=== PATIENT | male | born 1970 | race Caucasian/White ===

== ENCOUNTER 2019-09-27 19:54 | Emergency (ER) | payer OTHER, SELFPAY ==
[2019-09-27 19:55] VITALS: BP 144/93; PULSE 102; RESP 18; TEMP 37; O2SAT 98; BMI 34.0
--- NOTE | 2019-09-27 20:05 | XR_ITS ---
PROCEDURE: XR HAND RT MIN 3V CLINICAL INDICATION: HEARD SOMETHING POP Injury with pain COMPARISON: No exams were available for comparison FINDINGS: No fracture or dislocation. No lytic or blastic change. There is normal mineralization. The joint spaces are well-preserved. No significant degenerative/arthritic changes. No erosive changes evident. Other findings:None. IMPRESSION: No acute findings. Dictated by: Avni Fernandez MD 09/28/2019 07:36 Electronically signed by Avni Fernandez MD in [place] 09/28/2019 07:36
--- NOTE | 2019-09-27 20:28 | HMH.EDUTC ---
[facility] [place] Disposition Clinical Impression: Hand sprain Qualifiers: Encounter type: initial encounter Laterality: right Qualified Code(s): S63.91XA - Sprain of unspecified part of right wrist and hand, initial encounter Disposition: Home, Self-Care Condition on Discharge: Good Instructions: DI for Hand Pain, How To Perform RICE (Rest, Ice, Compress, Elevate), How to Apply an Bandar Wrap Additional Instructions: *RICE, Rest the extremity, Ice 15-20 minutes 3-4 times daily, Compress- wear the bandar wrap as discussed as much as possible to help reduce swelling and pain, Elevate the extremity when at rest *Bandar wrap is for support and help control swelling, use it except in the shower. Be sure that is not to tight but not to loose either *Elevate when resting *Ibuprofen every 6-8 hours as needed for pain an inflammation. If need something more can take Tylenol in between doses of Ibuprofen to help Immediately follow up with your family doctor for new or worsening of symptoms, or no noticeable improvement over the next 3-5 days Call back to [facility] tomorrow for official reading of your xray [phone] Follow up with PCP if no improvement or any worsening of symptoms Return if needed Straight to ER if any life threatening symptoms Referrals: Provider,Referral, MD [Primary Care Provider] - As needed Time of Disposition: 20:51 Medical Decision Making - Patricio Inquiry Pt receiving controlled substance: No Patricio was queried for this patient: No Vital Signs: 09/27/19 19:55 Temperature 98.6 F Temperature Source Oral Pulse Rate [Radial] 102 H Respiratory Rate 18 Blood Pressure [Right Arm] 144/93 H Blood Pressure Mean [Right Arm] 110 Blood Pressure Source [Right Arm] Automatic Cuff Blood Pressure Position [Right Arm] Sitting 02 Sat by Pulse Oximetry 98 Oxygen Delivery Method Room Air Orders (Tests/Meds): ORDERS Category Date Time Status XR hand RT min 3V Stat Exams 09/27/19 20:05 Taken - Radiology Data #1 Image(s): Hand Image Reviewed: Yes I reviewed the patient's radiology image No acute fracture noted, will place in bandar wrap and have patient call back to [facility] for official radiology reading and referral to Orthopedics if needed [facility] [place] HPI - General Stated complaint: Ao 0512 Drying R Hand and something Popped Time Seen by Provider: 09/27/19 20:28 Mode of Arrival: Ambulatory Source of Information: Patient Limitations: No Limitations Description of Symptoms (Recalled from Triage Doc. by RN): thinks he broke his hand or finger HEENT Symptoms (Recalled from RN notes): No Resp Symptoms (Recalled from RN notes): No Skin Symptoms (Recalled from RN notes): No MS Symptoms (Recalled from RN notes): Yes Functional Status (Recalled from RN notes): wnl - History of Present Illness Provider Complaint: Pateint states that he feels like he broke his hand and finger States that he washed his hands earlier and as he was flicking the water off his hands he felt a pop in the top of his right hand and ever since has been having pain in the top of his hand and in his index and middle finger when he moves them or tries to bend them - Related Data Home Medications Medication Instructions Recorded Confirmed Sulfamethoxazole/Trimethoprim 1 tab PO BID 04/06/19 04/06/19 [Bactrim 400-80 mg (SS) Tablet] cephALEXin [Keflex 750mg Cap] 750 mg PO Q12H 04/06/19 04/06/19 Allergies Allergy/AdvReac Type Severity Reaction Status Date / Time aspirin [ASPIRIN] Allergy Mild Unverified 05/05/17 15:17 codeine [CODEINE] Allergy Mild Unverified 05/05/17 15:17 - Worker's Comp Is this a Worker's Comp case?: No [facility] History - Hepatitis A Screen Drug use history?: No High risk sexual behaviors?: No History of sexually transmitted infection?: No 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orker?: No Do you have indoor plumbing?: Yes Do you have electricity?: Yes Attestation statement:: This patient has been screened for Hepatitis A risk fact
[2019-09-27 20:58] VITALS: BP 144/93; PULSE 102; RESP 18; TEMP 37; O2SAT 98
== END 2019-09-27 20:59 | disposition home or self-care (01) ==
PROVIDERS: Emergency Provider Nurse Practitioner
DX: S63.91XA Sprain of unspecified part of right wrist and hand, initial encounter (principal); Z88.5 Allergy status to narcotic agent; X50.0XXA Overexertion from strenuous movement or load, initial encounter; Y92.89 Other specified places as the place of occurrence of the external cause
CPT/HCPCS: 73130; 99201

== ENCOUNTER 2020-06-05 08:57 | Emergency (ER) | payer BC, OTHER, SELFPAY ==
[2020-06-05 09:05] VITALS: BP 148/94; PULSE 93; RESP 19; TEMP 36.9; O2SAT 98; BMI 28.9
[2020-06-05 09:28] VITALS: BP 148/94; PULSE 93; RESP 19; TEMP 36.9; O2SAT 98
--- NOTE | 2020-06-05 09:28 | HMH.EDUTC ---
[facility] [place] Impression: Encounter for laboratory testing for COVID-19 virus Disposition: Home, Self-Care Condition on Discharge: Good Instructions: DI for COVID-19 (Suspected or Confirmed ), Coronavirus Disease 2019, Preventing the Spread of Coronavirus Discharge Instructions Additional Instructions: *Monitor Temp, Over the counter Motrin or Tylenol as directed/as needed Tylenol every 4 hours and Motrin every 6 hours (as long as your family doctor has told you that you can take it) for fever or pain. and straight to ER if unable to lower temp less than 101.0 after medication given *Warm salt water gargles may help to soothe the throat *Throat Lozenges *Warm fluids like tea with honey may help to soothe the throat *Sleep elevated *Humidifier/Vaporizer Follow up IMMEDIATELY for new or worsening symptoms or no Noticeable improvement over the next 48-72 hours. 911 for difficulty breathing or swallowing You were tested for today for COVID19 your test result should be back in the next 24-48 hours, you may call to the [facility] to see if your test results are back in the next 48 hours [phone] [facility] hours are 9am-9pm You was given a handout with instructions for Self Quarantine and Self isolation for while you wait on test results and what to do if they are positive If you are positive the Health Dept will be contacting you also Referrals: PCP,No [Primary Care Provider] - As needed Forms: Work/School Release Time of Disposition: 09:31 Medical Decision Making - Patricio Inquiry Pt receiving controlled substance: No Patricio was queried for this patient: No Vital Signs: 06/05/20 09:05 Temperature 98.4 F Temperature Source Oral Pulse Rate [Right Brachial] 93 H Respiratory Rate 19 Blood Pressure [Right Arm] 148/94 H Blood Pressure Mean [Right Arm] 112 Blood Pressure Source [Right Arm] Automatic Cuff Blood Pressure Position [Right Arm] Sitting 02 Sat by Pulse Oximetry 98 Oxygen Delivery Method Room Air Orders (Tests/Meds): ORDERS Category Date Time Status Covid-19 Nasal PCR Sendout P&[facility] Stat Lab 06/05/20 09:09 [place]dered [facility] [place] - General Stated complaint: Covid test Time Seen by Provider: 06/05/20 09:28 Mode of Arrival: Ambulatory Source of Information: Patient Limitations: No Limitations Description of Symptoms (Recalled from Triage Doc. by RN): NEEDS COVID TEST FOR WORK. WAS SENT HOME D/T FEELING BAD HEENT Symptoms (Recalled from RN notes): No Resp Symptoms (Recalled from RN notes): No Skin Symptoms (Recalled from RN notes): No MS Symptoms (Recalled from RN notes): No Functional Status (Recalled from RN notes): WNL - History of Present Illness Provider Complaint: Patient states that he has been having body aches and chills and not feeling bad State that work sent him home and wanted him to get tested for COVID States that he has not had any fever or anything just feels blah - Related Data Home Medications Medication Instructions Recorded Confirmed Sulfamethoxazole/Trimethoprim 1 tab PO BID 04/06/19 04/06/19 [Bactrim 400-80 mg (SS) Tablet] cephALEXin [Keflex 750mg Cap] 750 mg PO Q12H 04/06/19 04/06/19 Allergies Allergy/AdvReac Type Severity Reaction Status Date / Time aspirin [ASPIRIN] Allergy Mild Unverified 05/05/17 15:17 codeine [CODEINE] Allergy Mild Unverified 05/05/17 15:17 - Worker's Comp Is this a Worker's Comp case?: No [facility] History - Hepatitis A Screen Drug use history?: No High risk sexual behaviors?: No History of sexually transmitted infection?: No 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orker?: No Do you have indoor plumbing?: Yes Do you have electricity?: Yes Attestation statement:: This patient has been screened for Hepatitis A risk factors. I have reviewed the patient's past medical history: Yes Medical History: Reports:: Diabetes Mellitus Type 2 - Social History Smoking Status: Never smoker Tobacco Type: smokeless tobacco # Packs/Day (ci
[2020-06-06 08:49] LABS: Covid-19 Nasal PCR Sendout P&C NEGATIVE
== END 2020-06-05 09:30 | disposition home or self-care (01) ==
PROVIDERS: Emergency Provider Nurse Practitioner
DX: Z20.822 Contact with and (suspected) exposure to COVID-19 (principal); E11.9 Type 2 diabetes mellitus without complications; I10 Essential (primary) hypertension; Z88.5 Allergy status to narcotic agent
CPT/HCPCS: 99202; G0463; U0004

== ENCOUNTER 2020-06-06 13:39 | Emergency (ER) | payer BC, OTHER, SELFPAY ==
[2020-06-06 13:40] VITALS: BP 141/109; PULSE 86; RESP 18; TEMP 36.8; O2SAT 97; BMI 28.9
--- NOTE | 2020-06-06 13:42 | ECG_ITS ---
APPROVED REPORT Exam: Resting ECG HR:94 bpm ECG Measurements Heart Rate 94 AXES GA 160 P 59 QRSd 86 QRS 41 QT 350 T 44 QTc 437 Conclusion Normal sinus rhythm with sinus arrhythmia Normal ECG Electronically signed by : Jhon Sutton, 06/07/2020 20:57:21
--- NOTE | 2020-06-06 13:43 | XR_ITS ---
PROCEDURE: XR CHEST PORTABLE CLINICAL HISTORY: cp Chest pain COMPARISON: CR CXR1 CHEST-PORTABLE from 11/06/2012 CR CXR CHEST(2 VIEWS-NOT PORTABLE) from 10/11/2013 CR CXR CHEST(2 VIEWS-NOT PORTABLE) from 10/16/2013 FINDINGS: The cardiomediastinal silhouette and pulmonary vascularity are within normal limits. There is increased density in both lung apices. The exam is performed in a lordotic position. The increased density may be related to the 1st ribs. Upright PA and lateral chest suggested for confirmation as apical thickening/mass cannot be excluded. No acute bony abnormalities. IMPRESSION: Nonspecific increased density in the lung apices possibly due to the technique and positioning. PA and lateral chest suggested for confirmation. Dictated by: Avni Fernandez MD 06/06/2020 15:02 Avni Fernandez MD in [place] 06/06/2020 15:02
--- NOTE | 2020-06-06 13:44 | HMH.EDGENADL ---
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 Please call a physician on this list to arrange a follow-up appointment as soon as possible. Metformin and amlodipine as prescribed for sugar and blood pressure. If your symptoms continue, go to the urgent treatment center and have a repeat Covid test in 3 days. Prescriptions: Amlodipine Besylate 5 mg PO DAILY #30 tab [id number] Metformin HCl 500 mg PO BID #60 tab Transmission Status: [id number] Referrals: PCP,No [Primary Care Provider] - - Critical Care Critical Care Time: No Attestation: On 06/06/20, the high probability of a clinically significant, sudden or life threatening deterioration of the following system(s) required my full and direct attention, intervention and personal management. The time I documented below is in addition to time spent performing reported procedures but includes the following listed in this critical care notation. Medical Decision Making - Patricio Inquiry Pt receiving controlled substance: No Vital Signs: 06/06/20 13:40 Temperature 98.2 F Temperature Source Oral Pulse Rate [Right Radial] 86 Respiratory Rate 18 Blood Pressure [Right Arm] 141/109 H Blood Pressure Mean [Right Arm] 119 Blood Pressure Source [Right Arm] Automatic Cuff Blood Pressure Position [Right Arm] Sitting 02 Sat by Pulse Oximetry 97 Oxygen Delivery Method Room Air - Lab Data Lab Results 06/06/20 13:44: WBC 5.5, RBC 5.53, Hgb 18.5 H*, Hct 51.0, MCV 92.3, MCH 33.6 H, MCHC 36.4 H, RDW 13.6, Plt Count 186, MPV 7.6, Neut % (Auto) 58.0, Lymph % (Auto) 32.6, Arroyo % (Auto) 7.5, Eos % (Auto) 1.0, Baso % (Auto) 0.8, Neut # (Auto) 3.2, Lymph # (Auto) 1.8, Arroyo # (Auto) 0.4, Eos # (Auto) 0.1, Baso # (Auto) 0.0 06/06/20 13:44: Sodium 135 L, Potassium 4.1, Chloride 100, Carbon Dioxide 25, Anion Gap 14.1, BUN 13, Creatinine 0.70, Estimated GFR 119, Est GFR ( Amer) 144, Glucose 378 H, Calcium 9.8, Total Bilirubin 0.8, AST 30, ALT 34, Alkaline Phosphatase 121, Troponin I < 0.01, Total Protein 8.0, Albumin 4.7, Globulin 3.3 H, Albumin/Globulin Ratio 1.4 06/06/20 13:44: Lipase 543 H 06/06/20 13:44: SARS-CoV-2 IgG Ab (Rapid) Negative, SARS-CoV-2 IgM Ab (Rapid) Negative 06/06/20 13:44: Magnesium 1.8 06/06/20 14:30: Lactate 1.9 06/06/20 15:09: Urine Color Yellow, Urine Appearance Clear, Urine pH 6.0, Ur Specific Odum 1.010, Urine Protein Negative, Urine Glucose (UA) 3+, Urine Ketones Negative, Urine Blood Negative, Urine Nitrate Negative, Urine Bilirubin Negative, Urine Urobilinogen 0.2, Ur Leukocyte Esterase Negative, Urine WBC Occasional, Ur Squamous Epith Cells Occasional, Urine Bacteria Trace Result diagrams: 06/06/20 13:44 06/06/20 13:44 Orders (Tests/Meds): ED MEDICATIONS Discontinued Medications Generic Name Dose Route Start Last Admin Trade Name Keonq PRN Reason Stop Dose Admin Iopamidol 75 ml 06/06/20 15:14 06/06/20 15:15 Iopamidol-370 (76%);100ml Bottle IV 06/06/20 15:15 75 ml ONCE ONE Administration ORDERS Category Date Time Status Troponin I Q3H Lab 06/06/20 16:45 Ordered Troponin I Q3H Lab 06/06/20 19:45 Ordered Blood Culture Stat Micro 06/06/20 14:30 Received - Radiology Data #1 Image(s): Chest Image Reviewed: Yes I reviewed the patient's radiology image PROCEDURE: XR CHEST PORTABLE CLINICAL HISTORY: cp Chest pain
[2020-06-06 13:57] LABS: Chloride 100 mmol/L (98-107); Potassium 4.1 mmoL/L (3.5-5.1); Sodium 135 mmol/L (136-145)
[2020-06-06 14:00] LABS: Alanine Aminotransferase 34 U/L (12-78); Albumin Level 4.7 g/dl (3.5-5.0); Albumin/Globulin Ratio 1.4 (1.1-1.8); Alkaline Phosphatase 121 U/L (38-126); Anion Gap 14.1 mEq/L (5-15); Aspartate Amino Transferase 30 U/L (17-59); Bilirubin,Total 0.8 mg/dl (0.2-1.3); Blood Urea Nitrogen 13 mg/dl (9-20); Carbon Dioxide 25 mmol/L (22.0-30.0); Estimated Glomerular Filt Rate 119 ml/min (>60); GFR (African American) 144 ML/MIN (>60); Globulin 3.3 g/dL (1.3-3.2)
--- NOTE | 2020-06-06 14:00 | CT_ITS ---
PROCEDURE: CT ABDOMEN PELVIS W CON CLINICAL INDICATION: abdominal pain Upper abdominal pain COMPARISON: CT ABDPELW/O CT ABD PELVIS W/O CONTRAST from 04/17/2016 TECHNIQUE: IV Contrast: 75ML Isovue 370 Oral Contrast None Axial images obtained with sagittal and coronal reformats. All CT scans at the facility use one or more dose reduction, viz: automated exposure control, ma/kV adjustment per patient size (including targeted exams where dose is matched to indication, i.e. head), or iterative reconstruction technique. FINDINGS: LOWER THORAX: Stable 4 mm nodule right lung base anteriorly. Coronary artery calcifications ABDOMEN & PELVIS: Fatty liver. The gallbladder, spleen, adrenal glands, pancreas and kidneys have an unremarkable appearance. No renal or ureteral calculi. No intestinal obstruction or free air. There are few scattered small mesenteric lymph nodes. The appendix is retrocecal.. The tip of the appendix is slightly prominent at 8 mm. This however did have a similar appearance on 04/17/2016. There is no stranding of the periappendiceal fat. There is some haziness of the periappendiceal fat and space however this is felt to be due to motion artifact as the colon on the same images have a similar appearance. There is a mild amount of retained colonic feces in the rectosigmoid region. No evidence of diverticulitis. There are mild degenerative changes in the lower thoracic spine with mild kyphosis. IMPRESSION: No acute finding. Dictated by: Avni Fernandez MD 06/06/2020 15:37 Avni Fernandez MD in [place] 06/06/2020 15:37
[2020-06-06 14:01] LABS: Calcium 9.8 mg/dl (8.4-10.2); Glucose 378 mg/dl (74-100)
[2020-06-06 14:10] VITALS: BP 152/100; PULSE 92; O2SAT 96
[2020-06-06 14:15] LABS: Troponin I < 0.01 ng/ml (0.00-0.034)
[2020-06-06 14:23] LABS: Basophils % 0.8 % (0.1-2.0); Eosinophils # 0.1 K/mm3 (0.0-0.4); Lymphocytes # 1.8 K/mm3 (0.7-4.5); Mean Corpuscular HGB Conc 36.4 g/dL (31.8-35.4); Monocytes # 0.4 K/mm3 (0.1-1.0); Neutrophils # 3.2 K/mm3 (1.8-7.8); Red Cell Distribution Width 13.6 % (11.5-17.5)
[2020-06-06 14:34] LABS: Coronavirus 19 IgG Antibody Negative (Negative); Coronavirus 19 IgM Antibody Negative (Negative)
[2020-06-06 14:41] LABS: Lymphocytes % 32.6 % (10-50); Mean Corpuscular Hemoglobin 33.6 pg (27.0-31.2); Mean Corpuscular Volume 92.3 fl (80-94); Mean Platelet Volume 7.6 fl (7.4-10.4); Monocytes % 7.5 % (1.7-9.3); Platelet Count 186 K/mm3 (142-424); Red Blood Count 5.53 M/mm3 (4.60-6.20); White Blood Count 5.5 K/mm3 (4.8-10.8)
[2020-06-06 14:44] LABS: Hemoglobin 18.5 g/dL (14.1-18.0)
--- NOTE | 2020-06-06 14:56 | PC.NURSE ---
pt returned from radiology
[2020-06-06 14:59] LABS: Lactic Acid 1.9 mmol/L (0.7-2.1)
[2020-06-06 15:00] VITALS: BP 169/109; PULSE 82; O2SAT 97
[2020-06-06 15:13] LABS: Microscopic, Urine URINE MICROSCOPIC (MICROSCOPIC)
[2020-06-06 15:15] LABS: Appearance,Urine CLEAR (Clear); Bilirubin,Urine Negative (Negative); Blood, Urine Negative (Negative); Color,Urine YELLOW (Yellow); Glucose,Urine (UA) 3+ (Negative); Ketones,Urine Negative (Negative); Leukocyte Esterase,Urine Negative (Negative); Nitrate,Urine Negative (Negative); Protein,Urine Negative (Negative); Urobilinogen,Urine 0.2 EU/dl (0.2)
[2020-06-06 15:24] LABS: Lipase 543 U/L (23-300)
--- NOTE | 2020-06-06 15:29 | XR_ITS ---
PROCEDURE: XR CHEST 2V CLINICAL HISTORY: cough COMPARISON: CR CXR CHEST(2 VIEWS-NOT PORTABLE) from 10/11/2013 CR CXR CHEST(2 VIEWS-NOT PORTABLE) from 10/16/2013 DX XR CHEST PORTABLE from 06/06/2020 FINDINGS: The cardiomediastinal silhouette and pulmonary vascularity are within normal limits. The lungs are clear without infiltrates, suspicious nodules, or pleural effusions. Mild degenerative changes are present in the thoracic and lumbar spine IMPRESSION: No acute findings. Dictated by: Avni Fernandez MD 06/06/2020 15:54 Avni Fernandez MD in [place] 06/06/2020 15:54
[2020-06-06 15:30] VITALS: BP 156/107; PULSE 87; O2SAT 96
[2020-06-06 15:50] LABS: Magnesium 1.8 mg/dl (1.6-2.3)
[2020-06-06 16:00] VITALS: BP 150/109; PULSE 88; O2SAT 95
[2020-06-06 16:05] LABS: Bacteria,Urine Trace /lpf; Squamous Epithelial Cell,Urine Occasional #/hpf (0-5); WBC,Urine Occasional #/hpf (0-3)
[2020-06-06 16:36] VITALS: BP 158/108; PULSE 97; RESP 18; TEMP 36.9; O2SAT 96
== END 2020-06-06 16:36 | disposition home or self-care (01) ==
PROVIDERS: Emergency Provider Emergency Medicine
DX: R10.10 Upper abdominal pain, unspecified (principal); E11.65 Type 2 diabetes mellitus with hyperglycemia; I10 Essential (primary) hypertension; R74.8 Abnormal levels of other serum enzymes; R35.1 Nocturia; Z88.5 Allergy status to narcotic agent; Z79.899 Other long term (current) drug therapy
CPT/HCPCS: 36415; 71045; 71046; 74177; 80053; 81001; 83605; 83690; 83735; 84484; 85025; 86328; 87040; 93005; 99284; Q9967

== ENCOUNTER 2020-06-14 14:54 | Emergency (ER) | payer BC, OTHER, SELFPAY ==
[2020-06-14 15:11] VITALS: BP 142/83; PULSE 84; RESP 19; TEMP 36.9; O2SAT 98; BMI 29.2
[2020-06-14 15:21] LABS: UTC Influenza A Antigen Negative (Negative); UTC Strep Screen (Rapid) Positive (Negative)
[2020-06-14 15:22] LABS: UTC Influenza B Antigen Negative (Negative)
--- NOTE | 2020-06-14 15:30 | HMH.EDUTC ---
[facility] [place] Disposition Clinical Impression: Strep throat Disposition: Home, Self-Care Condition on Discharge: Good Instructions: Strep Throat (Alternative Therapy), DI for Strep Throat, Benzonatate, Amoxicillin, DI for COVID-19 (Suspected or Confirmed ) Additional Instructions: *Monitor Temp, Over the counter Motrin or Tylenol as directed/as needed Tylenol every 4 hours and Motrin every 6 hours (as long as your family doctor has told you that you can take it) for fever or pain. and straight to ER if unable to lower temp less than 101.0 after medication given *Warm salt water gargles may help to soothe the throat *Throat Lozenges *Warm fluids like tea with honey may help to soothe the throat *Sleep elevated *Humidifier/Vaporizer Follow up IMMEDIATELY for new or worsening symptoms or no Noticeable improvement over the next 48-72 hours. 911 for difficulty breathing or swallowing You were tested for today for COVID19 your test result should be back in the next 24-48 hours, you may call to the [facility] to see if your test results are back in the next 48 hours [phone] [facility] hours are 9am-9pm You was given a handout with instructions for Self Quarantine and Self isolation for while you wait on test results and what to do if they are positive If you are positive the Health Dept will be contacting you also Prescriptions: Amoxicillin [Amoxicillin 500mg Cap] 500 mg PO BID 10 Days #20 cap Transmission Status: Received by [facility] Benzonatate [Tessalon Perle 100mg Cap*] 100 mg PO TID PRN #15 cap PRN Reason: Cough Transmission Status: Received by [facility] Referrals: PCP,No [Primary Care Provider] - Forms: Work/School Release Time of Disposition: 15:42 Medical Decision Making - Patricio Inquiry Pt receiving controlled substance: No Patricio was queried for this patient: No Vital Signs: 06/14/20 15:11 Temperature 98.4 F Temperature Source Oral Pulse Rate [Right] 84 Respiratory Rate 19 Blood Pressure [Right Arm] 142/83 H Blood Pressure Mean [Right Arm] 102 Blood Pressure Source [Right Arm] Automatic Cuff Blood Pressure Position [Right Arm] Sitting 02 Sat by Pulse Oximetry 98 Oxygen Delivery Method Room Air - Lab Data Lab results reviewed: Yes: I reviewed the patient's lab results. Lab Results 06/14/20 15:10: Influenza Type A Ag Negative, Influenza Type B Ag Negative 06/14/20 15:10: Strep Scn Rapid [facility] Positive A Orders (Tests/Meds): ORDERS Category Date Time Status Covid-19 Nasal PCR ([facility]) Routine Lab 06/14/20 15:00 Received [facility] [place] HPI - General Stated complaint: covid test,symtoms Time Seen by Provider: 06/14/20 15:30 Mode of Arrival: Ambulatory Source of Information: Patient Limitations: No Limitations Description of Symptoms (Recalled from Triage Doc. by RN): body aches, REYNOSO, chest congesion for three days. daughter recently tested positive for the flu. HEENT Symptoms (Recalled from RN notes): Yes (REYNOSO) Resp Symptoms (Recalled from RN notes): Yes (chest congestion) Skin Symptoms (Recalled from RN notes): No MS Symptoms (Recalled from RN notes): Yes (body aches) Functional Status (Recalled from RN notes): na - History of Present Illness Provider Complaint: Patient state that he has not been feeling well for about 3-4 days States that he has been having sore throat body aches, and fever State that he was tested for COVID and it was negative but there has been several cases at his work so he wanted to get tested again State that also his daughter just had the flu - Related Data Home Medications Medication Instructions Recorded Confirmed Sulfamethoxazole/Trimethoprim 1 tab PO BID 04/06/19 04/06/19 [Bactrim 400-80 mg (SS) Tablet] cephALEXin [Keflex 750mg Cap] 750 mg PO Q12H 04/06/19 04/06/19 Previous Rx's Medication Instructions Recorded Amlodipine Besylate 5 mg PO DAILY #30 tab 06/06/20 Metformin HCl 500 mg PO BID #60 tab 06/06/20 Amoxicillin [Amoxicillin 5
[2020-06-14 15:55] VITALS: BP 131/80; PULSE 79; RESP 18; TEMP 36.8
== END 2020-06-14 15:57 | disposition home or self-care (01) ==
PROVIDERS: Emergency Provider Nurse Practitioner
DX: J02.0 Streptococcal pharyngitis (principal); Z20.822 Contact with and (suspected) exposure to COVID-19
CPT/HCPCS: 87804; 87880; 99202; G0463; U0003

== ENCOUNTER → 2020-09-21 09:06 | Outpatient (CLI) | payer BC, OTHER, SELFPAY ==
--- NOTE | 2020-09-21 09:14 | XR_ITS ---
PROCEDURE: XR SHOULDER LT MIN 2V CLINICAL INDICATION: PAIN IN LT SHOULDER COMPARISON: No exams were available for comparison FINDINGS: No fracture or dislocation. No lytic or blastic change. There is normal mineralization. The joint spaces are well-preserved. No significant degenerative/arthritic changes. No erosive changes evident. Other findings:No subacromial stenosis IMPRESSION: Negative left shoulder Dictated by: Avni Fernandez MD 09/21/2020 12:22 Avni Fernandez MD in [place] 09/21/2020 12:22
== END ==
PROVIDERS: PCP Nurse Practitioner Family; Visit Provider Nurse Practitioner Family
DX: M25.512 Pain in left shoulder (principal)
CPT/HCPCS: 73030

== ENCOUNTER 2021-03-22 09:12 | Emergency (ER) | payer BC, SELFPAY ==
[2021-03-22 09:23] VITALS: BP 146/107; PULSE 103; RESP 16; O2SAT 99; BMI 28.0
--- NOTE | 2021-03-22 09:32 | HMH.EDUTC ---
[facility] Disposition Clinical Impression: Muscle spasm of left lower extremity Disposition: Home, Self-Care Condition on Discharge: Good Instructions: DI for Muscle Spasm Additional Instructions: Follow up with PCP regarding your diabetes Prescriptions: Cyclobenzaprine HCl [Flexeril 10mg tablet] 10 mg PO Q8HP PRN 10 Days #30 tab PRN Reason: Muscle Spasm Transmission Status: Pending to [id number] Referrals: Provider,Referral, [Primary Care Provider] - Forms: Work/School Release Time of Disposition: 11:18 Medical Decision Making - Patricio Inquiry Pt receiving controlled substance: No Vital Signs: 03/22/21 09:23 03/22/21 10:51 Temperature 98.1 F Pulse Rate 103 H Pulse Rate [Left] 103 H Respiratory Rate 16 16 Blood Pressure 146/101 H Blood Pressure [Right Arm] 146/107 H Blood Pressure Mean [Right Arm] 120 02 Sat by Pulse Oximetry 99 - Lab Data Lab results reviewed: Yes: I reviewed the patient's lab results. Lab Results 03/22/21 09:53: Sodium 137, Potassium 4.6, Chloride 100, Carbon Dioxide 26, Anion Gap 15.6 H, BUN 11, Creatinine 0.80, Estimated Creat Clear 133, Estimated GFR 102, Est GFR ( Amer) 123, Glucose 324 H, Calcium 9.5, Magnesium 1.7 03/22/21 09:53: PT 11.0, INR 0.97 Result diagrams: 03/22/21 09:53 - US Data US Images: Lower Extremity ED US Reviewed: Yes: I have reviewed the patient's US results Preliminary Findings: Normal/NAD (Negative DVT per US tech) [facility] HPI - General Stated complaint: knots in back of left leg Time Seen by Provider: 03/22/21 10:04 Mode of Arrival: Ambulatory Source of Information: Patient Limitations: No Limitations Description of Symptoms (Recalled from Triage Doc. by RN): pt states he woke up around 0130 and was having a juan carlos horse. pt states he has these frequently but this is one of the worst and has not gotten any better. pt has a golf ball size knot on the L posterior upper thigh. pt HEENT Symptoms (Recalled from RN notes): No Resp Symptoms (Recalled from RN notes): No Skin Symptoms (Recalled from RN notes): No MS Symptoms (Recalled from RN notes): Yes (pt c/o L posterior upper thigh pain and a knot) Functional Status (Recalled from RN notes): na - History of Present Illness Provider Complaint: Patient presents with pain in his left leg. He states that he gets Charley Horses somewhat frequently. They usually occur at night, start in his toes, and then spread up his leg. Usually he is able to get up and walk around and work them out. Sometimes he eats a spoonful of salt and that helps. Last night, he was sleeping when a charley horse in the back of his left leg woke him from sleep. This morning he fell out of bed because he couldn't put weight on the leg and pain is now radiating up his leg. He has pain and swelling in the calf, pain and a knot just under his left buttock. Pain is radiating to his groin and low back. He states he does not take any medicines on a regular basis. He has never had a DVT. Onset (ago): hour(s) (8) Location: left, lower extremity Radiation: proximal Severity: severe Severity scale (1-10): 7 Quality: sharp, constant Consistency: constant Exacerbating factors: other (weight bearing) Associated symptoms: denies other symptoms Treatments prior to arrival: none - Related Data Home Medications Medication Instructions Recorded Confirmed Sulfamethoxazole/Trimethoprim 1 tab PO BID 04/06/19 04/06/19 [Bactrim 400-80 mg (SS) Tablet] cephALEXin [Keflex 750mg Cap] 750 mg PO Q12H 04/06/19 04/06/19 Previous Rx's Medication Instructions Recorded Amlodipine Besylate 5 mg PO DAILY #30 tab 06/06/20 Metformin HCl 500 mg PO BID #60 tab 06/06/20 Amoxicillin [Amoxicillin 500mg 500 mg PO BID 10 Days #20 cap 06/14/20 Cap] Benzonatate [Tessalon Perle 100mg 100 mg PO TID PRN #15 cap 06/14/20 Cap*] Cyclobenzaprine HCl [Flexeril 10mg 10 mg PO Q8HP PRN 10 Days #30 tab 03/22/21 tablet]
--- NOTE | 2021-03-22 09:45 | CA_ITS ---
APPROVED REPORT Left Lower Extremity Venous Study for DVT. Lock Tender: Yue Ferreira RVT Indications Lower Extremity Pain: Left MUSCLE CRAMP LT POST THIGH Vein Imaging CFV (L): compressive, spontaneous, phasic, augmentation FEM (L): compressive, spontaneous, phasic, augmentation POP (L): compressive, spontaneous, phasic, augmentation PTV (L): Compressible GSV (L): Compressible Peroneals (L):Compressible GAS (L): Compressible Findings Study suggests no evidence of DVT or SVT of the left lower extremity. Conclusion Study suggests no evidence of DVT or SVT of the left lower extremity. Critical Notification Physician Notified Date: 03/22/2021 Time: 10:05 Physician Name: Mak Peoples Electronically signed by : Avni Fernandez MD 03/22/2021 15:26:56
[2021-03-22 10:45] LABS: INR 0.97 (0.9-1.1)
[2021-03-22 10:50] LABS: Chloride 100 mmol/L (98-107); Sodium 137 mmol/L (136-145)
[2021-03-22 10:51] VITALS: BP 146/101; PULSE 103; RESP 16; TEMP 36.7
[2021-03-22 10:51] LABS: Potassium 4.6 mmoL/L (3.5-5.1)
[2021-03-22 10:53] LABS: Anion Gap 15.6 mEq/L (5-15); Blood Urea Nitrogen 11 mg/dl (9-20); Carbon Dioxide 26 mmol/L (22.0-30.0); Creatinine Clearance Estimated 133 mL/min (50-200); Estimated Glomerular Filt Rate 102 ml/min (>60); GFR (African American) 123 ML/MIN (>60)
[2021-03-22 10:54] LABS: Calcium 9.5 mg/dl (8.4-10.2); Glucose 324 mg/dl (74-100); Magnesium 1.7 mg/dl (1.6-2.3)
== END 2021-03-22 11:39 | disposition home or self-care (01) ==
PROVIDERS: Emergency Provider Physician Assistant
DX: M62.838 Other muscle spasm (principal); M79.662 Pain in left lower leg
CPT/HCPCS: 80048; 83735; 85610; 93971; 99202; G0463

== ENCOUNTER 2021-04-26 09:04 | Emergency (ER) | payer BC, SELFPAY ==
[2021-04-26 09:10] VITALS: BP 133/83; PULSE 102; RESP 19; TEMP 36.9; O2SAT 98; BMI 29.5
[2021-04-26 09:40] LABS: UTC Influenza A Antigen Negative (Negative); UTC Influenza B Antigen Negative (Negative)
--- NOTE | 2021-04-26 09:56 | HMH.EDUTC ---
[facility] [place] Disposition Clinical Impression: Viral syndrome, Exposure to COVID-19 virus Disposition: Home, Self-Care Condition on Discharge: Good Instructions: DI for Viral Syndrome, DI for COVID-19 (Suspected or Confirmed ), Preventing the Spread of Coronavirus Discharge Instructions Additional Instructions: Drink plenty of fluids. Take tylenol or ibuprofen for pain or fever. Take the medications as directed. Follow up with your regular doctor. GO TO THE ER FOR ANY WORSENING SYMPTOMS Quarantine until you know the results of your covid-19 test. If it is positive, the health department should call you and give you further instructions about your length of Quarantine and other things. Notify your school or workplace of your results and follow their instructions regarding return to work/school. Prescriptions: Ondansetron [Zofran 4mg ODT] 4 mg PO Q8HP PRN #20 tab PRN Reason: Nausea Transmission Status: Received by [id number] Referrals: Provider,Referral, [Primary Care Provider] - Forms: Work/School Release Time of Disposition: 10:10 Medical Decision Making - Medical Records Medical records reviewed: No: I reviewed the patient's medical records. - Patricio Inquiry Pt receiving controlled substance: No Vital Signs: 04/26/21 09:10 04/26/21 10:10 Temperature 98.5 F 98.5 F Temperature Source Oral Pulse Rate 102 H Pulse Rate [Right Brachial] 102 H Respiratory Rate 19 19 Blood Pressure 133/83 Blood Pressure [Right Arm] 133/83 Blood Pressure Mean [Right Arm] 99 Blood Pressure Source [Right Arm] Automatic Cuff Blood Pressure Position [Right Arm] Sitting 02 Sat by Pulse Oximetry 98 Oxygen Delivery Method Room Air - Lab Data Lab Results 04/26/21 09:30: Influenza Type A Ag Negative, Influenza Type B Ag Negative [facility] [place] HPI - General Stated complaint: sore throat, bodyaches, sob, headaches Time Seen by Provider: 04/26/21 09:56 Mode of Arrival: Ambulatory Source of Information: Patient Limitations: No Limitations Description of Symptoms (Recalled from Triage Doc. by RN): PATIENT C/O BODY ACHES, CHILLS, AND FEVER. EXPOSED TO COVID LAST WEEK HEENT Symptoms (Recalled from RN notes): No Resp Symptoms (Recalled from RN notes): No Skin Symptoms (Recalled from RN notes): No MS Symptoms (Recalled from RN notes): Yes Functional Status (Recalled from RN notes): WNL - History of Present Illness Provider Complaint: He states that he began to feel bad about 2 days ago. He denies any specific symptoms other than he feels bad and has body aches. - Related Data Home Medications Medication Instructions Recorded Confirmed Amlodipine Besylate 5 mg PO DAILY 04/26/21 04/26/21 Metformin HCl 500 mg PO BID 04/26/21 04/26/21 Previous Rx's Medication Instructions Recorded Ondansetron [Zofran 4mg ODT] 4 mg PO Q8HP PRN #20 tab 04/26/21 Allergies Allergy/AdvReac Type Severity Reaction Status Date / Time aspirin [ASPIRIN] Allergy Mild Verified 06/05/20 09:30 codeine [CODEINE] Allergy Mild Verified 06/05/20 09:30 - Worker's Comp Is this a Worker's Comp case?: No [facility] History - Hepatitis A Screen Drug use history?: No High risk sexual behaviors?: No History of sexually transmitted infection?: No 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orker?: No Do you have indoor plumbing?: Yes Do you have electricity?: Yes Attestation statement:: This patient has been screened for Hepatitis A risk factors. I have reviewed the patient's past medical history: Yes Medical History: Reports:: Diabetes Mellitus Type 2 - Social History Smoking Status: Never smoker Tobacco Type: smokeless tobacco # Packs/Day (cigarettes): 0 Alcohol Intake: never Occupational Status: other Housing: house ROS Obtained: Yes All systems reviewed & no additional complaints - Constitutional Constitutional: Reports as per HPI - Eyes Eyes: Denies eye discharge - ENT Ears, Nose, Mouth, and T
[2021-04-26 10:10] VITALS: BP 133/83; PULSE 102; RESP 19; TEMP 36.9; O2SAT 98
== END 2021-04-26 10:14 | disposition home or self-care (01) ==
PROVIDERS: Nurse Practitioner; Emergency Provider Nurse Practitioner Family
DX: U07.1 COVID-19 (principal); J02.9 Acute pharyngitis, unspecified; E11.9 Type 2 diabetes mellitus without complications; Z88.5 Allergy status to narcotic agent
CPT/HCPCS: 87804; 99202; C9803; G0463; U0003; U0005

== ENCOUNTER 2021-04-30 11:37 | Emergency (ER) | payer BC, SELFPAY ==
--- NOTE | 2021-04-30 11:37 | ECG_ITS ---
APPROVED REPORT Exam: Resting ECG HR:111 bpm ECG Measurements Heart Rate 111 AXES VA 156 P 55 QRSd 90 QRS -12 QT 338 T 25 QTc 459 Conclusion Sinus tachycardia Late R wave progression Abnormal ECG Electronically signed by : Jhon Sutton MD 04/30/2021 17:54:54
--- NOTE | 2021-04-30 11:51 | HMH.EDGENADL ---
ED Disposition Clinical Impression: Pneumonia due to COVID-19 virus, Hyperglycemia Type 2 diabetes mellitus Qualifiers: Diabetes mellitus longterm insulin use: without longterm use Diabetes mellitus complication status: without complication Qualified Code(s): E11.9 - Type 2 diabetes mellitus without complications Disposition: Home, Self-Care Condition on Discharge: Fair Instructions: DI for Diabetes Type 2, DI for Hyperglycemia -- Adult, DI for COVID-19 (Suspected or Confirmed ) Additional Instructions: You will be called with an appointment for monoclonal antibody infusion. Tylenol or ibuprofen for fever and pain. Glipizide as prescribed for diabetes. See Dr. Landa in his office next week, call for appointment. COVID-19 Isolation: Isolate yourself for a MINIMUM of 10 days from onset of symptoms: What to do: Monitor your symptoms. If you have an emergency warning sign (including trouble breathing), seek emergency medical care immediately. Stay in a separate room from other household members, if possible. Use a separate bathroom, if possible. Avoid contact with other members of the household and pets. Don?t share personal household items, like cups, towels, and utensils. Wear a mask when around other people if able. You can be around others AFTER: 10 days since symptoms first appeared AND 24 hours with no fever without the use of fever-reducing medications AND Other symptoms of COVID-19 are improving Prescriptions: glipiZIDE [Glucotrol 5mg tablet] 5 mg PO DAILY #14 tab Transmission Status: Received by [id number] Referrals: Provider,MD Tuan [Primary Care Provider] - Joao Landa MD [Staff Physician] - - Critical Care Critical Care Time: No Attestation: On , the high probability of a clinically significant, sudden or life threatening deterioration of the following system(s) required my full and direct attention, intervention and personal management. The time I documented below is in addition to time spent performing reported procedures but includes the following listed in this critical care notation. Medical Decision Making - Patricio Inquiry Pt receiving controlled substance: No Vital Signs: 04/30/21 11:56 04/30/21 15:16 Temperature 98.9 F 99 F Temperature Source Oral Pulse Rate 76 Pulse Rate [Left Radial] 112 H Respiratory Rate 18 20 Blood Pressure 136/94 H Blood Pressure [Right Arm] 161/97 H Blood Pressure Mean [Right Arm] 118 Blood Pressure Source [Right Arm] Automatic Cuff Blood Pressure Position [Right Arm] Sitting 02 Sat by Pulse Oximetry 93 L Oxygen Delivery Method Room Air Room Air - Lab Data Lab Results 04/30/21 11:50: WBC 2.4 L, RBC 5.55, Hgb 17.9, Hct 50.3, MCV 90.7, MCH 32.2 H, MCHC 35.5 H, RDW 12.6, Plt Count 74 L, MPV 8.2, Neut % (Auto) 55.9, Lymph % (Auto) 35.7, [place] % (Auto) 7.3, Eos % (Auto) 0.0 L, Baso % (Auto) 1.0, Neut # (Auto) 1.3 L, Lymph # (Auto) 0.9, [place] # (Auto) 0.2, Eos # (Auto) 0.0, Baso # (Auto) 0.0 04/30/21 11:50: Sodium 133 L, Potassium 4.4, Chloride 95 L, Carbon Dioxide 28, Anion Gap 14.4, BUN 14, Creatinine 0.70, Estimated Creat Clear 160, Estimated GFR 119, Est GFR ( Amer) 144, Glucose 330 H, Calcium 9.0, Troponin I < 0.01 04/30/21 11:50: D-Dimer 0.69 H 04/30/21 11:52: SARS-CoV-2 (PCR) Detected A, Influenza A Untype (PCR) Not detected, Influenza Type B (PCR) Not detected 04/30/21 14:53: Troponin I < 0.01 Result diagrams: 04/30/21 11:50 04/30/21 11:50 Orders (Tests/Meds): ED MEDICATIONS Discontinued Medications Generic Name Dose Route Start Last Admin Trade Name Keonq PRN Reason Stop Dose Admin Acetaminophen 650 mg 04/30/21 13:57 04/30/21 13:59 Acetaminophen 325mg Tab PO 04/30/21 13:58 650 mg ONCE ONE Administration Iopamidol 70 ml 04/30/21 14:37 04/30/21 14:38 Iopamidol-370 (76%);100ml Bottle IV 04/30/21 14:38 70 ml ONCE ONE Administration Ondansetron H
[2021-04-30 11:52] VITALS: BMI 29.5
--- NOTE | 2021-04-30 11:52 | XR_ITS ---
PROCEDURE: XR CHEST PORTABLE CLINICAL HISTORY: chest pain- covid + COMPARISON: CR CXR CHEST(2 VIEWS-NOT PORTABLE) from 10/16/2013 CR XR CHEST 2V from 06/06/2020 DX XR CHEST PORTABLE from 06/06/2020 FINDINGS: The cardiomediastinal silhouette and pulmonary vascularity are within normal limits. Vague increased density left lower lobe suspicious for an area ground-glass infiltrate which may be seen with Covid19 pneumonia No acute bony abnormalities. IMPRESSION: Left lower lobe infiltrate Dictated by: Avni Fernandez MD 04/30/2021 12:40 Avni Fernandez MD in [place] 04/30/2021 12:40
[2021-04-30 11:56] VITALS: BP 161/97; PULSE 112; RESP 18; TEMP 37.2; O2SAT 93; BMI 29.5
[2021-04-30 12:09] LABS: Hematocrit 50.3 % (42.0-52.0); Hemoglobin 17.9 g/dL (14.1-18.0); Lymphocytes # 0.9 K/mm3 (0.7-4.5); Lymphocytes % 35.7 % (10-50); Mean Corpuscular HGB Conc 35.5 g/dL (31.8-35.4); Mean Corpuscular Hemoglobin 32.2 pg (27.0-31.2); Mean Corpuscular Volume 90.7 fl (80-94); Mean Platelet Volume 8.2 fl (7.4-10.4); Monocytes # 0.2 K/mm3 (0.1-1.0); Monocytes % 7.3 % (1.7-9.3); Neutrophils # 1.3 K/mm3 (1.8-7.8); Neutrophils % 55.9 % (37.0-80.0); Platelet Count 74 K/mm3 (142-424); Red Blood Count 5.55 M/mm3 (4.60-6.20); Red Cell Distribution Width 12.6 % (11.5-17.5); White Blood Count 2.4 K/mm3 (4.8-10.8)
[2021-04-30 12:10] LABS: Influenza A, PCR Not Detected (NotDetected); Influenza B, PCR Not Detected (NotDetected)
[2021-04-30 12:10] LABS: Chloride 95 mmol/L (98-107); Potassium 4.4 mmoL/L (3.5-5.1); Sodium 133 mmol/L (136-145)
[2021-04-30 12:13] LABS: Anion Gap 14.4 mEq/L (5-15); Blood Urea Nitrogen 14 mg/dl (9-20); Carbon Dioxide 28 mmol/L (22.0-30.0); Creatinine Clearance Estimated 160 mL/min (50-200); Estimated Glomerular Filt Rate 119 ml/min (>60); GFR (African American) 144 ML/MIN (>60); Glucose 330 mg/dl (74-100)
[2021-04-30 12:25] LABS: D-Dimer 0.69 ug/mL (0.0-0.5)
[2021-04-30 12:26] LABS: Troponin I < 0.01 ng/ml (0.00-0.034)
[2021-04-30 12:38] LABS: Coronavirus 19, PCR Detected (NotDetected)
--- NOTE | 2021-04-30 13:50 | CT_ITS ---
PROCEDURE: CT ANGIO CHEST PE PROTOCOL CLINCIAL INDICATION: covid, chest pain, elev d-dimer COMPARISON: No exams were available for comparison TECHNIQUE: IV Contrast: 70ML Isovue 370 Axial images obtained with sagittal and coronal reformats. All CT scans at the facility use one or more dose reduction, viz: automated exposure control, ma/kV adjustment per patient size (including targeted exams where dose is matched to indication, i.e. head), or iterative reconstruction technique. FINDINGS: No evidence of pulmonary embolus, aortic aneurysm, or aortic dissection. Scattered one multifocal peripheral ground glass infiltrates are present in both upper and lower lobes consistent with Covid19 pneumonia. Minimal atelectatic changes in the lung bases. No effusions. No evidence of pneumothorax. Small pulmonary nodules may be obscured by the opacities. No acute bony anomalies Fatty liver with hepatomegaly and borderline splenomegaly. IMPRESSION: 1. No evidence of pulmonary embolus, aortic aneurysm, or aortic dissection. 2. Findings compatible with mild multifocal Covid19 pneumonia Dictated by: Avni Fernandez MD 04/30/2021 14:49 Avni Fernandez MD in [place] 04/30/2021 14:49
[2021-04-30 15:16] VITALS: BP 136/94; PULSE 76; RESP 20; TEMP 37.2; O2SAT 98
[2021-04-30 15:43] LABS: Troponin I < 0.01 ng/ml (0.00-0.034)
== END 2021-04-30 15:18 | disposition home or self-care (01) ==
PROVIDERS: Emergency Provider Emergency Medicine
DX: U07.1 COVID-19 (principal); J12.82 Pneumonia due to coronavirus disease 2019; E11.65 Type 2 diabetes mellitus with hyperglycemia; Z79.899 Other long term (current) drug therapy
CPT/HCPCS: 36415; 71045; 71275; 80048; 84484; 85025; 85378; 93005; 96374; 99283; C9803; J2405; Q9967; U0003; U0005

== ENCOUNTER 2021-05-01 20:52 | Emergency (ER) | payer BC, SELFPAY ==
[2021-05-01 20:53] VITALS: BP 121/77; PULSE 101; RESP 20; TEMP 36.9; O2SAT 96; BMI 29.5
--- NOTE | 2021-05-01 21:16 | HMH.EDSOB ---
ED Disposition Clinical Impression: COVID-19 Disposition: Home, Self-Care Condition on Discharge: Good Instructions: DI for COVID-19 (Suspected or Confirmed ) Additional Instructions: fluids and see pcp for follow up Prescriptions: dexAMETHasone [Decadron] 6 mg PO DAILY #6 tab Transmission Status: Pending to [id number] Referrals: Provider,Referral, [Primary Care Provider] - - Critical Care Critical Care Time: No Attestation: On 05/01/21, the high probability of a clinically significant, sudden or life threatening deterioration of the following system(s) required my full and direct attention, intervention and personal management. The time I documented below is in addition to time spent performing reported procedures but includes the following listed in this critical care notation. Medical Decision Making - Medical Records Medical records reviewed: Yes: I reviewed the patient's medical records. - Patricio Inquiry Pt receiving controlled substance: No Vital Signs: 05/01/21 20:53 Temperature 98.4 F Temperature Source Oral Pulse Rate [Left] 101 H Respiratory Rate 20 Blood Pressure [Right Arm] 121/77 Blood Pressure Mean [Right Arm] 91 02 Sat by Pulse Oximetry 96 Oxygen Delivery Method Room Air - Lab Data Lab results reviewed: Yes: I reviewed the patient's lab results. Orders (Tests/Meds): ED MEDICATIONS Generic Name Dose Route Start Last Admin Trade Name Freq PRN Reason Stop Dose Admin Sodium Chloride 1,000 mls @ 999 mls/hr 05/01/21 21:15 05/01/21 21:20 Sod Chlor 0.9% 1000ml Bag IV 05/01/21 22:15 999 mls/hr .Q1H1M RUTHIE Administration Discontinued Medications Generic Name Dose Route Start Last Admin Trade Name Freq PRN Reason Stop Dose Admin Albuterol/Ipratropium 2 puff 05/01/21 21:16 05/01/21 21:31 Combivent 20mcg/100mcg Respimat Inhaler IH 05/01/21 21:17 2 puff ONCE ONE Administration Dexamethasone Sodium Phosphate 10 mg 05/01/21 21:14 05/01/21 21:20 Dexamethasone 4mg/Ml 5ml Mdv IV 05/01/21 21:15 10 mg ONCE ONE Administration Medical Decision Narrative: stable exam and vital signs Resp/SOB HPI - General Chief Complaint: Shortness of Breath/Dyspnea Stated Complaint: covid +. SOB, lungs hurt Time Seen by Provider: 05/01/21 21:16 Mode of Arrival: Ambulatory Source of Information: Patient, Medical Record Limitations: No Limitations Description of Symptoms (Recalled from ER Triage Doc. by RN): pt diagnosed covid positive pt reports he cannot breathe when he lays down it feels like there is pressure in his chest - History of Present Illness recent covid-19 dx with feeling of sob worse with laying down - neg cta for pul emboli yesterday Complaint: shortness of breath Onset (ago): day(s) Context: recent illness Severity: moderate Known history of: diabetes Associated symptoms: denies other symptoms Treatment prior to arrival: none - Related Data Home oxygen amount: none Home Medications Medication Instructions Recorded Confirmed Amlodipine Besylate 5 mg PO DAILY 04/26/21 04/26/21 Metformin HCl 500 mg PO BID 04/26/21 04/26/21 Previous Rx's Medication Instructions Recorded Ondansetron [Zofran 4mg ODT] 4 mg PO Q8HP PRN #20 tab 04/26/21 glipiZIDE [Glucotrol 5mg tablet] 5 mg PO DAILY #14 tab 04/30/21 dexAMETHasone [Decadron] 6 mg PO DAILY #6 tab 05/01/21 Allergies Allergy/AdvReac Type Severity Reaction Status Date / Time aspirin [ASPIRIN] Allergy Mild Verified 06/05/20 09:30 codeine [CODEINE] Allergy Mild Verified 06/05/20 09:30 [facility] History - Hepatitis A Screen Drug use history?: No High risk sexual behaviors?: No History of sexually transmitted infection?: No 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orker?: No Do you have indoor plumbing?: Yes Do you have electricity?: Yes Attestation statement:: This patient has been screened for Hepatitis A risk factors. I have reviewed the patient'
[2021-05-01 22:12] VITALS: BP 145/85; PULSE 98; RESP 16; TEMP 36.9
== END 2021-05-01 22:25 | disposition home or self-care (01) ==
PROVIDERS: Emergency Provider Emergency Medicine
DX: U07.1 COVID-19 (principal); E11.9 Type 2 diabetes mellitus without complications
CPT/HCPCS: 96365; 96375; 99282

== ENCOUNTER 2021-05-03 08:44 | Outpatient (CLI) | payer BC, SELFPAY ==
[2021-05-03] VITALS (9 sets, daily range): BP systolic 116–138; BP diastolic 81–94; PULSE 88–94; RESP 16–18; TEMP 36.8–36.9; O2SAT 93–95
== END 2021-05-03 11:20 | disposition home or self-care (01) ==
LOC: INF 08:46
PROVIDERS: Visit Provider Emergency Medicine
DX: U07.1 COVID-19 (principal); Z23 Encounter for immunization
CPT/HCPCS: 96365

== ENCOUNTER 2021-05-08 09:07 | Emergency (ER) | payer BC, SELFPAY ==
[2021-05-08 09:10] VITALS: BP 125/84; PULSE 96; RESP 22; TEMP 36.6; O2SAT 94; BMI 29.5
--- NOTE | 2021-05-08 09:50 | HMH.EDUTC ---
[facility] Clinical Impression: Viral syndrome Disposition: Home, Self-Care Condition on Discharge: Good Instructions: How to Use an Incentive Spirometer, DI for COVID-19 (Suspected or Confirmed ), Preventing the Spread of Coronavirus Discharge Instructions Additional Instructions: Use the incentive spirometer to help your lungs as you was instructed in the [facility] Make sure that you are drinking plenty of fluids and Taking vitamins to help Return if needed Straight to ER if any life threatening symptoms Referrals: Provider,Referral, MD [Primary Care Provider] - Forms: Work/School Release Medical Decision Making - Patricio Inquiry Pt receiving controlled substance: No Patricio was queried for this patient: No Vital Signs: 05/08/21 09:10 05/08/21 10:07 Temperature 97.9 F 97.9 F Temperature Source Oral Pulse Rate 96 H Pulse Rate [Right Brachial] 96 H Respiratory Rate 22 22 Blood Pressure 125/84 Blood Pressure [Right Arm] 125/84 Blood Pressure Mean [Right Arm] 97 Blood Pressure Source [Right Arm] Automatic Cuff Blood Pressure Position [Right Arm] Sitting 02 Sat by Pulse Oximetry 94 L Oxygen Delivery Method Room Air Medical Decision Narrative: Discussed repeat xray with patient and he declined states that he was here for follow up visit for COVID and wanted to get his Short term paper filled out [facility] HPI - General Stated complaint: had PNA, hurting in lungs Time Seen by Provider: 05/08/21 09:50 Mode of Arrival: Ambulatory Source of Information: Patient Limitations: No Limitations Description of Symptoms (Recalled from Triage Doc. by RN): PATIENT REPORTS HE WAS DIAGNOSED WITH COVID 2 WEEKS AGO AND STATES HE ALSO DEVELOPED PNEUMONIA. HE C/O COUGH WITH CHEST PRESSURE AND SOA. HE STATES HE WANTS TO SEE IF HIS PNEUMONIA IS GETTING BETTER AND TO HAVE PAPERS FILLED OUT FOR WORK HEENT Symptoms (Recalled from RN notes): No Resp Symptoms (Recalled from RN notes): Yes Skin Symptoms (Recalled from RN notes): No MS Symptoms (Recalled from RN notes): No Functional Status (Recalled from RN notes): WNL - History of Present Illness Provider Complaint: Patient states he was dx with COVID on 04/26 States that then he came back in on 04/30 and had chest xray and CT and they told him he had COVID pneumonia and had the COVID infusion States that he is feeling better now and wanted to come back in and get checked to see where he is at with the COVID and get a check up because he doesnt have a PCP and was still feeling fatigued and winded at times plus get his papers filled out for his short term disability - Related Data Home Medications Medication Instructions Recorded Confirmed Amlodipine Besylate 5 mg PO DAILY 04/26/21 04/26/21 Metformin HCl 500 mg PO BID 04/26/21 04/26/21 Previous Rx's Medication Instructions Recorded Ondansetron [Zofran 4mg ODT] 4 mg PO Q8HP PRN #20 tab 04/26/21 glipiZIDE [Glucotrol 5mg tablet] 5 mg PO DAILY #14 tab 04/30/21 dexAMETHasone [Decadron] 6 mg PO DAILY #6 tab 05/01/21 Allergies Allergy/AdvReac Type Severity Reaction Status Date / Time aspirin [ASPIRIN] Allergy Mild Verified 06/05/20 09:30 codeine [CODEINE] Allergy Mild Verified 06/05/20 09:30 - Worker's Comp Is this a Worker's Comp case?: No [facility] History - Hepatitis A Screen Drug use history?: No High risk sexual behaviors?: No History of sexually transmitted infection?: No 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orker?: No Do you have indoor plumbing?: Yes Do you have electricity?: Yes Attestation statement:: This patient has been screened for Hepatitis A risk factors. I have reviewed the patient's past medical history: Yes Medical History: Reports:: Diabetes Mellitus Type 2 - Social History Smoking Status: Never smoker Tobacco Type: smokeless tobacco # Packs/Day (cigarettes): 0 Alcohol Intake: never Occupational Status: other Housing: house ROS Obtained: Yes All systems reviewed & no addition
[2021-05-08 10:07] VITALS: BP 125/84; PULSE 96; RESP 22; TEMP 36.6; O2SAT 94
--- NOTE | 2021-05-08 10:09 | PC.NURSE ---
PATIENT GIVEN AN INCENTIVE SPIROMETER AND EDUCATED ON USE
== END 2021-05-08 10:11 | disposition home or self-care (01) ==
PROVIDERS: Emergency Provider Nurse Practitioner
DX: B34.9 Viral infection, unspecified (principal); J12.82 Pneumonia due to coronavirus disease 2019; E11.9 Type 2 diabetes mellitus without complications; Z79.84 Long term (current) use of oral hypoglycemic drugs
CPT/HCPCS: 99202; G0463

== ENCOUNTER 2021-07-31 14:43 | Emergency (ER) | payer BC, SELFPAY ==
[2021-07-31 16:02] VITALS: BP 124/88; PULSE 101; RESP 19; TEMP 37; O2SAT 99; BMI 31.0
--- NOTE | 2021-07-31 16:13 | HMH.EDUTC ---
[facility] [place] Disposition Clinical Impression: Vomiting and diarrhea Disposition: Home, Self-Care Condition on Discharge: Good Instructions: Diarrhea, Nausea and Vomiting-Adult, Ondansetron Additional Instructions: Drink extra fluids with and between meals. If you have difficulty drinking, try very small amounts of water or suck on ice chips. ? Avoid fruit juices, as these do not replace minerals and can actually increase diarrhea. ? Children and adults can use sports drinks to replenish electrolytes. Younger children and infants should use products formulated for children, like oral rehydration solutions. ? Eat food in small amounts and let your stomach recover. ? Get lots of rest. You may feel tired or weak. ? No greasy or fried foods for the next 24-48 hours BRAT diet Bananas Rice Apples and Tom Bean ? Make sure to drink plenty of liquids ? Return if needed ? Straight to ER if any life threatening symptoms ? Zofran as prescribed ? You was given an outpatient order for diarrhea panel, please collect specimen and bring back to outpatient lab then call back to the [facility] or follow up with family doctor for results ? Follow up with family doctor in the next 48-72 hours if no improvement or any worsening of symptoms Prescriptions: Ondansetron [Zofran 4mg ODT] 4 mg PO TIDP PRN #20 tab PRN Reason: Vomiting Transmission Status: Pending to [id number] Referrals: Provider,Referral, MD [Primary Care Provider] - As needed Forms: Work/School Release Time of Disposition: 17:01 Medical Decision Making - Patricio Inquiry Pt receiving controlled substance: No Patricio was queried for this patient: No Vital Signs: 07/31/21 16:02 Temperature 98.6 F Temperature Source Oral Pulse Rate [Left] 101 H Respiratory Rate 19 Blood Pressure [Right Arm] 124/88 Blood Pressure Mean [Right Arm] 100 02 Sat by Pulse Oximetry 99 Orders (Tests/Meds): ED MEDICATIONS Discontinued Medications Generic Name Dose Route Start Last Admin Trade Name Freq PRN Reason Stop Dose Admin Ondansetron HCl 4 mg 07/31/21 16:17 07/31/21 16:24 Ondansetron 4mg Odt SL 07/31/21 16:18 4 mg ONCE ONE Administration Medical Decision Narrative: After zofran patient able to drink water and keep it down [facility] [place] HPI - General Stated complaint: vomiting,diarrhea Time Seen by Provider: 07/31/21 16:13 Mode of Arrival: Ambulatory Source of Information: Patient Limitations: No Limitations Description of Symptoms (Recalled from Triage Doc. by RN): PT STATES HE HAS HAD N/V/D SINCE 299. HEENT Symptoms (Recalled from RN notes): No Resp Symptoms (Recalled from RN notes): No Skin Symptoms (Recalled from RN notes): No MS Symptoms (Recalled from RN notes): No Functional Status (Recalled from RN notes): WNL - History of Present Illness Provider Complaint: Patient states that he started this morning around 3am with vomiting and diarrhea States that he has been trying to drink today but has been vomiting anytime he tries to eat something so he came in to get it checked - Related Data Home Medications Medication Instructions Recorded Confirmed Amlodipine Besylate 5 mg PO DAILY 04/26/21 04/26/21 Metformin HCl 500 mg PO BID 04/26/21 04/26/21 Previous Rx's Medication Instructions Recorded Ondansetron [Zofran 4mg ODT] 4 mg PO Q8HP PRN #20 tab 04/26/21 glipiZIDE [Glucotrol 5mg tablet] 5 mg PO DAILY #14 tab 04/30/21 dexAMETHasone [Decadron] 6 mg PO DAILY #6 tab 05/01/21 Ondansetron [Zofran 4mg ODT] 4 mg PO TIDP PRN #20 tab 07/31/21 Allergies Allergy/AdvReac Type Severity Reaction Status Date / Time aspirin [ASPIRIN] Allergy Mild Verified 06/05/20 09:30 codeine [CODEINE] Allergy Mild Verified 06/05/20 09:30 - Worker's Comp Is this a Worker's Comp case?: No [facility] History - Hepatitis A Screen Drug use history?: No High risk sexual behaviors?: No History of sexually transmitted infection?: No 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
[2021-07-31 17:07] VITALS: BP 124/88; PULSE 101; RESP 19; TEMP 37
== END 2021-07-31 17:08 | disposition home or self-care (01) ==
PROVIDERS: Emergency Provider Nurse Practitioner
DX: R11.10 Vomiting, unspecified (principal); R19.7 Diarrhea, unspecified
CPT/HCPCS: 99212; G0463

== ENCOUNTER 2022-03-02 11:45 | Emergency (ER) | payer BC, SELFPAY ==
[2022-03-02 12:00] VITALS: BP 152/90; PULSE 70; RESP 20; TEMP 36.4; O2SAT 97; BMI 27.2
--- NOTE | 2022-03-02 12:20 | EXP.UTC ---
Discharge Plan Disposition Patient Disposition: Home, Self-Care Condition: Good Prescriptions Prescriptions: New ondansetron HCl 4 mg tablet 4 mg PO Q8H PRN (Reason: nausea and vomiting) Qty: 12 0RF No Action dexamethasone 6 MG tablet 6 mg PO DAILY Qty: 6 0RF ondansetron 4 MG tablet,disintegrating 4 mg PO TIDP PRN (Reason: Vomiting) Qty: 20 0RF metformin 500 MG tablet 500 mg PO BID amlodipine 5 MG tablet 5 mg PO DAILY ondansetron 4 MG tablet,disintegrating 4 mg PO Q8HP PRN (Reason: Nausea) Qty: 20 0RF glipizide 5 MG tablet 5 mg PO DAILY Qty: 14 0RF Referrals Follow up/Referrals: Provider,Referral, MD [Primary Care Provider] - See instructions Activity Restrictions/Add. Instructions Additional Instructions/Restrictions: Drink extra fluids with and between meals. If you have difficulty drinking, try very small amounts of water or suck on ice chips. ? Avoid fruit juices, as these do not replace minerals and can actually increase diarrhea. ? Children and adults can use sports drinks to replenish electrolytes. Younger children and infants should use products formulated for children, like oral rehydration solutions. ? Eat food in small amounts and let your stomach recover. ? Get lots of rest. You may feel tired or weak. ? No greasy or fried foods for the next 24-48 hours BRAT diet Bananas Rice Apples and [place] ? Make sure to drink plenty of liquids ? Return if needed ? Straight to ER if any life threatening symptoms ? Zofran as prescribed ? You was given an outpatient order for diarrhea panel, please collect specimen and bring back to outpatient lab then call back to the [facility] or follow up with family doctor for results ? Follow up with family doctor in the next 48-72 hours if no improvement or any worsening of symptoms Clinical Impressions Clinical Impression: Viral syndrome Stand Alone Forms Stand Alone Forms: Work/School Release Discharge ED Provider: [place]idro [facility] [place] General Stated complaint: BA, REYNOSO, Vomitting Mode of Arrival: Ambulatory Source of Information: Patient Limitations: No Limitations Time Seen by Provider: 03/02/22 12:20 Description of Symptoms (Recalled from Triage Doc. by RN): PATIENT C/O BODY ACHES, VOMITING AND DIARRHEA X 2 DAYS HEENT Symptoms (Recalled from RN notes): No Resp Symptoms (Recalled from RN notes): No Skin Symptoms (Recalled from RN notes): No MS Symptoms (Recalled from RN notes): No Functional Status (Recalled from RN notes): WNL History of Present Illness Provider Complaint: Patient states that he hasnt felt well for the last couple of days States that he has been having body aches, chills, N/V but the vomiting has now stopped and diarrhea States that he feels like he did when he had COVID before States that today he was not feeling any better so he came in to get checked out Related Data Home Medications Medication Instructions Recorded Confirmed amlodipine 5 mg tablet 5 mg PO DAILY Hypertension 04/26/21 04/26/21 metformin 500 mg tablet 500 mg PO BID Diabetes 04/26/21 04/26/21 Previous Rx's Medication Instructions Recorded ondansetron 4 mg disintegrating 4 mg PO Q8HP PRN Nausea #20 tabs 04/26/21 tablet glipizide 5 mg tablet 5 mg PO DAILY #14 tabs 04/30/21 dexamethasone 6 mg tablet 6 mg PO DAILY #6 tabs 05/01/21 ondansetron 4 mg disintegrating 4 mg PO TIDP PRN Vomiting #20 tabs 07/31/21 tablet ondansetron HCl 4 mg tablet 4 mg PO Q8H PRN nausea and 03/02/22 vomiting #12 tabs Allergies Allergy/AdvReac Type Severity Reaction Status Date / Time aspirin [ASPIRIN] Allergy Mild Verified 06/05/20 09:30 codeine [CODEINE] Allergy Mild Verified 06/05/20 09:30 Worker's Comp Is this a Worker's Comp case?: No [facility] Medical History (Updated 03/02/22 @ 13:11 by Judy Isidro APRN) Diabetes mellitus, type 2 Hyperlipidemia Hype
[2022-03-02 12:33] LABS: UTC Influenza A Antigen Negative (Negative); UTC Influenza B Antigen Negative (Negative)
[2022-03-02 12:49] LABS: Adenovirus,PCR Not Detected (NotDetected); Bordetella Pertussis Not Detected (NotDetected); Chlamydophila Pneumoniae, PCR Not Detected (NotDetected); Coronavirus 19, PCR Not Detected (NotDetected); Coronavirus 229E Not Detected (NotDetected); Coronavirus NL63 Not Detected (NotDetected); Coronavirus OC43 Not Detected (NotDetected); Coronovirus HKU1,PCR Not Detected (NotDetected); Human Metapneumovirus Not Detected (NotDetected); Influenza A, PCR Not Detected (NotDetected); Influenza AH1, 2009 Not Detected (NotDetected); Influenza AH1, PCR Not Detected (NotDetected); Influenza AH3,PCR Not Detected (NotDetected); Influenza B, PCR Not Detected (NotDetected); Mycoplasma Pneumoniae, PCR Not Detected (NotDetected); Parainfluenza 1, PCR Not Detected (NotDetected); Parainfluenza 2, PCR Not Detected (NotDetected); Parainfluenza 3, PCR Not Detected (NotDetected); Parainfluenza 4, PCR Not Detected (NotDetected); Respiratory Syncytial Virus Not Detected (NotDetected); Rhinovirus/Enterovirus Not Detected (NotDetected)
[2022-03-02 12:54] LABS: UTC Strep Screen (Rapid) Negative (Negative)
[2022-03-02 13:13] VITALS: BP 152/90; PULSE 70; RESP 20; TEMP 36.4; O2SAT 97
== END 2022-03-02 13:17 | disposition home or self-care (01) ==
PROVIDERS: Emergency Provider Nurse Practitioner
DX: B34.9 Viral infection, unspecified (principal); R19.7 Diarrhea, unspecified; M79.10 Myalgia, unspecified site; R11.2 Nausea with vomiting, unspecified; R51.9 Headache, unspecified; Z20.822 Contact with and (suspected) exposure to COVID-19; I10 Essential (primary) hypertension; E78.5 Hyperlipidemia, unspecified; E11.9 Type 2 diabetes mellitus without complications; Z79.1 Long term (current) use of non-steroidal anti-inflammatories (NSAID); Z79.84 Long term (current) use of oral hypoglycemic drugs; Z79.899 Other long term (current) drug therapy; Z88.5 Allergy status to narcotic agent; Z88.6 Allergy status to analgesic agent
CPT/HCPCS: 87581; 87632; 87798; 87804; 87880; 99213; C9803; G0463; U0003; U0005

== ENCOUNTER 2022-03-04 13:29 | Emergency (ER) | payer BC, SELFPAY ==
--- NOTE | 2022-03-04 14:08 | EXP.UTC ---
Discharge Plan Disposition Patient Disposition: Home, Self-Care Condition: Good Prescriptions Prescriptions: New benzonatate [benzonatate] 100 mg capsule 100 mg PO TIDP PRN (Reason: Cough) Qty: 30 0RF naproxen 500 mg tablet 500 mg PO BID PRN (Reason: pain) Qty: 30 0RF No Action dexamethasone 6 MG tablet 6 mg PO DAILY Qty: 6 0RF ondansetron 4 MG tablet,disintegrating 4 mg PO TIDP PRN (Reason: Vomiting) Qty: 20 0RF ondansetron HCl 4 mg tablet 4 mg PO Q8H PRN (Reason: nausea and vomiting) Qty: 12 0RF metformin 500 MG tablet 500 mg PO BID amlodipine 5 MG tablet 5 mg PO DAILY ondansetron 4 MG tablet,disintegrating 4 mg PO Q8HP PRN (Reason: Nausea) Qty: 20 0RF glipizide 5 MG tablet 5 mg PO DAILY Qty: 14 0RF Referrals Follow up/Referrals: Provider,Referral, MD [Primary Care Provider] - See instructions Activity Restrictions/Add. Instructions Additional Instructions/Restrictions: Go home and rest. It would be best if you rested tomorrow too. No heavy lifting. No twisting. Take the medications as directed, unless you are alleric to naproxen. Follow up with your regular doctor. GO TO THE ER FOR ANY WORSENING SYMPTOMS OR CONCERN, ESPECIALLY BOWEL OR BLADDER ISSUES, SADDLE AREA NUMBNESS, FEVER, ETC Clinical Impressions Clinical Impression: Rib pain on left side, Acute pain of right shoulder, Contusion of rib on left side Stand Alone Forms Stand Alone Forms: Work/School Release Instructions Patient Instructions: DI for Rib Contusion Discharge ED Provider: Eloy Keith [facility] General Stated complaint: LT side rib pain from cough, radiating neck pain Time Seen by Provider: 03/04/22 14:08 History of Present Illness Provider Complaint: he states that earlier today he was at work when he had a coughing spell. He began having left lower rib pain since this. He states that the dust at his work caused him to have this coughing spell. He denies any fever, chills, congestion, or other complaints. Related Data Home Medications Medication Instructions Recorded Confirmed amlodipine 5 mg tablet 5 mg PO DAILY Hypertension 04/26/21 04/26/21 metformin 500 mg tablet 500 mg PO BID Diabetes 04/26/21 04/26/21 Previous Rx's Medication Instructions Recorded ondansetron 4 mg disintegrating 4 mg PO Q8HP PRN Nausea #20 tabs 04/26/21 tablet glipizide 5 mg tablet 5 mg PO DAILY #14 tabs 04/30/21 dexamethasone 6 mg tablet 6 mg PO DAILY #6 tabs 05/01/21 ondansetron 4 mg disintegrating 4 mg PO TIDP PRN Vomiting #20 tabs 07/31/21 tablet ondansetron HCl 4 mg tablet 4 mg PO Q8H PRN nausea and 03/02/22 vomiting #12 tabs benzonatate 100 mg capsule 100 mg PO TIDP PRN Cough #30 caps 03/04/22 naproxen 500 mg tablet 500 mg PO BID PRN pain #30 tabs 03/04/22 Allergies Allergy/AdvReac Type Severity Reaction Status Date / Time aspirin [ASPIRIN] Allergy Mild Verified 03/04/22 14:15 codeine [CODEINE] Allergy Mild Verified 03/04/22 14:15 [facility] Medical History Diabetes mellitus, type 2 Hyperlipidemia Hypertension Social History Smoking Status: Never smoker alcohol intake: never current occupational status: employed Travel in the last 8 weeks: None housing: house ROS Obtained: Yes All systems reviewed & no additional complaints except as documented Constitutional Constitutional: Denies chills and Denies fever(s) Eyes Eyes: Denies eye discharge ENT Ears, Nose, Mouth, and Throat: Denies dizziness, Denies otalgia and Denies sore throat Cardiovascular Cardiovascular: Denies chest pain Respiratory Respiratory: Denies shortness of breath, Denies chest congestion, Denies cough, Denies stridor and Denies wheezing Gastrointestinal Gastrointestingal: Denies nausea or vomiting Musculoskeletal Musculoskeletal: Reports system reviewed and no additio
--- NOTE | 2022-03-04 14:09 | XR_ITS ---
FINAL REPORT CLINICAL HISTORY: pain FINDINGS: Multiple views of the left ribs were obtained. There is mild irregularity of the distal left 9th rib worrisome for a fracture. There is a probable chronic fracture of the left 5th distal rib. The visualized lungs are clear. No pneumothorax is identified. IMPRESSION: Mild irregularity of the distal left 9th rib worrisome for fracture. No pneumothorax. Reviewed, Interpreted and Dictated by Layo Howard III, MD Transcribed by David Dobbs Authenticated and [facility]
[2022-03-04 14:11] VITALS: BP 128/81; PULSE 92; RESP 16; TEMP 36.5; O2SAT 97; BMI 33.2
--- NOTE | 2022-03-04 14:13 | XR_ITS ---
FINAL REPORT CLINICAL HISTORY: injury. right shoulder pain FINDINGS: RIGHT SHOULDER: 3 views of the right shoulder were obtained. There is no acute fracture or dislocation. There are mild degenerative changes of the acromioclavicular and the glenohumeral joints. There is a small calcification inferior to the glenoid. IMPRESSION: No acute fracture Reviewed, Interpreted and Dictated by Layo Howard III, MD Transcribed by David Dobbs Authenticated and [facility]
[2022-03-04 14:49] VITALS: BP 128/81; PULSE 92; RESP 16; TEMP 36.5
== END 2022-03-04 14:52 | disposition home or self-care (01) ==
PROVIDERS: Emergency Provider Nurse Practitioner Family
DX: S20.212A Contusion of left front wall of thorax, initial encounter (principal); M54.2 Cervicalgia; M25.511 Pain in right shoulder; R05.9 Cough, unspecified; R11.2 Nausea with vomiting, unspecified; I10 Essential (primary) hypertension; E78.5 Hyperlipidemia, unspecified; E11.9 Type 2 diabetes mellitus without complications; Z79.84 Long term (current) use of oral hypoglycemic drugs; Z79.899 Other long term (current) drug therapy; Z88.5 Allergy status to narcotic agent; Z88.6 Allergy status to analgesic agent; Z87.891 Personal history of nicotine dependence
CPT/HCPCS: 71101; 73030; 99213; G0463

== ENCOUNTER 2022-03-09 19:45 | Emergency (ER) | payer BC, SELFPAY ==
[2022-03-09 19:47] VITALS: BP 189/115; PULSE 80; RESP 18; TEMP 36.4; O2SAT 97; BMI 34.7
--- NOTE | 2022-03-09 20:13 | ECG_ITS ---
APPROVED REPORT Exam: Resting ECG HR:77 bpm ECG Measurements Heart Rate 77 AXES NC 171 P 63 QRSd 92 QRS 40 QT 354 T 17 QTc 386 Conclusion SINUS RHYTHM NONSPECIFIC T-WAVE ABNORMALITY BORDERLINE ECG UNCONFIRMED REPORT Electronically signed by : Jhon Sutton MD 03/10/2022 16:38:49
--- NOTE | 2022-03-09 20:17 | XR_ITS ---
PROCEDURE INFORMATION: Exam: XR Chest Exam date and time: 03/09/2022 8:33 PM Age: 51 years old Clinical indication: Cough; Sternal or substernal pain; Additional info: Pain, cough TECHNIQUE: Imaging protocol: Radiologic exam of the chest. Views: 1 view. COMPARISON: CR XR RIBS LT MIN 3V W CXR1V 03/04/2022 2:15 PM FINDINGS: Lungs: Unremarkable. No consolidation. Artifact is superimposed upon the lung apices. Pleural spaces: Unremarkable. No pleural effusion. No pneumothorax. Heart/Mediastinum: Unremarkable. No cardiomegaly. Bones/joints: Unremarkable. IMPRESSION: No acute findings.
--- NOTE | 2022-03-09 20:22 | PC.NURSE ---
RAD at for CXR
--- NOTE | 2022-03-09 20:25 | HMH.EDGENADL ---
Discharge Plan Disposition Patient Disposition: Home, Self-Care Condition: Good Prescriptions Prescriptions: New methocarbamol 500 mg tablet 500 mg PO Q8H PRN (Reason: muscle spasm) Qty: 14 0RF No Action dexamethasone 6 MG tablet 6 mg PO DAILY Qty: 6 0RF ondansetron 4 MG tablet,disintegrating 4 mg PO TIDP PRN (Reason: Vomiting) Qty: 20 0RF ondansetron HCl 4 mg tablet 4 mg PO Q8H PRN (Reason: nausea and vomiting) Qty: 12 0RF benzonatate [benzonatate] 100 mg capsule 100 mg PO TIDP PRN (Reason: Cough) Qty: 30 0RF naproxen 500 mg tablet 500 mg PO BID PRN (Reason: pain) Qty: 30 0RF metformin 500 MG tablet 500 mg PO BID amlodipine 5 MG tablet 5 mg PO DAILY ondansetron 4 MG tablet,disintegrating 4 mg PO Q8HP PRN (Reason: Nausea) Qty: 20 0RF glipizide 5 MG tablet 5 mg PO DAILY Qty: 14 0RF Referrals Follow up/Referrals: Provider,Referral, MD [Primary Care Provider] - See instructions Activity Restrictions/Add. Instructions Additional Instructions/Restrictions: You have been evaluated for left-sided rib pain. Likely due to a rib being out of place. Please take anti-inflammatory medication like naproxen or ibuprofen. Take Robaxin as needed for muscle spasm. Follow-up with your primary care doctor in 1 to 2 days for symptom recheck. Return to the emergency department at once for any new or worsening symptoms, pain, difficulty breathing, other concerns Clinical Impressions Clinical Impression: Rib pain on left side, Rib cage dysfunction Stand Alone Forms Stand Alone Forms: Work/School Release Instructions Patient Instructions: DI for Rib Contusion, DI for Musculoskeletal Pain Discharge ED Provider: Lakshmi Long Adult HPI General Chief complaint: PAIN Stated complaint: ao 03/04 rib injured, pain Time Seen by Provider: 03/09/22 20:07 Mode of Arrival: Ambulatory Source of Information: Patient Limitations: No Limitations Description of Symptoms (Recalled from ER Triage Doc. by RN): Pt states that he had a cough on 03/04 and felt a pop in his left ribs. States that he went to the [facility] and had an xray and was diagnosed with injured cartilage. Says that the pain has continued since then but now he feels a heaviness in his lungs and feels like he is wearing a backpack . History of Present Illness HPI narrative: 51-year-old male presenting to the emergency department with left-sided rib pain. Pain started on March 04, 5 days ago. He had a coughing fit and felt a pop on the left side of his chest. Pain was sharp, intense. It is now persistent, worse with motion and when taking a deep breath. He was evaluated urgent treatment where x-ray showed no fracture. He was started on naproxen. He continues to have a dry cough. Nonproductive. Denies recent exertional chest pain. Pain does not radiate to the jaw, arm, back. No associated nausea or diaphoresis. After COVID, was told he had a few spots on his lungs. Denies history of lung cancer, COPD, emphysema, CAD. Related Data Home Medications Medication Instructions Recorded Confirmed amlodipine 5 mg tablet 5 mg PO DAILY Hypertension 04/26/21 04/26/21 metformin 500 mg tablet 500 mg PO BID Diabetes 04/26/21 04/26/21 Previous Rx's Medication Instructions Recorded ondansetron 4 mg disintegrating 4 mg PO Q8HP PRN Nausea #20 tabs 04/26/21 tablet glipizide 5 mg tablet 5 mg PO DAILY #14 tabs 04/30/21 dexamethasone 6 mg tablet 6 mg PO DAILY #6 tabs 05/01/21 ondansetron 4 mg disintegrating 4 mg PO TIDP PRN Vomiting #20 tabs 07/31/21 tablet ondansetron HCl 4 mg tablet 4 mg PO Q8H PRN nausea and 03/02/22 vomiting #12 tabs benzonatate 100 mg capsule 100 mg PO TIDP PRN Cough #30 caps 03/04/22 naproxen 500 mg tablet 500 mg PO BID PRN pain #30 tabs 03/04/22 methocarbamol 500 mg tablet 500 mg PO Q8H PRN muscle spasm #14 03/09/22 tabs Allergies Allergy/AdvReac Type Severity Reaction Status Date /
[2022-03-09 20:44] LABS: Basophils # 0.1 K/mm3 (0-0.2); Basophils % 1.7 % (0.1-2.0); Eosinophils # 0.2 K/mm3 (0.0-0.4); Eosinophils % 2.7 % (0.1-12.0); Hematocrit 50.5 % (42.0-52.0); Hemoglobin 16.4 g/dL (14.1-18.0); Lymphocytes # 2.1 K/mm3 (0.7-4.5); Lymphocytes % 37.3 % (10-50); Mean Corpuscular HGB Conc 32.4 g/dL (31.8-35.4); Mean Corpuscular Hemoglobin 30.5 pg (27.0-31.2); Mean Platelet Volume 7.6 fl (7.4-10.4); Monocytes # 0.5 K/mm3 (0.1-1.0); Monocytes % 8.8 % (1.7-9.3); Neutrophils # 2.7 K/mm3 (1.8-7.8); Neutrophils % 49.5 % (37.0-80.0); Platelet Count 207 K/mm3 (142-424); Red Blood Count 5.37 M/mm3 (4.60-6.20); White Blood Count 5.5 K/mm3 (4.8-10.8)
[2022-03-09 20:50] LABS: Chloride 97 mmol/L (98-107); Sodium 135 mmol/L (136-145)
[2022-03-09 20:51] LABS: Potassium 4.2 mmoL/L (3.5-5.1)
[2022-03-09 20:53] LABS: Alanine Aminotransferase 28 U/L (12-78); Albumin Level 4.5 g/dl (3.5-5.0); Albumin/Globulin Ratio 1.5 (1.1-1.8); Alkaline Phosphatase 133 U/L (38-126); Anion Gap 15.2 mEq/L (5-15); Aspartate Amino Transferase 35 U/L (17-59); Bilirubin,Total 0.6 mg/dl (0.2-1.3); Blood Urea Nitrogen 14 mg/dl (9-20); Carbon Dioxide 27 mmol/L (22.0-30.0); Creatinine Clearance Estimated 163 mL/min (50-200); Estimated Glomerular Filt Rate 102 ml/min (>60); GFR (African American) 123 ML/MIN (>60); Total Protein,Serum 7.5 g/dl (6.3-8.2)
[2022-03-09 20:54] LABS: Calcium 8.9 mg/dl (8.4-10.2); Glucose 302 mg/dl (74-100)
[2022-03-09 21:02] LABS: D-Dimer 0.55 ug/mL (0.0-0.5)
[2022-03-09 21:07] LABS: Troponin I < 0.01 ng/ml (0.00-0.034)
--- NOTE | 2022-03-09 21:13 | CT_ITS ---
PROCEDURE INFORMATION: Exam: CTA Chest With Contrast Exam date and time: 03/09/2022 9:19 PM Age: 51 years old Clinical indication: Pain; On breathing; Additional info: Pain with inspiration, elevated d-dimer d dimer = 0.55 TECHNIQUE: Imaging protocol: Computed tomographic angiography of the chest with contrast. 3D rendering (Not supervised by radiologist): MIP and/or 3D reconstructed images were created by the technologist. Radiation optimization: All CT scans at this facility use at least one of these dose optimization techniques: automated exposure control; mA and/or kV adjustment per patient size (includes targeted exams where dose is matched to clinical indication); or iterative reconstruction. Contrast material: ISOVUE 370; Contrast volume: 70 ml; Contrast route: INTRAVENOUS (IV); COMPARISON: CT ANGIO CHEST PE PROTOCOL 04/30/2021 2:27 PM FINDINGS: Limitations: Motion artifact - mild. Pulmonary arteries: No definite pulmonary embolism. Aorta: Unremarkable. No aneurysm. Lungs: No consolidation. 0.5 cm RIGHT middle lobe nodule. Pleural spaces: No significant pleural effusion. No pneumothorax. Heart: No cardiomegaly. Mild coronary artery calcifications. No significant pericardial effusion. Lymph nodes: No pathologically enlarged lymph nodes. Liver: Fatty infiltration. Bones/joints: Mild wedging lower thoracic vertebral bodies, chronic. Soft tissues: Unremarkable. IMPRESSION: 1. No definite CT evidence of pulmonary embolism. 2. Pulmonary nodules. For patients at low risk (minimal or absent history of smoking and of other known risk factors), no routine follow-up is indicated. For patients at high risk (history of smoking or of other known risk factors), consider optional CT at 12 months. (jennifer Hernandez al., Fleischner Society, 2017)
--- NOTE | 2022-03-09 21:53 | PC.NURSE ---
Pt complains of severe pain. RN notified.
[2022-03-09 22:15] VITALS: BP 153/77; PULSE 78; RESP 16; TEMP 36.8; O2SAT 98
--- NOTE | 2022-03-09 22:49 | PC.NURSE ---
pt given a list of providers and reviewed family medicine/internal medicine open physicians.
== END 2022-03-09 22:51 | disposition home or self-care (01) ==
PROVIDERS: Emergency Provider Emergency Medicine
DX: R07.81 Pleurodynia (principal); M99.08 Segmental and somatic dysfunction of rib cage; Z88.6 Allergy status to analgesic agent; E11.9 Type 2 diabetes mellitus without complications; I10 Essential (primary) hypertension
CPT/HCPCS: 71045; 71275; 80053; 84484; 85025; 85378; 93005; 96374; 99285; Q9967

== ENCOUNTER 2022-08-15 12:29 | Emergency (ER) | payer BC, SELFPAY ==
[2022-08-15 12:30] VITALS: BP 144/110; PULSE 105; RESP 22; TEMP 36.6; O2SAT 98; BMI 25.7
--- NOTE | 2022-08-15 12:44 | EXP.UTC ---
Discharge Plan Disposition Patient Disposition: Home, Self-Care Condition: Good Prescriptions Prescriptions: New benzonatate 100 mg capsule 100 mg PO TID PRN (Reason: cough) Qty: 30 0RF amoxicillin-pot clavulanate 875-125 mg Tablet 1 tab PO Q12H Qty: 20 0RF fluticasone propionate [Flonase Allergy Relief] 50 mcg/actuation spray,suspension 1 - 2 spray intranasal DAILY Qty: 16 0RF Rx Instructions: administer into each nostril Referrals Follow up/Referrals: Provider,Referral, MD [Primary Care Provider] - See instructions Activity Restrictions/Add. Instructions Additional Instructions/Restrictions: *Monitor Temp, Over the counter Motrin or Tylenol as directed/as needed Tylenol every 4 hours and Motrin every 6 hours (as long as your family doctor has told you that you can take it) for fever or pain. and straight to ER if unable to lower temp less than 101.0 after medication given *Warm salt water gargles may help to soothe the throat *Throat Lozenges? *Warm fluids like tea with honey may help to soothe the throat? *Sleep elevated *Humidifier/Vaporizer Take medication as prescribed Follow up IMMEDIATELY for new or worsening symptoms or no Noticeable improvement over the next 48-72 hours. 911 for difficulty breathing or swallowing Clinical Impressions Clinical Impression: Bronchitis Sinusitis Qualifiers: Sinusitis location: unspecified location Chronicity: unspecified Qualified Code(s): J32.9 - Chronic sinusitis, unspecified Stand Alone Forms Stand Alone Forms: Work/School Release Instructions Patient Instructions: Sinusitis, DI for Sinusitis Discharge ED Provider: Judy Isidro [facility] [place] HPI General Stated complaint: achey, cough,headache,congested Mode of Arrival: Ambulatory Source of Information: Patient Limitations: No Limitations Time Seen by Provider: 08/15/22 12:44 Description of Symptoms (Recalled from Triage Doc. by RN): PATIENT C/O SINUS PRESSURE, DRAINAGE, AND PRODUCTIVE COUGH THAT STARTED LAST THURSDAY. HEENT Symptoms (Recalled from RN notes): Yes Resp Symptoms (Recalled from RN notes): Yes Skin Symptoms (Recalled from RN notes): No MS Symptoms (Recalled from RN notes): No Functional Status (Recalled from RN notes): WNL History of Present Illness Provider Complaint: Patient states that he has not been feeling well for about a week or so States that he has been having sinus pain and pressure, drainage in the back of his throat, and at times coughing up the mucous States that today he wasnt feeling any better so he came in to get checked Related Data Previous Rx's Medication Instructions Recorded amoxicillin 875 mg-potassium 1 tab PO Q12H #20 tabs 08/15/22 clavulanate 125 mg tablet benzonatate 100 mg capsule 100 mg PO TID PRN cough #30 caps 08/15/22 fluticasone propionate 50 1 - 2 spray intranasal DAILY #16 08/15/22 mcg/actuation nasal grams spray,suspension (Flonase Allergy Relief) Allergies Allergy/AdvReac Type Severity Reaction Status Date / Time aspirin [ASPIRIN] Allergy Mild Verified 03/04/22 14:15 codeine [CODEINE] Allergy Mild Verified 03/04/22 14:15 Worker's Comp Is this a Worker's Comp case?: No [facility] Disclaimer: The information contained in this section may have been updated after the patient was seen, as this information can be updated by other users. Medical History Diabetes mellitus, type 2 Hyperlipidemia Hypertension Social History Smoking Status: Former smoker alcohol intake: never current occupational status: employed Travel in the last 8 weeks: None housing: house ROS Obtained: Yes All systems reviewed & no additional complaints except as documented and Yes Systems reviewed as appropriate & no additional complaints except as documented ENT Ears, Nose, Mouth, and Throat: Reports system reviewed
[2022-08-15 12:53] LABS: UTC Influenza A Antigen Negative (Negative)
[2022-08-15 12:54] VITALS: BP 144/110; PULSE 105; RESP 22; TEMP 36.6; O2SAT 98
[2022-08-15 12:54] LABS: UTC Influenza B Antigen Negative (Negative)
== END 2022-08-15 13:03 | disposition home or self-care (01) ==
PROVIDERS: Emergency Provider Nurse Practitioner
DX: J20.9 Acute bronchitis, unspecified (principal); J01.90 Acute sinusitis, unspecified; E11.9 Type 2 diabetes mellitus without complications; I10 Essential (primary) hypertension
CPT/HCPCS: 87804; 99212; 99214; G0463

== ENCOUNTER 2022-12-15 15:28 | Emergency (ER) | payer BC, SELFPAY ==
[2022-12-15 15:45] VITALS: BP 131/86; PULSE 112; RESP 18; TEMP 37.1; O2SAT 99; BMI 25.8
--- NOTE | 2022-12-15 16:03 | EXP.UTC ---
Discharge Plan Disposition Patient Disposition: Home, Self-Care Condition: Good Referrals Follow up/Referrals: Provider,Referral, MD [Primary Care Provider] - See instructions Activity Restrictions/Add. Instructions Additional Instructions/Restrictions: *Monitor Temp, Over the counter Motrin or Tylenol as directed/as needed Tylenol every 4 hours and Motrin every 6 hours (as long as your family doctor has told you that you can take it) for fever or pain. and straight to ER if unable to lower temp less than 101.0 after medication given *Warm salt water gargles may help to soothe the throat *Throat Lozenges? *Warm fluids like tea with honey may help to soothe the throat? *Sleep elevated *Humidifier/Vaporizer Follow up IMMEDIATELY for new or worsening symptoms or no Noticeable improvement over the next 48-72 hours. 911 for difficulty breathing or swallowing You were tested for today for ?Upper Respiratory Panel with COVID19 your test result should be back in the next 24 You may check your results on the [facility] [employer] Portal Clinical Impressions Clinical Impression: Viral syndrome Stand Alone Forms Stand Alone Forms: Work/School Release Instructions Patient Instructions: COVID-19 Viral Test, DI for COVID-19 (Suspected or Confirmed ), DI for Viral Syndrome Discharge ED Provider: Judy Isidro [facility] [place] General Stated complaint: covid exposure Mode of Arrival: Ambulatory Source of Information: Patient Limitations: No Limitations Time Seen by Provider: 12/15/22 16:00 Description of Symptoms (Recalled from Triage Doc. by RN): PATIENT C/O COUGH, BODY ACHES, FEVER X 2 DAYS. RECENTLY EXPOSED TO COVID HEENT Symptoms (Recalled from RN notes): No Resp Symptoms (Recalled from RN notes): Yes Skin Symptoms (Recalled from RN notes): No MS Symptoms (Recalled from RN notes): No Functional Status (Recalled from RN notes): WNL History of Present Illness Provider Complaint: Patient states that for the last couple of days he has been having fever, chills, body aches, nasal congestion and cough States that he has been camping with his daughter and she tested positive for COVID earlier today so he came in to get checked Related Data Allergies Allergy/AdvReac Type Severity Reaction Status Date / Time aspirin [ASPIRIN] Allergy Mild Verified 03/04/22 14:15 codeine [CODEINE] Allergy Mild Verified 03/04/22 14:15 Worker's Comp Is this a Worker's Comp case?: No [facility] Disclaimer: The information contained in this section may have been updated after the patient was seen, as this information can be updated by other users. Medical History Diabetes mellitus, type 2 Hyperlipidemia Hypertension Social History Smoking Status: Former smoker alcohol intake: never current occupational status: employed Travel in the last 8 weeks: None housing: house ROS Obtained: Yes All systems reviewed & no additional complaints except as documented and Yes Systems reviewed as appropriate & no additional complaints except as documented Constitutional Constitutional: Reports system reviewed and no additional complaints, except as documented, Reports as per HPI, Reports body ache, Reports chills and Reports headache(s) ENT Ears, Nose, Mouth, and Throat: Reports system reviewed and no additional complaints, except as documented, Reports as per HPI, Reports headache(s), Reports nasal congestion and Reports nasal discharge Cardiovascular Cardiovascular: Reports system reviewed and no additional complaints, except as documented and Reports as per HPI Respiratory Respiratory: Reports system reviewed and no additional complaints, except as documented, Reports as per HPI, Denies shortness of breath, Denies chest congestion and Reports cough Gastrointestinal Gastrointestingal: Reports system reviewed and no additi
[2022-12-15 16:07] VITALS: BP 131/86; PULSE 112; RESP 18; TEMP 37.1; O2SAT 99
== END 2022-12-15 16:10 | disposition home or self-care (01) ==
PROVIDERS: Emergency Provider Nurse Practitioner
DX: U07.1 COVID-19 (principal); R50.9 Fever, unspecified; E11.9 Type 2 diabetes mellitus without complications; I10 Essential (primary) hypertension; E78.5 Hyperlipidemia, unspecified; Z87.891 Personal history of nicotine dependence
CPT/HCPCS: 99212; 99213; G0463

== ENCOUNTER → 2023-02-12 23:21 | Outpatient (CLI) | payer BC, SELFPAY ==
[2023-02-12 18:14] LABS: Basophils % 0.6 % (0.1-2.0); Eosinophils # 0.1 K/mm3 (0.0-0.4); Eosinophils % 1.4 % (0.1-12.0); Hematocrit 52.2 % (42.0-52.0); Lymphocytes # 1.4 K/mm3 (0.7-4.5); Lymphocytes % 29.5 % (10-50); Mean Corpuscular HGB Conc 32.5 g/dL (31.8-35.4); Mean Corpuscular Hemoglobin 31.3 pg (27.0-31.2); Mean Corpuscular Volume 96.3 fl (80-94); Mean Platelet Volume 8.3 fl (7.4-10.4); Monocytes # 0.4 K/mm3 (0.1-1.0); Monocytes % 7.9 % (1.7-9.3); Neutrophils # 2.9 K/mm3 (1.8-7.8); Neutrophils % 60.5 % (37.0-80.0); Platelet Count 189 K/mm3 (142-424); Red Blood Count 5.42 M/mm3 (4.60-6.20); Red Cell Distribution Width 13.5 % (11.5-17.5); White Blood Count 4.8 K/mm3 (4.8-10.8)
[2023-02-12 18:25] LABS: Alanine Aminotransferase 28 U/L (12-78); Albumin Level 4.6 g/dl (3.5-5.0); Albumin/Globulin Ratio 1.4 (1.1-1.8); Alkaline Phosphatase 117 U/L (38-126); Anion Gap 15.3 mEq/L (5-15); Aspartate Amino Transferase 28 U/L (17-59); Bilirubin,Total 0.7 mg/dl (0.2-1.3); Blood Urea Nitrogen 13 mg/dl (9-20); Calcium 9.3 mg/dl (8.4-10.2); Carbon Dioxide 25 mmol/L (22.0-30.0); Chloride 103 mmol/L (98-107); Chol/HDL Ratio 4.9 (1-3.5); Cholesterol 210 mg/dl (140-200); Estimated Glomerular Filt Rate 118 ml/min (>60); GFR (African American) 143 ML/MIN (>60); Globulin 3.2 g/dL (1.3-3.2); Glucose 245 mg/dl (74-100); HDL Cholesterol 43 mg/dl (40-60); Potassium 4.3 mmoL/L (3.5-5.1); Sodium 139 mmol/L (136-145); Total Protein,Serum 7.8 g/dl (6.3-8.2); Triglycerides 179 mg/dl (30-150); VLDL Cholesterol 36 mg/dL (0-40)
[2023-02-12 18:36] LABS: Direct LDL Cholesterol 129.79 mg/dL (100-129)
[2023-02-12 18:43] LABS: 25-OH Vitamin D, Total 31.2 ng/mL (30-100)
[2023-02-12 18:45] LABS: Hemoglobin A1C 9.3 % (4.0-6.0)
[2023-02-12 18:56] LABS: Prostate Specific Ag Screen 0.7 ng/ml (0.0-4.0)
[2023-02-12 18:58] LABS: Thyroid Stimulating Hormone 4.28 uIU/mL (0.465-4.68)
[2023-02-12 19:16] LABS: Creatinine,Urine Random 128 mg/dL (Not Estab.)
[2023-02-12 19:19] LABS: Microalbumin/Creatinine Ratio 8.1
== END ==
PROVIDERS: PCP Student in an Organized Health Care Education/Training Program; Visit Provider Student in an Organized Health Care Education/Training Program
DX: E11.9 Type 2 diabetes mellitus without complications (principal); E55.9 Vitamin D deficiency, unspecified; Z13.29 Encounter for screening for other suspected endocrine disorder; Z12.5 Encounter for screening for malignant neoplasm of prostate; Z79.899 Other long term (current) drug therapy
CPT/HCPCS: 80053; 80061; 82043; 82306; 82570; 83036; 84443; 85025; G0103

== ENCOUNTER → 2023-02-19 11:00 | Outpatient (CLI) | payer BC, SELFPAY ==
[2023-02-19 20:53] LABS: Alanine Aminotransferase 30 U/L (12-78); Albumin Level 4.9 g/dl (3.5-5.0); Albumin/Globulin Ratio 1.6 (1.1-1.8); Alkaline Phosphatase 114 U/L (38-126); Anion Gap 16.1 mEq/L (5-15); Aspartate Amino Transferase 26 U/L (17-59); Bilirubin,Total 0.6 mg/dl (0.2-1.3); Blood Urea Nitrogen 16 mg/dl (9-20); Calcium 9.6 mg/dl (8.4-10.2); Carbon Dioxide 24 mmol/L (22.0-30.0); Chloride 104 mmol/L (98-107); Estimated Glomerular Filt Rate 118 ml/min (>60); GFR (African American) 143 ML/MIN (>60); Glucose 236 mg/dl (74-100); Potassium 4.1 mmoL/L (3.5-5.1); Sodium 140 mmol/L (136-145); Total Protein,Serum 7.9 g/dl (6.3-8.2)
== END ==
PROVIDERS: PCP Student in an Organized Health Care Education/Training Program; Visit Provider Student in an Organized Health Care Education/Training Program
DX: I10 Essential (primary) hypertension (principal)
CPT/HCPCS: 80053

== ENCOUNTER → 2023-02-19 11:47 | Outpatient (CLI) | payer BC, SELFPAY ==
--- NOTE | 2023-02-19 11:53 | XR_ITS ---
FINAL REPORT CLINICAL HISTORY: Mid back pain COMPARISON: None FINDINGS: Three views of the thoracic spine were obtained. There is no fracture present. There is no malalignment. There is mild and moderate degenerative change with osteophytes. IMPRESSION: Mild and moderate degenerative change without acute process. Reviewed, Interpreted and Dictated by Layo Howard III, MD Transcribed by Marlene Eid Authenticated and [facility]
--- NOTE | 2023-02-19 11:53 | XR_ITS ---
FINAL REPORT CLINICAL HISTORY: left shoulder pain COMPARISON: None FINDINGS: LEFT SHOULDER: 3 views of the left shoulder were obtained. There is no acute fracture or dislocation. There is mild AC joint degenerative change. There is no soft tissue abnormality. IMPRESSION: Mild degenerative change without acute bony abnormality. Reviewed, Interpreted and Dictated by Lyao Howard III, MD Transcribed by Marlene Eid Authenticated and [facility]
--- NOTE | 2023-02-19 11:53 | XR_ITS ---
FINAL REPORT CLINICAL HISTORY: Low back pain COMPARISON: None FINDINGS: 3 views of the lumbar spine were obtained. There is no evidence of fracture or dislocation. The vertebral alignment is normal. There is mild degenerative change with osteophytes. No paraspinous soft tissue abnormalities identified. IMPRESSION: Mild degenerative change without acute bony abnormality. Reviewed, Interpreted and Dictated by Layo Howard III, MD Transcribed by Marlene Eid Authenticated and [facility]
== END ==
LOC: RAD 11:48
PROVIDERS: PCP Student in an Organized Health Care Education/Training Program; Visit Provider Student in an Organized Health Care Education/Training Program
DX: M25.512 Pain in left shoulder (principal); M54.9 Dorsalgia, unspecified; M54.6 Pain in thoracic spine; M54.50 Low back pain, unspecified
CPT/HCPCS: 72070; 72100; 73030

== ENCOUNTER → 2023-02-24 11:06 | Outpatient (CLI) | payer BC, SELFPAY ==
--- NOTE | 2023-02-24 11:09 | CA_ITS ---
APPROVED REPORT EXAM: Comprehensive 2D, Doppler, and color-flow Echocardiogram Associate Professor Of Archaeology: Amita Burroughs RDCS Ht: 5 ft 9 in Wt: 178lbs BSA: 1.97 BP: 126/98 mmHg Indications: CP,SMOKER,EDEMA,HTN,HLP,DM,SOA 2D Dimensions LVOT 1.53 cm (M/F) 1.5-2.5 M-Mode Dimensions RVDd 2.90 cm (0.9-2.6) LA Diam 3.73 cm (1.9-4.0) LVDd 5.83 cm (3.5-5.7) Ao Diam 3.52 cm (2.0-3.7) LVDs 4.04 cm (3.5-5.7) IVSd 0.82 cm (0.6-1.1) PWd 0.82 cm (0.6-1.1) EF (Teich) 57.40% FS 30.70% EDV (Teich) 168.50 mL TAPSE 1.58 (<1.7) ESV (Teich) 71.70 mL LV Diastology E Decel Time 213.00 (160-240 msec) E/A Ratio 0.7 MED E' 3.70 (< 7 cm/sec) E'/MED E' Ratio 13.19 (>14) LAT E' 6.40 (<10 cm/sec) E/LAT E' Ratio 7.62 (>14) Mitral Valve MV E Max Guy. 49.00 (40-130 cm/s) MV A Velocity 66.00 (40-130 cm/s) E/A Ratio 0.73 MV Decel. Time 213.00 (160-240 ms) MV PHT 62.00 ms Left Ventricle The left ventricle is normal size. The left ventricular systolic function is normal. The left ventricular ejection fraction is within the normal range. There is normal left ventricular wall thickness. There is mild hypokinesis of the septal wall. The left ventricular diastolic function is normal. LVEF is 55%. Right Ventricle The right ventricle is normal size. The right ventricular systolic function is normal. Atria The left atrium size is normal. The right atrium size is normal. There is no Doppler evidence of interatrial shunt. Aortic Valve The aortic valve is trileaflet. The aortic valve opens well. There is no aortic valvular stenosis. No aortic regurgitation is present. Mitral Valve The mitral valve is normal in structure. No evidence of mitral valve stenosis. Trace mitral regurgitation. Tricuspid Valve The tricuspid valve leaflets are thin and pliable. Trace tricuspid regurgitation. There is insufficient TR jet to estimate RVSP. Pulmonic Valve The pulmonary valve is normal in structure. Trace pulmonic regurgitation. Great Vessels The aortic root is normal in size. The ascending aorta is not well visualized. IVC is normal in size and collapses >50% with inspiration. Pericardium There is no pericardial effusion. Other Information Study Quality: Adequate Conclusion Normal biventricular systolic function. Mild hypokinesis of the septal LV wall. No significant valvular stenosis or regurgitation. Electronically signed by : Annalisa Ngo MD 02/27/2023 19:49:42
--- NOTE | 2023-02-24 11:09 | US_ITS ---
FINAL REPORT CLINICAL HISTORY: leg numbness, DM,TOBACCO USER FINDINGS: ANKLE/BRACHIAL INDICES FINDINGS: Pressure indices are as follows: RIGHT LOWER EXTREMITY: Ankle brachial pressure index: 1.2 Comments: Normal LEFT LOWER EXTREMITY: Ankle brachial pressure index: 1.1 Comments: Normal IMPRESSION: No evidence of significant obstructive peripheral vascular disease of the lower extremities. Reviewed, Interpreted and Dictated by Layo Howard III, MD Transcribed by David Dobbs Authenticated and [facility]
--- NOTE | 2023-02-24 11:36 | NM_ITS ---
APPROVED REPORT Exam: Nuclear Stress Test Indication: chest pain..short of breath..high cholesterol..diabetes..tobacco uses..fatigue..high bp Patient Location: Outpatient Stress Tech: Sara Cobb [place] Tech:nAgela DiasLUZ MARIA RT (R)(N)(M) Ht: 5 ft 9 in Wt: 178 lbs HR: 89 bpm BP: 118/89 mmHg BSA: 1.97 m2 Rhythm: NSR TID: 1.09 BMI: 26.2 History: chest pain..short of breath..high cholesterol..diabetes..tobacco uses..fatigue..high bp Procedure: Patient received 0.4 mg of intravenous Lexiscan, resting heart rate 89 bpm, resting blood pressure 118/89 mmHg, with Lexiscan maximum heart rate achieved was 115 bpm which is 85 % of the maximum predicted heart rate and blood pressure was 137/92 mmHg. With Lexiscan, patient denied any complaint of chest pain. Cardiac Stress and Resting SPECT Images: Cardiac Stress and Resting SPECT images were obtained using technetium 99m Myoview 31.1 mCi stress and 10.98 mCi at rest. Resting and stress imaging in supine and prone positions demonstrate no evidence of fixed or reversible perfusion defects. Gated imaging demonstrates mild reduction in global LV systolic function. LVEF is calculated at 49%. Conclusion: No evidence of fixed or reversible perfusion defects. Gated imaging demonstrates mild reduction in global LV systolic function. LVEF is calculated at 49%. Electronically signed by : Annalisa Ngo MD 03/01/2023 00:33:12
--- NOTE | 2023-02-24 14:15 | CA_ITS ---
APPROVED REPORT Exam: Pharmacologic Technologist: Sara Cobb Ht: 5 ft 9 in Wt: 178 lbs BSA: 1.97 m2 HR: 89 bpm BP: 118/89 mmHg Rhythm: NSR Indications: Leg numbness Medical History Medications: Lisinopril,,,,, Lidocaine,,,,, Atorvastatin,,,,, Cyclobenzaprine,,,,, EMpagliflozin,,,,, AmiTRIPTYLline,,,,, Stress Test Details Test: LEXISCAN HR Resting HR: 91 bpm Max Heart Rate (APMHR): 167 bpm Max HR Achieved: 119 bpm Target HR (85% APMHR): 142 bpm % of APMHR: 71 Recovery HR: 103 bpm BP Resting BP: 118.0/89.0 mmHg Max BP: 156.0/90.0 mmHg Recovery BP: 115.0/79.0 mmHg ECG Resting ECG: Sinus rhythm Stress ECG: No significant ST changes Arrhythmia: None Clinical Exercise duration: 04:03 min Highest Stage Achieved: Exercise capacity: 1.0 METs Stress ECG Conclusion Symptoms: Nausea Arrhythmias/Ectopy: None ST-T Changes: No significant ST changes Conclusion: Unremarkable Lexiscan stress test. Myoview images are reported separately. Test Summary REST . . . . . . . Resting REST 02:37 . . 91 . 118/ 89 . . Stage 1 . . . . . . . Myoview Injected Stage 1 01:00 . . 112 . . . . Stage 2 01:00 . . 115 . . . . Stage 3 01:00 . . 108 . 150/ 98 . . Stage 4 01:00 . . 103 . . . . Stage 4 01:03 . . 104 . . . Stop exercise at 04:03 RECOVERY 01:00 . . 107 . 156/ 90 . . RECOVERY 02:00 . . 102 . 138/ 71 . . RECOVERY 03:00 . . 108 . 138/ 71 . . RECOVERY 04:00 . . 103 . 124/ 95 . . RECOVERY 05:00 . . 103 . 124/ 95 . . RECOVERY 06:00 . . 99 . 135/ 85 . . RECOVERY 07:00 . . 104 . 115/ 79 . . RECOVERY 07:26 . . 99 . 115/ 79 . . Electronically signed by : Annalisa Ngo MD 03/01/2023 00:31:45
== END ==
LOC: RT 11:06
PROVIDERS: PCP Student in an Organized Health Care Education/Training Program; Visit Provider Nurse Practitioner Family
DX: R07.9 Chest pain, unspecified (principal); R06.00 Dyspnea, unspecified; R60.0 Localized edema; I25.10 Atherosclerotic heart disease of native coronary artery without angina pectoris; I10 Essential (primary) hypertension; R42 Dizziness and giddiness; R53.83 Other fatigue; R20.0 Anesthesia of skin; Z87.891 Personal history of nicotine dependence
CPT/HCPCS: 78452; 93017; 93306; 93923; A9502; J2785

== ENCOUNTER → 2023-03-17 08:45 | Outpatient (CLI) | payer BC, SELFPAY ==
--- NOTE | 2023-03-17 08:50 | XR_ITS ---
FINAL REPORT CLINICAL HISTORY: Foot pain FINDINGS: Right foot Three views were obtained. There is no acute fracture or dislocation. There is a plantar calcaneal spur. There are mild degenerative changes of the great toe. No soft tissue abnormality is identified. IMPRESSION: Degenerative changes as above. Reviewed, Interpreted and Dictated by Layo Howard III, MD Transcribed by Mirian Glez Authenticated and [facility]
--- NOTE | 2023-03-17 08:50 | XR_ITS ---
FINAL REPORT CLINICAL HISTORY: Foot pain FINDINGS: Left foot Three views were obtained. There is no acute fracture or dislocation. There is a plantar calcaneal spur. There are mild degenerative changes of the great toe. No soft tissue abnormality is identified. IMPRESSION: Degenerative changes as above. Reviewed, Interpreted and Dictated by Layo Howard III, MD Transcribed by Mirian Glez Authenticated and [facility]
[2023-03-17 14:41] VITALS: BMI 26.4
== END ==
PROVIDERS: PCP Student in an Organized Health Care Education/Training Program; Visit Provider Student in an Organized Health Care Education/Training Program
DX: M79.671 Pain in right foot (principal); M79.672 Pain in left foot; E11.8 Type 2 diabetes mellitus with unspecified complications; Z79.84 Long term (current) use of oral hypoglycemic drugs
CPT/HCPCS: 73630; 97802

== ENCOUNTER → 2023-03-23 09:00 | Outpatient (CLI) | payer BC, SELFPAY ==
[2023-03-23 21:01] LABS: Hemoglobin A1C 8.4 % (4.0-6.0)
[2023-03-23 21:33] LABS: Vitamin B12 598 pg/mL (239-931)
[2023-03-25 14:19] LABS: Anti-Centromere B Antibodies <0.2 AI (0.0-0.9); Anti-DNA (DS) Ab Qn <1 IU/mL (0-9); Anti-Jo-1 <0.2 AI (0.0-0.9); Anti-Smith Antibody <0.2 AI (0.0-0.9); Antichromatin Antibodies <0.2 AI (0.0-0.9); Antiscleroderma-70 Antibodies <0.2 AI (0.0-0.9); RNP Antibodies 0.2 AI (0.0-0.9); Sjogren's Anti-SS-A <0.2 AI (0.0-0.9); Sjogren's Anti-SS-B <0.2 AI (0.0-0.9)
== END ==
PROVIDERS: PCP Student in an Organized Health Care Education/Training Program; Visit Provider Student in an Organized Health Care Education/Training Program
DX: E11.9 Type 2 diabetes mellitus without complications (principal); G62.9 Polyneuropathy, unspecified
CPT/HCPCS: 82607; 83036; 86225; 86235

== ENCOUNTER → 2023-04-13 13:41 | Outpatient (POV) | payer BC, SELFPAY ==
--- NOTE | 2023-04-13 14:00 | EXP.PAIN.OV ---
HPI Data of Consult Patient: new to practice Consult date: 04/13/23 Requesting Physician: Irena Swan APRN Primary Care Provider: MARTINA Mccoy Consult Narrative History of present illness: Mr. Edmonds is a 52 year old male who presents today as a new patient. He is a referral from [facility] office. Today he rates his pain a 5 out of 10. Patient states the pain is all in his low back with radiating pain to his hips and down his right leg. Patient does describe this as a constant hurting sensation with occasional sharp shooting pains and a burning numbness down his right leg. Patient does state that he has some numbness in his left leg but it is more around his knee and upper calf related to a previous laser surgery that was required after his accident. Patient states this has been going on since he fell out of a tobacco barn approximately 32 feet when he was around 17 years old. He states that the barn did come down on top of him and he was pinned for approximately 20 to 30 minutes. Patient states the pain is progressively worsened and does interfere with his ability perform activities of daily living such as cooking and cleaning. 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 Patient does do a home exercise regiment and stretching on a regular basis daily with no change. Patient does have numbness into his bilateral feet as well. He states he is scheduled to Have a appointment with a neurologist coming up. Patient denies any previous surgery, injection history or physical therapy. He has tried adxa-zeh-iptpqau medications such as Tylenol and ibuprofen along with heat and ice and topicals with no additional relief. Patient does use lidocaine patches and states these help a little. Patient is not on any scheduled medications. His Patricio has been reviewed and is appropriate. CC: Irena Swan APRN [facility] Disclaimer: The information contained in this section may have been updated after the patient was seen, as this information can be updated by other users. Medical History Coronary artery calcification seen on CAT scan 2021 CTA chest-mild coronary artery calcification Decreased sensation of foot Diabetes mellitus, type 2 Hyperlipidemia Hypertension Neuropathy Surgical History H/O arthroscopic knee surgery Family History Other No significant family history Social History Smoking Status: Former smoker tobacco type: smokeless tobacco alcohol intake: never substance use type: marijuana current occupational status: employed Travel in the last 8 weeks: None housing: house Review of Systems Review of Systems Review of systems:: pertinent systems reviewed and negative unless documented below Review of systems (narrative): Review of Systems: General: No recent weight changes, no fever, no sleep disturbances Respiratory: No cough, no shortness of air, no recurring pulmonary infections Cardiovascular/peripheral vascular: No chest pain, no palpitations, no edema, no shortness of breath Gastrointestinal: No new onset incontinence, normal bowel movements reported Genitourinary: No new onset incontinence Musculoskeletal: Low back pain, leg pain/numbness Psychiatric: [Normal mood/affect] Neurological: [Denies weakness in extremities], [denies balance issues] Meds Home Medications and Allergies Home Medications Medication Instructions Recorded Confirmed Type atorvastatin 40 mg tablet 40 mg PO DAILY #60 tabs 02/13/23 03/23/23 Rx empagliflozin 25 mg tablet 25 mg PO DAILY #60 tabs 02/13/23 03/23/23 Rx (Jardiance) lisinopril 5 mg tablet 5 mg PO DAILY #30 tabs 02/13/23 03/23/23 Rx cyclobenzaprine 10 mg tablet 10 mg PO HS PRN muscle spasm #30 02/19/23 03/23/23 Rx tabs blood campos
[2023-04-13 15:14] VITALS: BP 123/82; PULSE 95; RESP 18; O2SAT 97; BMI 26.4
== END ==
PROVIDERS: PCP Student in an Organized Health Care Education/Training Program; Visit Provider Nurse Practitioner Family
DX: M51.36 Other intervertebral disc degeneration, lumbar region (principal); M51.34 Other intervertebral disc degeneration, thoracic region
CPT/HCPCS: 99202; G0463

== ENCOUNTER 2023-05-01 10:36 | Day surgery (SDC) | payer BC, SELFPAY ==
[2023-05-01 10:55] VITALS: BP 124/78; PULSE 77; RESP 16; TEMP 36.3; O2SAT 98; BMI 25.5
[2023-05-01 11:07] VITALS: BP 120/80; PULSE 75; RESP 18; O2SAT 98
[2023-05-01 11:08] VITALS: BP 120/80; PULSE 81; RESP 18; O2SAT 97
[2023-05-01 11:15] VITALS: BP 125/63; PULSE 84; RESP 16; O2SAT 98
--- NOTE | 2023-05-01 11:15 | P.PCN_ITS ---
Procedure Date: 05/01/23 Time: 11:00 Anesthesiologist:: Sam Mercado CRNA Complications:: None Pre-procedure Diagnosis:: Degenerative disc lumbar spine multilevels. Lumbar radiculopathy. Post-procedure Diagnosis:: Same. Indications for Procedure:: Patient is a pleasant 52-year-old male comes our clinic today for lumbar epidural steroid injection. Patient reports low back pain as well as bilateral hip and leg radicular symptoms. He rates his pain 7/10. Procedure Details:: Procedure: Lumbar epidural steroid injection under fluoroscopy Informed consent was obtained and the risks and benefits of the procedure were explained to the patient. The patient was taken to the procedure room and noninvasive monitors placed, including noninvasive blood pressure cuff and pulse oximeter. The back was viewed using C-arm Fluoroscopy and prepped using Chloraprep as a cleansing solution and the L4-L5 interspace was palpated. Skin and subcutaneous tissues were anesthetized using lidocaine 1.5% and a 25-gauge needle. After this, an 18-gauge Touhy epidural needle was placed into the L4-L5 interspace and advanced using fluoroscopic guidance and loss of resistance to air until the epidural space was encountered. After confirmation of needle p lacement in the epidural space, with dye, a solution containing normal saline, 3 mL and Depo-Medrol 80 mg were incrementally injected into the lumbar epidural space. The patient tolerated the procedure well with no complications. The patient was observed in the Pain Clinic and then discharged home neurologically intact. Plan and Disposition:: Patient was discharged without incident.
== END 2023-05-01 11:15 | disposition home or self-care (01) ==
PROVIDERS: PCP Student in an Organized Health Care Education/Training Program; Visit Provider Nurse Anesthetist, Certified Registered
DX: M51.16 Intervertebral disc disorders with radiculopathy, lumbar region (principal)
CPT/HCPCS: 62323; J1040

== ENCOUNTER → 2023-05-19 12:59 | Outpatient (POV) | payer BC, SELFPAY ==
[2023-05-19 13:22] VITALS: BP 106/63; PULSE 108; RESP 18; O2SAT 97; BMI 25.5
--- NOTE | 2023-05-19 13:33 | A.OFFVIS_ITS ---
[facility] Pain Management SOAP Note Subjective:: This patient is a very pleasant 52-year-old male who returns our clinic today after receiving lumbar epidural steroid injection at the L4-5 level. Patient reports 0 relief in terms of his overall low back pain as well as bilateral hip and leg radicular symptoms. Upon examination today patient has low lumbar back pain off the midline bilaterally. Bilateral hip and leg radicular symptoms including the anterior thigh and down the anterior portion of the tibia. Patient has extreme point tenderness over the bilateral sacroiliac joints. Patient has positive bilateral sacroiliac joint compression test. Bilateral positive Jos's test. Bilateral positive Gaenslen's test. Patient has tried and failed conservative measures regarding this pain. Including NSAIDs, acetaminophen, physical therapy, home exercise program. Patient's Patricio #[phone] has been reviewed and appropriate. Objective:: Patient is awake alert [place] x 3. No acute distress. Flexion-extension lumbar spine very guarded secondary to pain. Deep tendon reflexes upper lower extremities normal. Motor strength upper and lower extremities normal. There is no gross sensory deficit. Gait is normal. Assessment:: Degenerative disc lumbar spine multilevels. Lumbar radiculopathy. Bilateral sacroiliitis. Lumbar spondylosis. Plan:: Discussed in detail with the patient regarding treatment options. I believe the patient has multifaceted pain generator. However, we do not have lumbar imaging outside of a simple x-ray to discern pathology. 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 His low back pain is constant, dull, aching. Also, patient has high lumbar low thoracic pain that he describes as constant, dull, aching. His main complaint today is the bilateral posterior hip pain as well as bilateral leg radicular symptoms. I recommend bilateral sacroiliac joint injections. We can also obtain some lumbar MRI imaging. [facility] Disclaimer: The information contained in this section may have been updated after the patient was seen, as this information can be updated by other users. Medical History Coronary artery calcification seen on CAT scan 2021 CTA chest-mild coronary artery calcification Decreased sensation of foot Diabetes mellitus, type 2 Hyperlipidemia Hypertension Neuropathy Surgical History H/O arthroscopic knee surgery Family History Other No significant family history Social History Smoking Status: Former smoker tobacco type: smokeless tobacco alcohol intake: never substance use type: marijuana current occupational status: employed Travel in the last 8 weeks: None housing: house
== END ==
LOC: SC.PAIN 13:00
PROVIDERS: PCP Student in an Organized Health Care Education/Training Program; Visit Provider Nurse Anesthetist, Certified Registered
DX: M51.16 Intervertebral disc disorders with radiculopathy, lumbar region (principal); M47.26 Other spondylosis with radiculopathy, lumbar region; M46.1 Sacroiliitis, not elsewhere classified
CPT/HCPCS: 99212; G0463

== ENCOUNTER 2023-05-22 08:32 | Outpatient (CLI) | payer BC, SELFPAY ==
[2023-05-22 18:54] LABS: Basophils % 0.6 % (0.1-2.0); Eosinophils # 0.1 K/mm3 (0.0-0.4); Eosinophils % 2.5 % (0.1-12.0); Hemoglobin 15.7 g/dL (14.1-18.0); Lymphocytes # 1.6 K/mm3 (0.7-4.5); Lymphocytes % 31.1 % (10-50); Mean Corpuscular HGB Conc 34.9 g/dL (31.8-35.4); Mean Corpuscular Hemoglobin 32.7 pg (27.0-31.2); Mean Corpuscular Volume 93.5 fl (80-94); Mean Platelet Volume 8.6 fl (7.4-10.4); Monocytes # 0.5 K/mm3 (0.1-1.0); Monocytes % 8.5 % (1.7-9.3); Neutrophils % 57.4 % (37.0-80.0); Platelet Count 154 K/mm3 (142-424); Red Blood Count 4.82 M/mm3 (4.60-6.20); Red Cell Distribution Width 13.7 % (11.5-17.5); White Blood Count 5.3 K/mm3 (4.8-10.8)
[2023-05-22 18:58] LABS: Alanine Aminotransferase 34 U/L (12-78); Albumin Level 4.5 g/dl (3.5-5.0); Albumin/Globulin Ratio 1.6 (1.1-1.8); Alkaline Phosphatase 109 U/L (38-126); Anion Gap 10.8 mEq/L (5-15); Aspartate Amino Transferase 29 U/L (17-59); Bilirubin,Total 0.5 mg/dl (0.2-1.3); Blood Urea Nitrogen 22 mg/dl (9-20); Calcium 9.6 mg/dl (8.4-10.2); Carbon Dioxide 26 mmol/L (22.0-30.0); Chloride 105 mmol/L (98-107); Chol/HDL Ratio 3.1 (1-3.5); Cholesterol 138 mg/dl (140-200); Estimated Glomerular Filt Rate 101 ml/min (>60); GFR (African American) 122 ML/MIN (>60); Globulin 2.9 g/dL (1.3-3.2); Glucose 158 mg/dl (74-100); HDL Cholesterol 44 mg/dl (40-60); Potassium 3.8 mmoL/L (3.5-5.1); Sodium 138 mmol/L (136-145); Total Protein,Serum 7.4 g/dl (6.3-8.2); Triglycerides 187 mg/dl (30-150); VLDL Cholesterol 37 mg/dL (0-40)
[2023-05-22 19:11] LABS: Direct LDL Cholesterol 66.26 mg/dL (100-129)
[2023-05-22 19:29] LABS: Thyroid Stimulating Hormone 4.31 uIU/mL (0.465-4.68)
[2023-05-22 20:06] LABS: Hemoglobin A1C 8.2 % (4.0-6.0)
[2023-05-22 22:52] LABS: 25-OH Vitamin D, Total 37.3 ng/mL (30-100)
== END 2023-05-22 23:59 ==
LOC: LAB.DROPOF 05-23 08:32
PROVIDERS: PCP Student in an Organized Health Care Education/Training Program; Visit Provider Student in an Organized Health Care Education/Training Program
DX: E11.9 Type 2 diabetes mellitus without complications (principal); Z13.29 Encounter for screening for other suspected endocrine disorder; R20.0 Anesthesia of skin; R94.130 Abnormal response to nerve stimulation, unspecified; Z79.899 Other long term (current) drug therapy
CPT/HCPCS: 80053; 80061; 82306; 82746; 83036; 84443; 85025

== ENCOUNTER 2023-06-16 13:30 | Day surgery (SDC) | payer BC, SELFPAY ==
[2023-06-16 13:40] VITALS: BP 125/76; PULSE 88; RESP 18; TEMP 36.6; O2SAT 99; BMI 25.1
--- NOTE | 2023-06-16 13:59 | P.PCN_ITS ---
Procedure Date: 06/16/23 Time: 13:50 Anesthesiologist:: Sam Mercado CRNA Complications:: None Pre-procedure Diagnosis:: Degenerative disc lumbar spine multilevels. Lumbar radiculopathy. Bilateral sacroiliitis. Post-procedure Diagnosis:: Same. Indications for Procedure:: Patient is a very pleasant 52-year-old male that comes our clinic today for bilateral sacroiliac joint injection. Patient has bilateral lumbar back pain off the midline. Patient also reports bilateral posterior hip pain. Upon examination has extreme point tenderness over the bilateral SI joints. He rates his pain 8/10 Procedure Details:: Procedure: Bilateral sacroiliac joint injections under fluoroscopy Informed consent was obtained and the risks and benefits of the procedure were explained to the patient.~ The patient was taken to the procedure room and n oninvasive monitors were placed including a noninvasive blood pressure cuff and pulse oximeter.~ The patient was placed prone on the procedure table. Both hips were cleansed using Betadine as a cleansing solution. C-arm fluoroscopy was used to view the right sacroiliac joint.~ The skin and subcutaneous tissues were anesthetized using lidocaine 1.5% and a 25-gauge needle.~ After this, a 22-gauge spinal needle was inserted under fluoroscopic guidance into the inferior aspect of the right sacroiliac joint.~ Omnipaque dye was injected and good spread was seen throughout the joint.~ After this, approximately 5 mL of bupivacaine, 0.25% and Depo-Medrol, 40 mg was incrementally injected into the right sacroiliac joint. We then moved to the left sacroiliac joint.~ The skin and subcutaneous tissues were anesthetized using lidocaine 1.5% and a 25-gauge needle.~ After this, a 22- gauge spinal needle was inserted under fluoroscopic guidance into the inferior aspect of the left sacroiliac joint.~ Omnipaque dye was injected and good spread was seen throughout the joint. After this, approximately 5 mL of bupivacaine, 0.25% and Depo-Medrol, 40 mg was incrementally injected into the left sacroiliac joint.~ The patient tolerated the procedure well with no complications. The patient was observed in the Pain Clinic and then was discharged home neurologically intact. Plan and Disposition:: Patient was discharged without incident.
[2023-06-16 14:00] VITALS: BP 100/60; PULSE 88; RESP 18; O2SAT 99
[2023-06-16 14:09] VITALS: BP 114/69; PULSE 85; RESP 18; O2SAT 98
[2023-06-16] MEDS: LIDOCAINE 1% 5ML PF VIAL 5 ML (14:09)
[2023-06-16] MEDS: methylPREDNISolone ACETATE 80MG/ML VIAL 80 MG (14:09)
[2023-06-16] MEDS: BUPIVACAINE 0.25% 10ML INJ 25 MG IJ (14:09)
[2023-06-16 14:11] VITALS: BP 114/69; PULSE 85; RESP 18; O2SAT 98
== END 2023-06-16 14:00 | disposition home or self-care (01) ==
PROVIDERS: PCP Student in an Organized Health Care Education/Training Program; Visit Provider Nurse Anesthetist, Certified Registered
DX: M46.1 Sacroiliitis, not elsewhere classified (principal)
CPT/HCPCS: 27096; G0260; J1040

== ENCOUNTER 2023-06-22 15:40 | Outpatient (CLI) | payer BC, SELFPAY ==
--- NOTE | 2023-06-22 15:44 | XR_ITS ---
FINAL REPORT CLINICAL HISTORY: Back pain, previous fx in l spine COMPARISON: None FINDINGS: 5 views of the lumbar spine were obtained with flexion and extension views. The vertebrae are normal height. Alignment is within normal limits. There is mild degenerative change with osteophytes. Prevertebral soft tissues are unremarkable. There is no abnormal movement with flexion or extension. IMPRESSION: Mild degenerative change without acute bony abnormality. No instability on flexion or extension Reviewed, Interpreted and Dictated by Layo Howard III, MD Transcribed by Marlene Eid Authenticated and [facility]
--- NOTE | 2023-06-22 15:44 | XR_ITS ---
FINAL REPORT CLINICAL HISTORY: Chronic back pain COMPARISON: None FINDINGS: Two views of the thoracic spine were obtained. There is no fracture present. There is no malalignment. There are moderate degenerative changes with osteophytes. IMPRESSION: Moderate degenerative changes. Reviewed, Interpreted and Dictated by Layo Howard III, MD Transcribed by Marlene Eid Authenticated and [facility]
== END 2023-06-22 23:59 ==
LOC: RAD 15:40
PROVIDERS: PCP Student in an Organized Health Care Education/Training Program; Visit Provider Specialist
DX: M51.34 Other intervertebral disc degeneration, thoracic region (principal); M51.36 Other intervertebral disc degeneration, lumbar region
CPT/HCPCS: 72070; 72114

== ENCOUNTER 2023-06-23 10:29 | Day surgery (SDC) | payer BC, SELFPAY ==
[2023-06-23] MEDS: LACTATED RINGERS 1000ML 1,000 ML 100 ML IV (10:49)
[2023-06-23 10:50] VITALS: BP 154/95; PULSE 102; RESP 18; TEMP 36.6; O2SAT 98; BMI 25.4
--- NOTE | 2023-06-23 11:02 | P.PNANES_ITS ---
[facility] Disclaimer: The information contained in this section may have been updated after the patient was seen, as this information can be updated by other users. Medical History Coronary artery calcification seen on CAT scan Decreased sensation of foot Diabetes mellitus, type 2 Hyperlipidemia Hypertension Neuropathy Surgical History H/O arthroscopic knee surgery Family History Other Alcoholism Asthma Cancer Coronary artery disease Diabetes Hyperlipidemia Hypertension No significant family history Social History Smoking Status: Former smoker tobacco type: smokeless tobacco alcohol intake: never substance use type: marijuana current occupational status: employed Travel in the last 8 weeks: None household members: spouse housing: house marital status: number of children: 7 caffeine: Yes [facility] Anesthesia Checklist Patient Identification Patient Identification: Arm Band and Verbal (Name & ) Structural Data Admitted From: Home Planned Operative Procedure/s: Colonoscopy Consent for Planned Operative Procedure(s) Verified: Yes NPO Status Verified Time NPO: 00:00 Additional verifications Anesthesia Reactions: No Hx Blood Transfusions: No Blood Transfusion Reaction: No Airway Assessment Mallampati Score:: Class IV C-Spine Mobility Assessed: Yes TMJ Mobility Assessed: Yes Dentition: Edentulous Neurological Assessment Level of Consciousness: Awake Hx Seizures: No Numbness or tingling in extremities: No Anesthesia Plan Anesthesia Risk discussed: Yes Anesthesia Plan: Verified ASA Class: II Anesthesia Type: MAC
--- NOTE | 2023-06-23 11:13 | HMH.SCOPE ---
Procedure: Date: 06/23/23 Patient Date of :: 1970 Procedure Performed:: Colonoscopy (limited visualization secondary to exceedingly poor bowel preparation) Indications:: Screening Diarrhea (chronic) Performing Provider:: Parker Owen MD Referring Provider:: . Sedation:: Monitored anesthesia care Procedure:: After informed consent was obtained the patient was taken to the endoscopy suite. Sedation ensued after the patient was transferred to the left lateral decubitus position. Pulse, blood pressure, and oxygen saturation were monitored throughout the procedure. Digital rectal exam revealed no significant abnormality. The colonoscope was placed in position. The entire colon was evaluated. The colonoscope was carefully removed and the patient was transferred to recovery in stable condition. Please see findings and specimens below for detail. Findings:: Exceedingly poor bowel preparation Fairly profound sigmoid tortuosity Profound spasticity/lack of relaxation Specimens:: None Recommendations:: Gastroenterology evaluation secondary to patient-reported history of chronic diarrhea (possible chronic diarrhea alternating with constipation as evidenced by exceedingly poor bowel preparation). Short-term repeat colonoscopy (to be performed by the gastroenterology service). Complications:: No immediate with the exception of exceedingly poor bowel preparation Estimated blood obtained (mL): 0 Colonoscopy Component Colonoscopy Component Was a colonoscopy performed during today's procedure?: Yes Recommended follow up colonoscopy of at least 10 years?: No If no, follow up colonoscopy recommended in ___ years?: (See above) Reason for not recommending >/= 10 yr follow-up interval?: (See above)
[2023-06-23 11:14] VITALS: O2SAT 98
[2023-06-23 11:47] VITALS: BP 87/55; PULSE 101; RESP 14; TEMP 36.4; O2SAT 97
[2023-06-23 11:57] VITALS: BP 90/58; PULSE 93; RESP 17; O2SAT 94
[2023-06-23 12:06] VITALS: BP 100/61; PULSE 89; RESP 17; O2SAT 94
[2023-06-23 12:17] VITALS: BP 110/73; PULSE 89; RESP 16; O2SAT 95
[2023-06-24 09:55] LABS: POC Glucose,Bedside 143 (70-110)
== END 2023-06-23 12:30 | disposition home or self-care (01) ==
PROVIDERS: PCP Student in an Organized Health Care Education/Training Program; Visit Provider Surgery
PROC: 0DJD8ZZ Inspection of Lower Intestinal Tract, Via Natural or Artificial Opening Endoscopic (ICD-10-PCS; CPT 45378; principal; 2023-06-23 10:30)
DX: K52.9 Noninfective gastroenteritis and colitis, unspecified (principal); Z91.199 Patient's noncompliance with other medical treatment and regimen due to unspecified reason; K56.2 Volvulus; E11.9 Type 2 diabetes mellitus without complications
CPT/HCPCS: 45378; 82962; J1610; J2704

== ENCOUNTER → 2023-07-03 14:05 | Outpatient (POV) | payer BC, SELFPAY ==
--- NOTE | 2023-07-03 14:11 | A.OFFVIS_ITS ---
[facility] Pain Management SOAP Note Subjective:: Patient is a pleasant 52-year-old male who presents today for follow-up of bilateral SI injections on 06/16/2023. We are currently treating the patient for low back pain with lumbar radiculopathy symptoms, bilateral sacroiliitis, lumbar spondylosis. Today he rates his pain a 4 out of 10. Patient states that this did help significantly he states between this and the other injection and adding Cymbalta onto his medication regimen and he really does feel like this is the best he has felt for years. He does state that he still continues to have pain in and around his tailbone and hips as well as his legs with numbness but it is much more manageable. He does state the pain in his tailbone is very irritating now and worse with prolonged positioning. He states the pain does interfere with his ability to perform activities of daily living such as cooking and cleaning. He does state that his feet still have numbness and tingling related to his diabetes. Patient does state that he is scheduled for MRI on the this month.Patient is not on any scheduled medications. His Patricio has been reviewed and is appropriate. Review of Systems: General: No recent weight changes, no fever, no sleep disturbances Respiratory: No cough, no shortness of air, no recurring pulmonary infections Cardiovascular/peripheral vascular: No chest pain, no palpitations, no edema, no shortness of breath Gastrointestinal: No new onset incontinence, normal bowel movements reported Genitourinary: No new onset incontinence Musculoskeletal: Tailbone pain Psychiatric: [Normal mood/affect] Neurological: [Denies weakness in extremities], [denies balance issues] Objective:: Physical Exam: General: Alert and oriented x3, no acute distress, pleasant and cooperative Lungs: Respirations even and unlabored, symmetrical chest expansion Eyes: PERRL Musculoskeletal: Flexion and extension of sacral [spine] somewhat guarded secondary to pain, [antalgic gait noted] point tenderness along lower sacrum Neurological: Speech clear, no gross sensory deficit FINDINGS: Two views of the thoracic spine were obtained. There is no fracture present. There is no malalignment. There are moderate degenerative changes with osteophytes. IMPRESSION: Moderate degenerative changes. Reviewed, Interpreted and Dictated by Layo Howard III, MD Transcribed by Marlene Eid Authenticated and [facility] FINDINGS: 5 views of the lumbar spine were obtained with flexion and extension views. The vertebrae are normal height. Alignment is within normal limits. There is mild degenerative change with osteophytes. Prevertebral soft tissues are unremarkable. There is no abnormal movement with flexion or extension. IMPRESSION: Mild degenerative change without acute bony abnormality. No instability on flexion or extension Reviewed, Interpreted and Dictated by Layo Howard III, MD Transcribed by Marlene Eid Authenticated and [facility] Assessment:: Degenerative disc disease of thoracic and lumbar spine with thoracic and lumbar radiculopathy symptoms, lumbar spondylosis, bilateral sacroiliitis, tailbone pain Plan:: Patient is experiencing worsening pain in and around his tailbone with limited range of motion of the sacral spine during today's visit. I have discussed with the patient that he may benefit from a caudal epidural. Risk and benefits were discussed with the patient and he would like to proceed forward with this plan of care. Patient is not on any blood thinners. Patient will be scheduled for a caudal epidural steroid injection under fluoroscopy. Patient has been instructed to contact the clinic with any concerns before the next appointment. Dr. Hebert has reviewed this note and agrees with this plan of care. This note was dictated using voice recognition software and make contain errors or omissions. [facility] Disclaimer: The information contained in this section may have been updated after the patient was seen, as this information can be updated by other users. Medical History Coronary artery calcification seen on CAT scan Decreased sensation of foot Diabetes mellitus, type 2 Hyperlipidemia Hypertension Neuropathy Surgical History H/O arthroscopic knee surgery Family History Other Alcoholism Asthma Cancer Coronary artery disease Diabetes Hyperlipidemia Hypertension No significant family history Social History Smoking Status: Former smoker tobacco type: smokeless tobacco alcohol intake: never substance use type: marijuana current occupational status: employed Travel in the last 8 weeks: None household members: spouse housing: house marital status: number of children: 7 caffeine: Yes
[2023-07-03 14:44] VITALS: BP 108/60; PULSE 102; RESP 18; O2SAT 97; BMI 25.1
== END ==
LOC: SC.PAIN 14:05
PROVIDERS: PCP Student in an Organized Health Care Education/Training Program; Visit Provider Nurse Practitioner Family
DX: M51.14 Intervertebral disc disorders with radiculopathy, thoracic region (principal); M51.16 Intervertebral disc disorders with radiculopathy, lumbar region; M47.26 Other spondylosis with radiculopathy, lumbar region; M46.1 Sacroiliitis, not elsewhere classified; M53.3 Sacrococcygeal disorders, not elsewhere classified
CPT/HCPCS: 99212; G0463

== ENCOUNTER 2023-07-13 15:37 | Outpatient (CLI) | payer BC, SELFPAY | END 2023-07-13 23:59 | LOC: RT 15:39 | PROVIDERS: PCP Student in an Organized Health Care Education/Training Program; Visit Provider Specialist | DX: G47.30 Sleep apnea, unspecified (principal) | CPT/HCPCS: 94762 ==

== ENCOUNTER 2023-07-14 06:51 | Outpatient (CLI) | payer BC, SELFPAY ==
--- NOTE | 2023-07-14 07:31 | MR_ITS ---
FINAL REPORT TECHNIQUE: Multiplanar and multisequence imaging of the lumbar spine was obtained without contrast. CLINICAL HISTORY: Low back pain. left leg numbness to knee. bilateral leg tingling FINDINGS: There is normal alignment of the lumbar vertebral bodies. Vertebral body height is preserved. The spinal cord ends at the level of L1. There is normal signal intensity within the substance of the distal spinal cord. No acute bone marrow edema or pathologic marrow replacement. No acute paraspinal abnormality is identified. L1-2: An annular disc bulge is present. There is no canal stenosis or neural foraminal narrowing. L2-3: An annular disc bulge is present. There is no canal stenosis or neural foraminal narrowing. L3-4: An annular disc bulge is present. There are degenerative endplate changes and facet osteoarthropathy. L4-5: Left foraminal disc protrusion is superimposed on an annular disc bulge. There is bilateral facet osteoarthropathy. There is mild to moderate canal stenosis. There is severe left and [id number] right neural foraminal narrowing. L5-S1: An annular disc bulge is present with mild left neural foraminal narrowing. IMPRESSION: Left foraminal disc protrusion at L4-5 with severe left neural foraminal narrowing. Multilevel degenerative disc disease as above. Reviewed, Interpreted and Dictated by Opal Stearns MD Transcribed by Mirian Glez Authenticated and [facility]
== END 2023-07-14 23:59 ==
LOC: RAD 06:52
PROVIDERS: PCP Student in an Organized Health Care Education/Training Program; Visit Provider Specialist
DX: G89.29 Other chronic pain (principal); M51.36 Other intervertebral disc degeneration, lumbar region; M54.50 Low back pain, unspecified
CPT/HCPCS: 72148; 76376

== ENCOUNTER 2023-07-30 14:11 | Outpatient (POV) | payer BC, SELFPAY ==
[2023-07-30 14:29] VITALS: BP 124/69; PULSE 92; RESP 18; O2SAT 95; BMI 25.4
--- NOTE | 2023-07-30 14:46 | A.OFFVIS_ITS ---
[facility] Pain Management SOAP Note Subjective:: Patient is a pleasant 52-year-old male who presents today for insurance denial as well as MRI of his lumbar spine follow-up. Today he rates his pain a 5 out of 10. Patient denies any new trauma or injury. From our last visit he had recently had a injury where he fell landing on his tailbone and was experiencing worsening pain. He states that this has improved and is not as severe. He does state that he is still currently having pain that goes down his low back into his bilateral lower extremities. He does describe this as a aching, throbbing sensation with numbness and is worse with increased activity or ambulation. He does state it interferes with his ability to perform activities of daily living such as cooking and cleaning. Patient is interested in any help we may be able to provide. His Patricio has been reviewed and is appropriate. Review of Systems: General: No recent weight changes, no fever, no sleep disturbances Respiratory: No cough, no shortness of air, no recurring pulmonary infections Cardiovascular/peripheral vascular: No chest pain, no palpitations, no edema, no shortness of breath Gastrointestinal: No new onset incontinence, normal bowel movements reported Genitourinary: No new onset incontinence Musculoskeletal: Low back pain, bilateral leg pain Psychiatric: [Normal mood/affect] Neurological: [Denies weakness in extremities], [denies balance issues] Objective:: Physical Exam: General: Alert and oriented x3, no acute distress, pleasant and cooperative Lungs: Respirations even and unlabored, symmetrical chest expansion Eyes: PERRL Musculoskeletal: Flexion and extension of lumbar [spine] somewhat guarded secondary to pain, [antalgic gait noted] Neurological: Speech clear, no gross sensory deficit FINDINGS: There is normal alignment of the lumbar vertebral bodies. Vertebral body height is preserved. The spinal cord ends at the level of L1. There is normal signal intensity within the substance of the distal spinal cord. No acute bone marrow edema or pathologic marrow replacement. No acute paraspinal abnormality is identified. L1-2: An annular disc bulge is present. There is no canal stenosis or neural foraminal narrowing. L2-3: An annular disc bulge is present. There is no canal stenosis or neural foraminal narrowing. L3-4: An annular disc bulge is present. There are degenerative endplate changes and facet osteoarthropathy. L4-5: Left foraminal disc protrusion is superimposed on an annular disc bulge. There is bilateral facet osteoarthropathy. There is mild to moderate canal stenosis. There is severe left and [id number] right neural foraminal narrowing. L5-S1: An annular disc bulge is present with mild left neural foraminal narrowing. IMPRESSION: Left foraminal disc protrusion at L4-5 with severe left neural foraminal narrowing. Multilevel degenerative disc disease as above. Reviewed, Interpreted and Dictated by Opal Stearns MD Transcribed by Mirian Glez Authenticated and [facility] Assessment:: Degenerative disc disease of thoracic and lumbar spine with thoracic and lumbar radiculopathy symptoms Plan:: Patient is experiencing worsening pain in his low back and leg with limited range of motion of his lumbar spine. Patient's MRI findings were reviewed with the patient and I have discussed with the patient that he may benefit from a lumbar epidural steroid injection. Risk and benefits were discussed with patient and he would like to proceed forward with this plan of care. Patient did have multilevel degenerative disc disease with significant findings of lumbar stenosis and neuroforaminal narrowing that was more severe at the L4-L5 level. Patient is not on any blood thinners. Patient has tried and failed conservative therapy such as oral medications, heat and ice, topicals, at home stretching exercise for longer than 12 weeks. Patient is very active and continues to do an at home exercise regimen including walking daily and multiple stretches. Patient does also have a very demanding job that requires constant stretching and moving. We will schedule the patient for a LESI L4-L5 under fluoroscopy. Patient has been instructed to contact the clinic with any concerns before the next appointment. Dr. Hebert has reviewed this note and agrees with this plan of care. This note was dictated using voice recognition software and make contain errors or omissions. [facility] Disclaimer: The information contained in this section may have been updated after the patient was seen, as this information can be updated by other users. Medical History Decreased sensation of foot Neuropathy Chronic sensorimotor polyneuropathy mainly of demyelinating type, moderate. Coronary artery calcification seen on CAT scan 2021 CTA chest-mild coronary artery calcification Diabetes mellitus, type 2 Hyperlipidemia Hypertension Surgical History H/O arthroscopic knee surgery Family History Other Alcoholism Asthma Cancer Coronary artery disease Diabetes Hyperlipidemia Hypertension No significant family history Social History Smoking Status: Former smoker tobacco type: smokeless tobacco alcohol intake: never substance use type: marijuana current occupational status: employed Travel in the last 8 weeks: None household members: spouse housing: house marital status: number of children: 7 caffeine: Yes
== END 2023-07-30 23:59 ==
LOC: SC.PAIN 14:11
PROVIDERS: PCP Student in an Organized Health Care Education/Training Program; Visit Provider Nurse Practitioner Family
DX: M51.14 Intervertebral disc disorders with radiculopathy, thoracic region (principal); M51.16 Intervertebral disc disorders with radiculopathy, lumbar region
CPT/HCPCS: 99212; G0463

== ENCOUNTER 2023-09-21 12:27 | Outpatient (CLI) | payer BC, SELFPAY ==
[2023-09-21 18:51] LABS: Cholesterol 145 mg/dl (140-200); HDL Cholesterol 72 mg/dl (40-60); Triglycerides 82 mg/dl (30-150); VLDL Cholesterol 16 mg/dL (0-40)
[2023-09-21 18:55] LABS: Hemoglobin A1C 8.5 % (4.0-6.0)
[2023-09-21 19:02] LABS: Direct LDL Cholesterol 66.84 mg/dL (100-129)
== END 2023-09-21 23:59 | disposition home or self-care (01) ==
LOC: LAB.DROPOF 09-22 12:28
PROVIDERS: PCP Student in an Organized Health Care Education/Training Program; Visit Provider Student in an Organized Health Care Education/Training Program
DX: E78.5 Hyperlipidemia, unspecified (principal); E11.9 Type 2 diabetes mellitus without complications
CPT/HCPCS: 80061; 83036

== ENCOUNTER 2023-09-29 13:45 | Day surgery (SDC) | payer BC, SELFPAY ==
[2023-09-29 14:01] VITALS: BP 128/73; PULSE 121; RESP 18; TEMP 36.4; O2SAT 97; BMI 25.7
[2023-09-29] MEDS: methylPREDNISolone ACETATE 80MG/ML VIAL 80 MG (14:13)
[2023-09-29 14:14] VITALS: BP 115/82; PULSE 107; RESP 18; O2SAT 98
[2023-09-29 14:18] VITALS: BP 115/82; PULSE 107; RESP 18; O2SAT 98
--- NOTE | 2023-09-29 14:23 | P.PCN_ITS ---
Procedure Date: 09/29/23 Time: 13:45 Anesthesiologist:: Sam Mercado CRNA Complications:: None Pre-procedure Diagnosis:: Degenerative disc lumbar spine multilevels. Lumbar radiculopathy. Post-procedure Diagnosis:: Same. Indications for Procedure:: Very pleasant 52-year-old male comes our clinic today for lumbar epidural steroid injection. Patient reports low back pain as well as bilateral hip and leg radicular symptoms. He rates his pain today 7/10. Procedure Details:: Procedure: Lumbar epidural steroid injection under fluoroscopy Informed consent was obtained and the risks and benefits of the procedure were explained to the patient. The patient was taken to the procedure room and noninvasive monitors placed, including noninvasive blood pressure cuff and pulse oximeter. The back was viewed using C-arm Fluoroscopy and prepped using Chloraprep as a cleansing solution and the L4-L5 interspace was palpated. Skin and subcutaneous tissues were anesthetized using lidocaine 1.5% and a 25-gauge needle. After this, an 18-gauge Touhy epidural needle was placed into the L4-L5 interspace and advanced using fluoroscopic guidance and loss of resistance to air until the epidural space was encountered. After confirmation of needle kurtis cement in the epidural space, with dye, a solution containing normal saline, 3 mL and Depo-Medrol 80 mg were incrementally injected into the lumbar epidural space. The patient tolerated the procedure well with no complications. The patient was observed in the Pain Clinic and then discharged home neurologically intact. Plan and Disposition:: Patient was discharged without incident.
[2023-09-29 14:27] VITALS: BP 127/72; PULSE 122; RESP 18; O2SAT 97
== END 2023-09-29 14:28 | disposition home or self-care (01) ==
PROVIDERS: PCP Student in an Organized Health Care Education/Training Program; Visit Provider Nurse Anesthetist, Certified Registered
DX: M51.16 Intervertebral disc disorders with radiculopathy, lumbar region (principal)
CPT/HCPCS: 62323; J1010

== ENCOUNTER 2023-10-19 10:13 | Outpatient (POV) | payer BC, SELFPAY ==
[2023-10-19 10:15] VITALS: BP 148/95; PULSE 111; RESP 18; O2SAT 98; BMI 26.1
--- NOTE | 2023-10-19 10:30 | A.OFFVIS_ITS ---
[facility] Pain Management SOAP Note Subjective:: Patient is a pleasant 52-year-old male who presents today for follow-up of lumbar epidural steroid injection L4-L5 on 09/29/2023. Today he rates his pain a 5 out of 10. Patient denies any new trauma or injury. Patient does state that the injection did significantly help decrease the severity of his pain. He states that it would have at least taken down 50% and that his tailbone pain went completely away. Patient does state he continues to still have his chronic pain but he does notice at any given point and that frequently he will have other areas in his body that will flareup however right now it is at least more manageable. Patient does state that he does smoke some marijuana to help with the overall pain and is asking questions regarding the medical marijuana card. His Patricio has been reviewed and is appropriate. Review of Systems: General: No recent weight changes, no fever, no sleep disturbances Respiratory: No cough, no shortness of air, no recurring pulmonary infections Cardiovascular/peripheral vascular: No chest pain, no palpitations, no edema, no shortness of breath Gastrointestinal: No new onset incontinence, normal bowel movements reported Genitourinary: No new onset incontinence Musculoskeletal: low back pain Psychiatric: [Normal mood/affect] Neurological: [Denies weakness in extremities], [denies balance issues] Objective:: Physical Exam: General: Alert and oriented x3, no acute distress, pleasant and cooperative Lungs: Respirations even and unlabored, symmetrical chest expansion Eyes: PERRL Musculoskeletal: Flexion and extension of lumbar [spine] somewhat guarded secondary to pain, [antalgic gait noted] Neurological: Speech clear, no gross sensory deficit Assessment:: Degenerative disc disease of thoracic and lumbar spine with thoracic and lumbar radiculopathy symptoms Plan:: Patient has had significant improvements with overall decrease in his severity of pain there in his low back and did have 100% relief in his tailbone pain following this injection. Patient will return to clinic in 1 month for reevaluation of symptoms and plan of care. I did extension course counselor the patient that currently we are not doing anything with medical marijuana cards and that he can discuss this with his PCP. Patient acknowledges understanding and agrees with plan of care. Patient has been instructed to contact the clinic with any concerns before the next appointment. Dr. Hebert has reviewed this note and agrees with this plan of care. This note was dictated using voice recognition software and make contain errors or omissions. [facility] Disclaimer: The information contained in this section may have been updated after the patient was seen, as this information can be updated by other users. Medical History Decreased sensation of foot Neuropathy Chronic sensorimotor polyneuropathy mainly of demyelinating type, moderate. Coronary artery calcification seen on CAT scan 2021 CTA chest-mild coronary artery calcification Diabetes mellitus, type 2 Hyperlipidemia Hypertension Surgical History H/O arthroscopic knee surgery Family History Father Cancer Brain Ca; Grandmother Cancer Lung Ca; Other Alcoholism Asthma Coronary artery disease Diabetes Hyperlipidemia Hypertension No significant family history Social History Smoking Status: Never smoker alcohol intake: never substance use type: marijuana current occupational status: other Travel in the last 8 weeks: None household members: spouse housing: house marital status: number of children: 7 caffeine: Yes do you feel safe at home: Yes victim of physical abuse: No victim of emotional abuse: No victim of sexual abuse: No would you like helpful sources: No
== END 2023-10-19 23:59 | disposition home or self-care (01) ==
LOC: SC.PAIN 10:14
PROVIDERS: PCP Student in an Organized Health Care Education/Training Program; Visit Provider Nurse Practitioner Family
DX: M51.14 Intervertebral disc disorders with radiculopathy, thoracic region (principal); M51.16 Intervertebral disc disorders with radiculopathy, lumbar region
CPT/HCPCS: 99212; G0463

== ENCOUNTER 2023-11-09 08:53 | Outpatient (CLI) | payer BC, SELFPAY ==
--- NOTE | 2023-11-09 09:03 | XR_ITS ---
FINAL REPORT CLINICAL HISTORY: cough, weight loss FINDINGS: 2 views of the chest were obtained . The heart is normal in size. The mediastinum is within normal limits. The lungs are clear. There is no pneumothorax. Osseous structures are unremarkable. IMPRESSION: No acute cardiopulmonary process. Reviewed, Interpreted and Dictated by Lilian Narvaez MD Transcribed by Dorita Bryant Authenticated and [facility]
[2023-11-09 12:45] LABS: Occult Blood,Stool Negative (Negative)
[2023-11-09 18:01] LABS: Basophils % 0.7 % (0.1-2.0); Eosinophils # 0.1 K/mm3 (0.0-0.4); Eosinophils % 1.9 % (0.1-12.0); Hemoglobin 16.6 g/dL (14.1-18.0); Lymphocytes # 1.1 K/mm3 (0.7-4.5); Lymphocytes % 19.3 % (10-50); Mean Corpuscular Hemoglobin 32.4 pg (27.0-31.2); Mean Corpuscular Volume 101.4 fl (80-94); Mean Platelet Volume 8.8 fl (7.4-10.4); Monocytes # 0.4 K/mm3 (0.1-1.0); Monocytes % 6.8 % (1.7-9.3); Neutrophils # 4.1 K/mm3 (1.8-7.8); Neutrophils % 71.3 % (37.0-80.0); Platelet Count 182 K/mm3 (142-424); Red Blood Count 5.13 M/mm3 (4.60-6.20); Red Cell Distribution Width 14.2 % (11.5-17.5); White Blood Count 5.7 K/mm3 (4.8-10.8)
[2023-11-09 19:30] LABS: Chloride 103 mmol/L (98-107); Potassium 3.9 mmoL/L (3.5-5.1); Sodium 137 mmol/L (136-145)
[2023-11-09 19:32] LABS: Alanine Aminotransferase 24 U/L (12-78); Alkaline Phosphatase 111 U/L (38-126); Aspartate Amino Transferase 24 U/L (17-59); Bilirubin,Total 0.5 mg/dl (0.2-1.3); Blood Urea Nitrogen 19 mg/dl (9-20); Estimated Glomerular Filt Rate 118 ml/min (>60); GFR (African American) 143 ML/MIN (>60)
[2023-11-09 19:33] LABS: Albumin Level 4.8 g/dl (3.5-5.0); Albumin/Globulin Ratio 1.7 (1.1-1.8); Anion Gap 15.9 mEq/L (5-15); Calcium 9.7 mg/dl (8.4-10.2); Carbon Dioxide 22 mmol/L (22.0-30.0); Cholesterol 169 mg/dl (140-200); Globulin 2.8 g/dL (1.3-3.2); Glucose 258 mg/dl (74-100); HDL Cholesterol 56 mg/dl (40-60); Iron 127 ug/dL (49-181); Total Protein,Serum 7.6 g/dl (6.3-8.2); Triglycerides 216 mg/dl (30-150); VLDL Cholesterol 43 mg/dL (0-40)
[2023-11-09 19:44] LABS: Direct LDL Cholesterol 69.18 mg/dL (100-129)
[2023-11-09 19:51] LABS: Hemoglobin A1C 7.7 % (4.0-6.0)
[2023-11-09 19:52] LABS: 25-OH Vitamin D, Total 36.2 ng/mL (30-100)
[2023-11-09 19:55] LABS: Total Iron Binding Capacity 316 ug/dL (261-462)
[2023-11-09 20:06] LABS: Thyroid Stimulating Hormone 3.88 uIU/mL (0.465-4.68)
[2023-11-09 20:10] LABS: Ferritin 337 ng/ml (17.9-464)
[2023-11-10 10:58] LABS: HIV (1&2) Antibody Rapid NON REACTIVE
[2023-11-11 13:04] LABS: HBsAg Screen Negative (Negative); HCV Ab Non Reactive (Non Reactive); Hep A Ab, IGM Negative (Negative); Hep B Core Ab, IgM Negative (Negative)
[2023-11-14 16:43] LABS: Free Testosterone (Direct) 4.9 pg/mL (7.2-24.0); Testosterone, Total, LC/MS 414.7 ng/dL (264.0-916.0)
== END 2023-11-09 23:59 | disposition home or self-care (01) ==
PROVIDERS: PCP Student in an Organized Health Care Education/Training Program; Visit Provider Student in an Organized Health Care Education/Training Program
DX: R05.9 Cough, unspecified (principal); R63.4 Abnormal weight loss; Z68.26 Body mass index [BMI] 26.0-26.9, adult; R19.7 Diarrhea, unspecified; R53.83 Other fatigue; E78.5 Hyperlipidemia, unspecified; Z11.59 Encounter for screening for other viral diseases; Z11.4 Encounter for screening for human immunodeficiency virus [HIV]; E11.9 Type 2 diabetes mellitus without complications; Z79.84 Long term (current) use of oral hypoglycemic drugs
CPT/HCPCS: 84402; 84403; 86703; 71046; 80050; 80053; 80061; 80074; 82272; 82306; 82728; 83036; 83540; 83550; 84443; 85025; 87177; G0328

== ENCOUNTER 2023-12-15 13:51 | Emergency (ER) | payer BC, SELFPAY ==
[2023-12-15] VITALS (9 sets, daily range): BP systolic 123–159; BP diastolic 70–98; PULSE 78–105; RESP 16–18; TEMP 36.7–36.9; O2SAT 95–98; BMI 23.9
--- NOTE | 2023-12-15 14:12 | ED_ITS ---
Discharge Plan Disposition Patient Disposition: Still a Patient Prescriptions Prescriptions: No Action (DME) lancets 31 [place] [facility] [place] Instructions .Route Qty: 100 4RF Rx Instructions: As directed, check BG TID (DME) blood-glucose meter [OneTouch Ultra2 Meter] [facility] [place]ructions .Route Qty: 1 0RF Rx Instructions: As directed polyethylene glycol 3350 [Miralax] 17 gram/dose powder 17 g PO DAILY Qty: 510 0RF Rx Instructions: Take 17 g dissolved in liquid of choice in the morning daily. Especially on warm days when the forge will be very warm. Do follow by increased water throughout the day. sildenafil 25 mg tablet 25 mg PO DAILY PRN (Reason: sexual activity) Qty: 20 0RF Rx Instructions: administer 30 minutes to 4 hours before activity aspirin [Adult Low Dose Aspirin] 81 mg tablet,delayed release (DR/EC) 81 mg PO DAILY Qty: 30 5RF duloxetine 60 mg capsule,delayed release(DR/EC) 60 mg PO BID MDD 120 mg Qty: 60 5RF Jardiance 25 mg tablet 25 mg PO DAILY Qty: 90 3RF (DME) Blood Glucose Test Strip See Rx Instructions .Route Qty: 50 3RF Rx Instructions: To check glucose bid and prn atorvastatin 40 mg tablet 40 mg PO DAILY Qty: 60 2RF lisinopril 5 mg tablet 5 mg PO DAILY Qty: 90 2RF Januvia 100 mg tablet 100 mg PO DAILY Qty: 90 3RF Referrals Follow up/Referrals: July Kang PA [Primary Care Provider] - See instructions Print Language Print Language: Greenlandic Discharge ED Provider: Judy Isidro [facility] [place] HPI General Stated complaint: nose bleed Mode of Arrival: Ambulatory Source of Information: Patient Limitations: No Limitations Time Seen by Provider: 12/15/23 14:12 Description of Symptoms (Recalled from Triage Doc. 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 HE STATES HAS BEEN HAVING NOSE BLEEDS ALL WEEK AND EACH HAS LASTED APPROX 45 MINUTES EACH. PATIENT ALSO REPORTS FEELING LIGHT-HEADED AND HAVING BLURRY VISION. NO ACTIVE BLEEDING NOTED AT THIS TIME HEENT Symptoms (Recalled from RN notes): Yes Resp Symptoms (Recalled from RN notes): No Skin Symptoms (Recalled from RN notes): No MS Symptoms (Recalled from RN notes): No Functional Status (Recalled from RN notes): WNL History of Present Illness Provider Complaint: Patient states that he has had several episodes of nose bleeding on and off this week with each episode lasting awhile States today he was at work and he felt a gush and his nose started bleeding, felt light headed, dizzy, blurred vision and headache. States that he just dont feel right On his way in his nose stopped bleeding but he still just does not feel right Related Data Home Medications ?Medication ?Instructions ?Recorded ?Confirmed atorvastatin 40 mg tablet 40 mg PO DAILY 12/15/23 12/15/23 bisoprolol fumarate 5 mg tablet 5 mg PO DAILY 12/15/23 12/15/23 duloxetine 60 mg capsule,delayed 60 mg PO DAILY 12/15/23 12/15/23 release empagliflozin 25 mg tablet 25 mg PO DAILY 12/15/23 12/15/23 (Jardiance) glipizide 2.5 mg tablet, extended 2.5 mg PO DAILY 12/15/23 12/15/23 release 24 hr lisinopril 5 mg tablet 5 mg PO DAILY 12/15/23 12/15/23 sitagliptin phosphate 100 mg 100 mg PO DAILY 12/15/23 12/15/23 tablet (Januvia) Previous Rx's ?Medication ?Instructions ?Recorded blood-glucose meter (OneTouch #1 ea 02/20/23 Ultra2 Meter) lancets 31 gauge #100 ea 02/20/23 blood sugar diagnostic (Blood #50 ea 06/04/23 Glucose Test strips) Allergies Allergy/AdvReac Type Severity Reaction Status Date / Time metformin AdvReac Gastrointestinal Verified 12/08/23 11:36 Upset Worker's Comp Is this a Worker's Comp case?: No [facility] Disclaimer: The information contained in this section may have been updated after the patient was seen, as this information can be updated by other users. Medical History Decreased sensation of foot Neuropathy Chronic sensorimotor polyneuropathy mainly of demyelinating type, moderate. Coronary artery calcification seen on CAT scan 2021 CTA chest-mild coronary artery calcification Diabetes mellitus, type 2 Hyperlipidemia Hypertension Surgical History H/O arthroscopic knee surgery Family History Father Cancer Brain Ca; Grandmother Cancer Lung Ca; Other Alcoholism Asthma Coronary artery disease Diabetes Hyperlipidemia Hypertension No significant family history Social History Smoking Status: Never smoker alcohol intake: never substance use type: marijuana current occupational status: other Travel in the last 8 weeks: None household members: spouse housing: house marital status: number of children: 7 caffeine: Yes do you feel safe at home: Yes victim of physical abuse: No victim of emotional abuse: No victim of sexual abuse: No would you like helpful sources: No ROS Obtained: Yes All systems reviewed & no additional complaints except as documented and Yes Systems reviewed as appropriate & no additional complaints except as documented Constitutional Constitutional: Reports system reviewed and no additional complaints, except as documented, Reports as per HPI and Reports headache(s) Eyes Eyes: Reports system reviewed and no additional complaints, except as documented, Reports as per HPI and Reports blurry vision ENT Ears, Nose, Mouth, and Throat: Reports system reviewed and no additional complaints, except as documented, Reports as per HPI, Reports dizziness, Reports epistaxis and Reports headache(s) Cardiovascular Cardiovascular: Reports system reviewed and no additional complaints, except as documented and Reports as per HPI Respiratory Respiratory: Reports system reviewed and no additional complaints, except as documented and Reports as per HPI Neurologic Neurologic: Reports dizziness and Reports headache(s) Physical Exam General General appearance: alert and in no apparent distress Expanded ENT Exam Nose exam: Present other (no active bleeding noted at this time) Respiratory Respiratory exam: Present normal lung sounds bilaterally; Absent respiratory distress or wheezes Cardiovascular Cardiovascular exam: Present regular rate, normal rhythm and tachycardia Neurological Exam Neurological exam: Present alert, oriented X3 and normal gait Medical Decision Making Patricio Inquiry Pt receiving controlled substance: No Patricio was queried for this patient: No Vital Signs: 12/15/23 14:00 Temperature 98.3 F Temperature Source Oral Pulse Rate [Right Brachial] 105 H Respiratory Rate 17 Blood Pressure [Right Arm] 159/70 H Blood Pressure Mean [Right Arm] 99 Blood Pressure Source [Right Arm] Automatic Cuff Blood Pressure Position [Right Arm] Sitting 02 Sat by Pulse Oximetry 98 Oxygen Delivery Method Room Air Medical Decision Narrative: Patient states that all week he has been having nose bleeds on and off, states today he had nose bleed at work and then started with bad headache, feeling light headed/dizzy, blurred vision and over all not feeling right so he came i n Patient also reports weight loss of 60+ pounds in last 4mths Nose bleed had stopped prior to arrival and blurry vision has improved but still having a bad headache and feeling light headed discussed with patient and will transfer to the ED for furhter work up and evaluation and patient agreed patient was moved to the ED for further work up and evaluation
--- NOTE | 2023-12-15 14:20 | PC.NURSE ---
PATIENT TO SENT ER PER Analy BRADEN APRN FOR FURTHER EVALUATION. REPORT GIVEN TO DR. BENZ BY Analy BRADEN APRN AND SAIRA ANDRADE RN BY Kala WNITER RN. PATIENT REFUSED WHEELCHAIR TRANSPORT, AMBULATED TO ER WITH [facility] STAFF AT THIS TIME
--- NOTE | 2023-12-15 14:25 | ED_ITS ---
<Statement entered by Irena Bazan DO - 12/15/23 18:31> I was consulted by the FLOR, and we discussed the complexity of the problems being addressed. I approved the treatment and management plan for this patient's care in the emergency department, thus performing a substantive portion of the medical decision making. Irena Bazan DO Discharge Plan Disposition Patient Disposition: Home, Self-Care Condition: Good Prescriptions Prescriptions: No Action (DME) lancets 31 gauge misc See Rx Instructions .Route Qty: 100 4RF Rx Instructions: As directed, check BG TID (DME) blood-glucose meter [OneTouch Ultra2 Meter] Misc See Rx Instructions .Route Qty: 1 0RF Rx Instructions: As directed (DME) Blood Glucose Test Strip See Rx Instructions .Route Qty: 50 3RF Rx Instructions: To check glucose bid and prn atorvastatin 40 mg tablet 40 mg PO DAILY bisoprolol fumarate 5 mg tablet 5 mg PO DAILY Patient Comments: TAKE 1 TABLET BY MOUTH ONCE DAILY glipizide 2.5 mg tablet extended release 24hr 2.5 mg PO DAILY lisinopril 5 mg tablet 5 mg PO DAILY duloxetine 60 mg capsule,delayed release(DR/EC) 60 mg PO DAILY Patient Comments: TAKE 1 CAPSULE BY MOUTH TWICE DAILY FOR CHRONIC BACK PAIN (MAX DAILY DOSE 2 CAPSULES) Januvia 100 mg tablet 100 mg PO DAILY Jardiance 25 mg tablet 25 mg PO DAILY Referrals Follow up/Referrals: Jayy Treviño MD [Physician] - See instructions (Epistaxis) July Kang PA [Primary Care Provider] - See instructions Activity Restrictions/Add. Instructions Additional Instructions/Restrictions: Please utilize Afrin if you have recurrent nosebleed but no more than 3 times a day. If it is unable to be stopped with Afrin and pressure after 15-minute return to the emergency department. Please call in the morning to make an appointment with ear nose and throat for follow-up. Please ask your PCP for an endocrinology referral for specialized management of your diabetes given the environment you work in. Clinical Impressions Clinical Impression: Acute anterior epistaxis Stand Alone Forms Stand Alone Forms: Work/School Release Instructions Patient Instructions: DI for Nosebleed Print Language Print Language: Slovak Discharge ED Provider: Irena Bazan General Adult HPI General Chief complaint: Epistaxis Stated complaint: nose bleed Time Seen by Provider: 12/15/23 14:12 Mode of Arrival: Ambulatory Source of Information: Patient Limitations: No Limitations Description of Symptoms (Recalled from ER Triage Doc. 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 HE STATES HAS BEEN HAVING NOSE BLEEDS ALL WEEK AND EACH HAS LASTED APPROX 45 MINUTES EACH. PATIENT ALSO REPORTS FEELING LIGHT-HEADED AND HAVING BLURRY VISION. NO ACTIVE BLEEDING NOTED AT THIS TIME History of Present Illness HPI narrative: Patient presents for evaluation of epistaxis. Patient states that he has had a daily nosebleed since Thursday of last week. He states that today however it is bled 3 times last just prior to arrival. Patient has past medical history of type 2 diabetes mellitus on Januvia, glipizide and Jardiance hypertension on lisinopril and hyperlipidemia on atorvastatin. Patient denies illicit drug use, snorting anything, alcohol abuse. Patient does report that he has gone from 2 and 35 pounds to 162 pounds in 5 months for unexplained reasons. I do not think the patient has insight that he is on a GLP-1 orally. He did try Mounjaro previously and was intolerant of it. He also had been on metformin previously was also intolerant of that. 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 Has never had this problem previously. Related Data Home Medications ?Medication ?Instructions ?Recorded ?Confirmed atorvastatin 40 mg tablet 40 mg PO DAILY 12/15/23 12/15/23 bisoprolol fumarate 5 mg tablet 5 mg PO DAILY 12/15/23 12/15/23 duloxetine 60 mg capsule,delayed 60 mg PO DAILY 12/15/23 12/15/23 release empagliflozin 25 mg tablet 25 mg PO DAILY 12/15/23 12/15/23 (Jardiance) glipizide 2.5 mg tablet, extended 2.5 mg PO DAILY 12/15/23 12/15/23 release 24 hr lisinopril 5 mg tablet 5 mg PO DAILY 12/15/23 12/15/23 sitagliptin phosphate 100 mg 100 mg PO DAILY 12/15/23 12/15/23 tablet (Januvia) Previous Rx's ?Medication ?Instructions ?Recorded blood-glucose meter (OneTouch #1 ea 02/20/23 Ultra2 Meter) lancets 31 gauge #100 ea 02/20/23 blood sugar diagnostic (Blood #50 ea 06/04/23 Glucose Test strips) Allergies Allergy/AdvReac Type Severity Reaction Status Date / Time metformin AdvReac Gastrointestinal Verified 12/08/23 11:36 Upset [facility] Disclaimer: The information contained in this section may have been updated after the patient was seen, as this information can be updated by other users. Medical History Decreased sensation of foot Neuropathy Chronic sensorimotor polyneuropathy mainly of demyelinating type, moderate. Coronary artery calcification seen on CAT scan 2021 CTA chest-mild coronary artery calcification Diabetes mellitus, type 2 Hyperlipidemia Hypertension Surgical History H/O arthroscopic knee surgery Family History Father Cancer Brain Ca; Grandmother Cancer Lung Ca; Other Alcoholism Asthma Coronary artery disease Diabetes Hyperlipidemia Hypertension No significant family history Social History Smoking Status: Unknown if ever smoked alcohol intake: never substance use type: marijuana current occupational status: other Travel in the last 8 weeks: None household members: spouse housing: house marital status: number of children: 7 caffeine: Yes do you feel safe at home: Yes victim of physical abuse: No victim of emotional abuse: No victim of sexual abuse: No would you like helpful sources: No ROS Obtained: Yes Systems reviewed as appropriate & no additional complaints except as documented Physical Exam General General appearance: alert and in no apparent distress Head Head exam: atraumatic and normal inspection Eye Eye exam: Present normal appearance and EOMI ENT ENT exam: Present normal oropharynx, mucous membranes dry and other (Endoscopic evaluation of the anterior nares shows that there is stigmata of bleeding on the left sided anterior septum but no erosions. Septum is intact. No active bleeding currently.) Neck Neck exam: Present normal inspection and full ROM; Absent trachea midline Chest Chest inspection: Present normal inspection and symmetric chest wall rise Respiratory Respiratory exam: Present normal lung sounds bilaterally Cardiovascular Cardiovascular exam: Present regular rate and normal rhythm Abdominal Exam Abdominal exam: Present soft and normal bowel sounds; Absent tenderness Extremities Exam Extremities exam: Present normal inspection and full ROM Back Exam Back exam: Present normal inspection and full ROM Neurological Exam Neurological exam: Present alert, oriented X3 and CN II-XII intact Psychiatric Psychiatric exam: Present normal affect and normal mood Skin Skin exam: Present warm, dry and normal color Medical Decision Making Medical Records Medical records reviewed: Yes I reviewed the patient's medical records. Patricio Inquiry Pt receiving controlled substance: No Vital Signs: 12/15/23 14:00 12/15/23 14:22 12/15/23 14:25 Temperature 98.3 F 98.4 F Temperature Source Oral Oral Pulse Rate 94 H Pulse Rate [Right Brachial] 105 H 97 H Respiratory Rate 17 16 Blood Pressure 138/98 H Blood Pressure [Right Arm] 159/70 H 138/98 H Blood Pressure Mean Blood Pressure Mean [Right Arm] 99 111 Blood Pressure Source Blood Pressure Source [Right Arm] Automatic Cuff Automatic Cuff Blood Pressure Position Blood Pressure Position [Right Arm] Sitting Sitting 02 Sat by Pulse Oximetry 98 97 97 Oxygen Delivery Method Room Air Room Air 12/15/23 14:30 12/15/23 15:00 12/15/23 15:30 Temperature Temperature Source Pulse Rate 92 H 92 H 78 Pulse Rate [Right Brachial] Respiratory Rate Blood Pressure 138/91 H 126/84 123/88 Blood Pressure [Right Arm] Blood Pressure Mean 98 Blood Pressure Mean [Right Arm] Blood Pressure Source Blood Pressure Source [Right Arm] Blood Pressure Position Blood Pressure Position [Right Arm] 02 Sat by Pulse Oximetry 98 95 96 Oxygen Delivery Method Room Air 12/15/23 16:00 12/15/23 16:30 12/15/23 16:45 Temperature 98.0 F Temperature Source Oral Pulse Rate 84 94 H 84 Pulse Rate [Right Brachial] Respiratory Rate 18 Blood Pressure 154/97 H 143/93 H 154/97 H Blood Pressure [Right Arm] Blood Pressure Mean Blood Pressure Mean [Right Arm] Blood Pressure Source Automatic Cuff Blood Pressure Source [Right Arm] Blood Pressure Position Sitting Blood Pressure Position [Right Arm] 02 Sat by Pulse Oximetry 95 97 Oxygen Delivery Method Room Air Room Air Lab Data Lab results reviewed: Yes I reviewed the patient's lab results. Lab Results 12/15/23 14:51: WBC 5.7, RBC 4.93, Hgb 16.2, Hct 47.8, MCV 96.9 H, MCH 32.8 H, MCHC 33.8, RDW 14.3, Plt Count 174, MPV 7.4, Neut % (Auto) 66.1, Lymph % (Auto) 20.6, [place] % (Auto) 11.4 H, Eos % (Auto) 1.0, Baso % (Auto) 0.9, Neut # (Auto) 3.7, Lymph # (Auto) 1.2, [place] # (Auto) 0.6, Eos # (Auto) 0.1, Baso # (Auto) 0.1, PT 10.3, INR 0.91, APTT 27.9, Sodium 141, Potassium 4.2, Chloride 106, Carbon Dioxide 28, Anion Gap 11.2, BUN 22 H, Creatinine 0.90, Estimated Creat Clear 99, Estimated GFR 88, Est GFR ( Amer) 107, Glucose 156 H, Hemoglobin A1c 7.5 H, Calcium 9.8, Magnesium 2.3, Total Bilirubin 0.7, AST 25, ALT 21, Alkaline Phosphatase 101, Total Protein 7.8, Albumin 4.7, Globulin 3.1, Albumin/Globulin Ratio 1.5, TSH 4.10, Free T4 Index 2.5 L, Thyroxine (T4) 8.0, T3 Uptake 31 12/15/23 14:51 12/15/23 14:51 Orders (Tests/Meds): ED MEDICATIONS Discontinued Medications Generic Name Dose Route Start Last Admin Trade Name Freq PRN Reason Stop Dose Admin Acetaminophen 1,000 mg 12/15/23 14:43 12/15/23 14:55 Acetaminophen 1,000mg/100ml Vial IV 12/15/23 14:44 1,000 mg ONCE ONE Administration Lactated Ringer's 1,000 mls @ 999 mls/hr 12/15/23 14:43 12/15/23 14:55 Lactated Ringer's 1000 Ml Bag IV 12/15/23 15:43 999 mls/hr .Q1H1M ONE Administration Oxymetazoline HCl 1 ml 12/15/23 14:45 12/15/23 14:55 Oxymetazoline Nasal [place] 0.05% 15ml NS 12/15/23 14:46 1 ml ONCE ONE Administration ORDERS Category Date Time Status CBC w/Auto Diff [Complete Blood Count Auto Diff] Stat Lab 12/15/23 14:51 Completed CMP [Comprehensive Metabolic Panel] Stat Lab 12/15/23 14:51 Completed Hemoglobin A1C Stat Lab 12/15/23 14:51 Completed INR [Prothrombin Time INR] Stat Lab 12/15/23 14:51 Completed Magnesium Stat Lab 12/15/23 14:51 Completed PTT [Activated Partial Thrombo Time] Stat Lab 12/15/23 14:51 Completed Thyroid Panel Stat Lab 12/15/23 14:51 Completed Medical Decision Narrative: In summary patient is a 52-year-old male who presents to the emergency department for evaluation of epistaxis. Patient is hemodynamically stable upon arrival, afebrile. Physical exam is remarkable for stigmata of bleeding in the left anterior nasal septum but no evidence of trauma cartilage exposure or active bleeding noted.. Differential diagnosis includes simple epistaxis versus neoplastic process given the weight loss although less likely, dehydration due to polypharmacy including Januvia Jardiance lisinopril, and dry nasal mucosa due to the hot dry environment in which the patient currently works . Initial workup will be conducted with hematologic labs. Initial interventions include crystalloid bolus and Afrin application. I considered Cetacaine spray and cauterizing with silver nitrate however patient is not actively bleeding so that was deferred. Initial workup reviewed by me shows that his hematologic labs are nonactionable. Upon repeat evaluation patient has had no recurrence of epistaxis while in the emergency department. Given this patient is given instructions on how to use Afrin and to contact ear nose and throat for formal evaluation and possible cauterization. Patient given strict return precautions Critical Care Critical Care Time Critical Care Time: No
[2023-12-15] MEDS: LACTATED RINGERS 1000ML 1,000 ML 999 ML IV (14:55)
[2023-12-15] MEDS: ACETAMINOPHEN 1,000MG/100ML VIAL 1000 MG IV (14:55)
[2023-12-15] MEDS: OXYMETAZOLINE NASAL SPRAY 0.05% 15ML NS (14:55)
[2023-12-15 15:00] LABS: Basophils # 0.1 K/mm3 (0-0.2); Basophils % 0.9 % (0.1-2.0); Eosinophils # 0.1 K/mm3 (0.0-0.4); Hematocrit 47.8 % (42.0-52.0); Hemoglobin 16.2 g/dL (14.1-18.0); Lymphocytes # 1.2 K/mm3 (0.7-4.5); Lymphocytes % 20.6 % (10-50); Mean Corpuscular HGB Conc 33.8 g/dL (31.8-35.4); Mean Corpuscular Hemoglobin 32.8 pg (27.0-31.2); Mean Corpuscular Volume 96.9 fl (80-94); Mean Platelet Volume 7.4 fl (7.4-10.4); Monocytes # 0.6 K/mm3 (0.1-1.0); Monocytes % 11.4 % (1.7-9.3); Neutrophils # 3.7 K/mm3 (1.8-7.8); Neutrophils % 66.1 % (37.0-80.0); Platelet Count 174 K/mm3 (142-424); Red Blood Count 4.93 M/mm3 (4.60-6.20); Red Cell Distribution Width 14.3 % (11.5-17.5); White Blood Count 5.7 K/mm3 (4.8-10.8)
[2023-12-15 15:18] LABS: Albumin Level 4.7 g/dl (3.5-5.0); Chloride 106 mmol/L (98-107); Sodium 141 mmol/L (136-145)
[2023-12-15 15:19] LABS: Potassium 4.2 mmoL/L (3.5-5.1)
[2023-12-15 15:20] LABS: Activated Partial Thrombo Time 27.9 seconds (22.8-30.6); INR 0.91 (0.9-1.1); Prothrombin Time 10.3 seconds (10.1-12.5)
[2023-12-15 15:21] LABS: Alanine Aminotransferase 21 U/L (12-78); Albumin/Globulin Ratio 1.5 (1.1-1.8); Alkaline Phosphatase 101 U/L (38-126); Anion Gap 11.2 mEq/L (5-15); Aspartate Amino Transferase 25 U/L (17-59); Bilirubin,Total 0.7 mg/dl (0.2-1.3); Blood Urea Nitrogen 22 mg/dl (9-20); Carbon Dioxide 28 mmol/L (22.0-30.0); Creatinine Clearance Estimated 99 mL/min (50-200); Estimated Glomerular Filt Rate 88 ml/min (>60); GFR (African American) 107 ML/MIN (>60); Globulin 3.1 g/dL (1.3-3.2); Total Protein,Serum 7.8 g/dl (6.3-8.2)
[2023-12-15 15:22] LABS: Calcium 9.8 mg/dl (8.4-10.2); Glucose 156 mg/dl (74-100); Magnesium 2.3 mg/dl (1.6-2.3)
[2023-12-15 15:43] LABS: Triiodothryronine (T3) Uptake 31 % (23.5-40.5)
[2023-12-15 15:44] LABS: Free Thyroxine Index 2.5 ug/dL (5.93-13.13)
[2023-12-15 15:50] LABS: Hemoglobin A1C 7.5 % (4.0-6.0)
== END 2023-12-15 16:52 | disposition home or self-care (01) ==
LOC: UTC 13:53 → ER 14:20
PROVIDERS: Physician Assistant; Emergency Provider Emergency Medicine; PCP Student in an Organized Health Care Education/Training Program
DX: R04.0 Epistaxis (principal); E11.40 Type 2 diabetes mellitus with diabetic neuropathy, unspecified; I11.9 Hypertensive heart disease without heart failure; I25.10 Atherosclerotic heart disease of native coronary artery without angina pectoris; E78.5 Hyperlipidemia, unspecified; Z79.84 Long term (current) use of oral hypoglycemic drugs
CPT/HCPCS: 80050; 80053; 83036; 83735; 84436; 84443; 84479; 85025; 85610; 85730; 96361; 96374; 99284; J0131; J7120

== ENCOUNTER 2023-12-23 10:09 | Day surgery (SDC) | payer BC, SELFPAY ==
[2023-12-22 11:04] VITALS: BMI 23.9
[2023-12-23] VITALS (7 sets, daily range): BP systolic 115–143; BP diastolic 70–93; PULSE 64–79; RESP 14–18; TEMP 36.1–36.4; O2SAT 97–100
[2023-12-23] MEDS: LACTATED RINGERS 1000ML 1,000 ML 25 ML IV (10:45)
[2023-12-23 10:46] LABS: POC Glucose,Bedside 117 (70-110)
--- NOTE | 2023-12-23 11:11 | P.PNANES_ITS ---
[facility] Disclaimer: The information contained in this section may have been updated after the patient was seen, as this information can be updated by other users. Medical History Back pain Herniated disc Left-sided epistaxis Decreased sensation of foot Neuropathy Coronary artery calcification seen on CAT scan Diabetes mellitus, type 2 Hyperlipidemia Hypertension Surgical History H/O arthroscopic knee surgery Family History Father Cancer Brain Ca; Grandmother Cancer Lung Ca; Other Alcoholism Asthma Coronary artery disease Diabetes Hyperlipidemia Hypertension No significant family history Social History (Updated 12/23/23 @ 10:31 by Melanie Nickerson RN) Smoking Status: Never smoker alcohol intake: never substance use type: marijuana current occupational status: employed Travel in the last 8 weeks: None household members: spouse housing: house marital status: number of children: 7 caffeine: No do you feel safe at home: Yes victim of physical abuse: No victim of emotional abuse: No victim of sexual abuse: No would you like helpful sources: No [facility] Anesthesia Checklist Patient Identification Patient Identification: Arm Band Structural Data Admitted From: Home Planned Operative Procedure/s: Colonoscopy Consent for Planned Operative Procedure(s) Verified: Yes Verified Documents: Surgical Consent and History and Physical NPO Status Verified Time NPO: 00:00 Additional verifications Anesthesia Reactions: No Hx Blood Transfusions: No Blood Transfusion Reaction: No Airway Assessment Mallampati Score:: Class II C-Spine Mobility Assessed: Yes TMJ Mobility Assessed: Yes Dentition: Edentulous Neurological Assessment Level of Consciousness: Awake, Alert and Appropriate Anesthesia Plan Anesthesia Risk discussed: Yes Anesthesia Plan: Verified ASA Class: II Anesthesia Type: MAC
--- NOTE | 2023-12-23 11:20 | HMH.SCOPE ---
Procedure: Date: 12/23/23 Patient Date of :: 1970 Procedure Performed:: Colonoscopy Indications:: The patient is a 53-year-old who presents for screening colonoscopy. The patient previously had a colonoscopy attempt by Dr. Brown but the quality of the bowel preparation was inadequate. The patient reports a history of chronic diarrhea. Performing Provider:: Suresh Zuleta MD Referring Provider:: Edith Torres APRN Sedation:: See RN record Procedure:: After placing the patient in the left lateral decubitus position, the colonoscopy was gently inserted into the rectum and under direct visualization advanced to the cecum which was identified by transillumination in the right lower quadrant, identification of the ileocecal valve, appendiceal orifice, and cecal strap. Color, texture, mucosa, and anatomy of the colon were carefully examined with the scope. Findings:: The quality of the bowel preparation was poor in the cecum, fair to poor from the ascending colon to the descending colon, the sigmoid colon was poor (preparation characterized by solid stool material and partially digested food substance that could not be suctioned out). Upon irrigating the ascending colon there was diffuse erythema. Biopsies were obtained with a cold forceps for histology. The sigmoid colon was somewhat tortuous. On retroflexion view of the rectum internal hemorrhoids were seen. Impression: Erythematous mucosa of the ascending colon Inadequate bowel preparation for screening purposes. Recommendations:: Await pathology results Follow-up in GI office as previously scheduled for treatment of constipation Will discuss with patient alternate methods of colorectal cancer screening since it appears it is difficult to adequately bowel prep the patient for colonoscopy Complications:: none Estimated blood obtained (mL): 0 Colonoscopy Component Colonoscopy Component Was a colonoscopy performed during today's procedure?: Yes Recommended follow up colonoscopy of at least 10 years?: Yes
== END 2023-12-23 12:05 | disposition home or self-care (01) ==
PROVIDERS: PCP Student in an Organized Health Care Education/Training Program; Visit Provider Internal Medicine
PROC: (CPT 45380; principal; 2023-12-23 11:00)
DX: K59.00 Constipation, unspecified (principal); Z12.11 Encounter for screening for malignant neoplasm of colon
CPT/HCPCS: 45380; 82962; J7120

== ENCOUNTER 2024-01-04 19:24 | Emergency (ER) | payer BC, SELFPAY ==
[2024-01-04] VITALS (7 sets, daily range): BP systolic 138–147; BP diastolic 85–96; PULSE 86–97; RESP 12–17; TEMP 36.9–37.1; O2SAT 96–99; BMI 24.2
--- NOTE | 2024-01-04 19:46 | HMH.EDGENADL ---
Discharge Plan Disposition Patient Disposition: Home, Self-Care Condition: Good Prescriptions Prescriptions: New oxycodone 5 mg tablet 5 mg PO Q8H PRN (Reason: pain) Qty: 12 0RF ondansetron 4 mg tablet,disintegrating 4 mg PO Q8H PRN (Reason: nausea and vomiting) 4 Days Qty: 12 0RF No Action (DME) lancets 31 gauge misc See Rx Instructions .Route Qty: 100 4RF Rx Instructions: As directed, check BG TID (DME) blood-glucose meter [OneTouch Ultra2 Meter] Misc See Rx Instructions .Route Qty: 1 0RF Rx Instructions: As directed (DME) Blood Glucose Test Strip See Rx Instructions .Route Qty: 50 3RF Rx Instructions: To check glucose bid and prn aspirin 81 mg Capsule 81 mg PO DAILY atorvastatin 40 mg tablet 40 mg PO DAILY lisinopril 5 mg tablet 5 mg PO DAILY duloxetine 60 mg capsule,delayed release(DR/EC) 60 mg PO BID Patient Comments: TAKE 1 CAPSULE BY MOUTH TWICE DAILY FOR CHRONIC BACK PAIN (MAX DAILY DOSE 2 CAPSULES) Januvia 100 mg tablet 100 mg PO DAILY Referrals Follow up/Referrals: July Kang PA [Primary Care Provider] - See instructions Activity Restrictions/Add. Instructions Additional Instructions/Restrictions: You were evaluated in the emergency department today and diagnosed with pancreatitis. Please package pick up your prescriptions for medications at the pharmacy and take them as needed for symptoms. Do not drive or operate heavy machinery while taking narcotic pain medication. Make sure that you stay hydrated. Eat a bland diet. I recommend starting out with a liquid diet and advancing as tolerated. Follow-up closely with your primary care provider for reassessment. Return to the emergency department for new or worsening symptoms Clinical Impressions Clinical Impression: Acute pancreatitis, Nausea, vomiting and diarrhea Stand Alone Forms Stand Alone Forms: Work/School Release Instructions Patient Instructions: Clear Liquid Diet, DI for Pancreatitis, DI for Nausea -- Adult, Full Liquid Diet Print Language Print Language: Armenian Discharge ED Provider: Irena Bazan General Adult HPI General Chief complaint: Weakness Stated complaint: vomiting body ache dizziness Time Seen by Provider: 01/04/24 19:29 Mode of Arrival: Ambulatory Source of Information: Patient Limitations: No Limitations Description of Symptoms (Recalled from ER Triage Doc. by RN): Pt states he had an episode of vomiting this morning, rested throughout the day, woke up and feels very weak with intermittent abdominal cramping. No CP or SOA. History of Present Illness HPI narrative: This patient is a 53-year-old male with a history of hypertension, hyperlipidemia, type 2 diabetes, CAD, peripheral neuropathy presented to the emergency department for evaluation with concern for nausea, vomiting, diarrhea, and weakness. Patient states that this morning at work, he started having vomiting with nonbloody nonbilious emesis. He also then started having nonbloody diarrhea with multiple loose watery stools. He notes that he went home, went to sleep, and when he woke up he felt very weak with intermittent abdominal cramping. He also states that he feels lightheaded. He states overall he generally feels unwell. He does note that he had an unintentional weight loss over the last several months, which has been seen closely by his primary care provider. He notes that they thought it was because of his diabetes medication. On medical record review, it looks like he was on Mounjaro but that was stopped. After stopping, his PCP noted that his weight had gone back up. He notes that he had a colonoscopy but never got the results. I reviewed medical records and noted that he has had colonoscopy in the past with GI 12/23/2023, but had insufficient prep. It was noted that he was not interested in rescheduling a colonoscopy. Related Data Home Medications ?Medication ?Instructions ?Recorded ?Confirmed atorvastatin 40 mg tablet 40 mg PO DAILY 12/15/23 12/23/23 duloxetine 60 mg capsule,delayed 60 mg PO BID 12/15/23 12/23/23 release lisinopril 5 mg tablet 5 mg PO DAILY 12/15/23 12/23/23 sitagliptin phosphate 100 mg 100 mg PO DAILY 12/15/23 12/23/23 tablet (Januvia) aspirin 81 mg capsule 81 mg PO DAILY 12/23/23 12/23/23 Previous Rx's ?Medication ?Instructions ?Recorded blood-glucose meter (OneTouch #1 ea 02/20/23 Ultra2 Meter) lancets 31 gauge #100 ea 02/20/23 blood sugar diagnostic (Blood #50 ea 06/04/23 Glucose Test strips) ondansetron 4 mg disintegrating 4 mg PO Q8H PRN nausea and 01/04/24 tablet vomiting 4 days #12 tabs oxycodone 5 mg tablet 5 mg PO Q8H PRN pain #12 tabs 01/04/24 Allergies Allergy/AdvReac Type Severity Reaction Status Date / Time metformin AdvReac Gastrointestinal Verified 12/23/23 10:26 Upset [facility] Disclaimer: The information contained in this section may have been updated after the patient was seen, as this information can be updated by other users. Medical History Back pain Herniated disc Left-sided epistaxis Decreased sensation of foot Neuropathy Coronary artery calcification seen on CAT scan Diabetes mellitus, type 2 Hyperlipidemia Hypertension Surgical History H/O arthroscopic knee surgery Family History Father Cancer Grandmother Cancer Other Alcoholism Asthma Coronary artery disease Diabetes Hyperlipidemia Hypertension No significant family history Social History Smoking Status: Never smoker alcohol intake: never substance use type: marijuana current occupational status: employed Travel in the last 8 weeks: None household members: spouse housing: house marital status: number of children: 7 caffeine: No do you feel safe at home: Yes victim of physical abuse: No victim of emotional abuse: No victim of sexual abuse: No would you like helpful sources: No ROS Obtained: Yes All systems reviewed & no additional complaints except as documented Physical Exam General General appearance: alert and in no apparent distress Head Head exam: atraumatic and normocephalic Eye Eye exam: Present normal appearance, PERRL and EOMI ENT ENT exam: Present normal exam, normal oropharynx, mucous membranes moist and normal external ear exam Neck Neck exam: Present normal inspection, full ROM and trachea midline; Absent tenderness Chest Chest inspection: Present normal inspection and symmetric chest wall rise; Absent tenderness Respiratory Respiratory exam: Present normal lung sounds bilaterally; Absent respiratory distress, wheezes, stridor or accessory muscle use Cardiovascular Cardiovascular exam: Present regular rate and normal rhythm Abdominal Exam Abdominal exam: Present soft; Absent distention, tenderness or guarding Extremities Exam Extremities exam: Present normal inspection, full ROM and normal capillary refill; Absent tenderness or edema Back Exam Back exam: Present normal inspection and full ROM; Absent tenderness Neurological Exam Neurological exam: Present alert, oriented X3, CN II-XII intact and normal gait; Absent motor sensory deficit Psychiatric Psychiatric exam: Present normal affect and normal mood Skin Skin exam: Present warm and dry Medical Decision Making Medical Records Medical records reviewed: Yes I reviewed the patient's medical records. Patricio Inquiry Pt receiving controlled substance: Yes Patricio was queried for this patient: Yes Risks and benefits of using a controlled substance: were discussed with pt by me Vital Signs: 01/04/24 19:25 01/04/24 20:00 01/04/24 20:30 Temperature 98.8 F Temperature Source Oral Pulse Rate 97 H 88 Pulse Rate [Left] 95 H Respiratory Rate 17 12 Blood Pressure 140/85 143/89 H Blood Pressure [Right Arm] 143/95 H Blood Pressure Mean [Right Arm] 111 Blood Pressure Source Blood Pressure Position Blood Pressure Position [Right Arm] Sitting 02 Sat by Pulse Oximetry 99 97 97 Oxygen Delivery Method Room Air 01/04/24 21:00 01/04/24 21:30 01/04/24 22:00 Temperature Temperature Source Pulse Rate 86 89 97 H Pulse Rate [Left] Respiratory Rate 14 13 14 Blood Pressure 147/91 H 138/91 H 146/96 H Blood Pressure [Right Arm] Blood Pressure Mean [Right Arm] Blood Pressure Source Blood Pressure Position Blood Pressure Position [Right Arm] 02 Sat by Pulse Oximetry 99 97 98 Oxygen Delivery Method 01/04/24 22:32 Temperature 98.4 F Temperature Source Oral Pulse Rate 97 H Pulse Rate [Left] Respiratory Rate 14 Blood Pressure 146/96 H Blood Pressure [Right Arm] Blood Pressure Mean [Right Arm] Blood Pressure Source Automatic Cuff Blood Pressure Position Sitting Blood Pressure Position [Right Arm] 02 Sat by Pulse Oximetry Oxygen Delivery Method Room Air Lab Data Lab results reviewed: Yes I reviewed the patient's lab results. Lab Results 01/04/24 19:38: VBG pH 7.40, VBG pCO2 34.6 L, VBG pO2 48.9 H, VBG HCO3 20.9 L, VBG Total CO2 22.0 L, VBG O2 Saturation 84.1 H, VBG Base Excess -3.9 L, VBG Lactic Acid 3.3 H 01/04/24 19:48: WBC 6.4, RBC 5.45, Hgb 17.4, Hct 54.4 H, MCV 99.8 H, MCH 32.0 H, MCHC 32.0, RDW 14.1, Plt Count 201, MPV 7.7, Neut % (Auto) 69.1, Lymph % (Auto) 20.4, [place] % (Auto) 8.6, Eos % (Auto) 0.9, Baso % (Auto) 1.0, Neut # (Auto) 4.4, Lymph # (Auto) 1.3, [place] # (Auto) 0.6, Eos # (Auto) 0.1, Baso # (Auto) 0.1, Sodium 136, Potassium 4.1, Chloride 104, Carbon Dioxide 24, Anion Gap 12.1, BUN 18, Creatinine 1.00, Estimated Creat Clear 89, Estimated GFR 78, Est GFR ( Amer) 94, Glucose 268 H, Calcium 9.3, Total Bilirubin 0.8, AST 29, ALT 33, Alkaline Phosphatase 82, Total Protein 7.7, Albumin 4.6, Globulin 3.1, Albumin/Globulin Ratio 1.5, Lipase 855 H, TSH 3.69, Thyroxine (T4) 9.4 01/04/24 19:57: SARS-CoV-2 (PCR) Not detected, Influenza A Untype (PCR) Not detected, Influenza Type B (PCR) Not detected 01/04/24 20:46: Urine Color Yellow, Urine Appearance Clear, Urine pH 6.0, Ur Specific [place] >= 1.030, Urine Protein Negative, Urine Glucose (UA) 2+, Urine Ketones Trace, Urine Blood Negative, Urine Nitrate Negative, Urine Bilirubin Negative, Urine Urobilinogen 0.2, Ur Leukocyte Esterase Negative, Urine WBC 3-5, Ur Squamous Epith Cells 3-5, Urine Bacteria 1+, Urine Mucus 1+ 01/04/24 19:48 01/04/24 19:48 Orders (Tests/Meds): ED MEDICATIONS Discontinued Medications Generic Name Dose Route Start Last Admin Trade Name Freq PRN Reason Stop Dose Admin Lactated Ringer's 1,000 mls @ 999 mls/hr 01/04/24 19:38 01/04/24 19:50 Lactated Ringer's 1000 Ml Bag IV 01/04/24 20:38 999 mls/hr .Q1H1M ONE Administration Iopamidol 75 ml 01/04/24 20:41 01/04/24 20:42 Iopamidol-370 (76%);100ml Bottle IV 01/04/24 20:42 75 ml ONCE ONE Administration Ketorolac Tromethamine 15 mg 01/04/24 19:38 01/04/24 19:54 Ketorolac 30mg/Ml Vial IV 01/04/24 19:39 15 mg ONCE ONE Administration Ondansetron HCl 4 mg 01/04/24 19:38 01/04/24 19:54 Ondansetron 4mg/2ml Vial IV 01/04/24 19:39 4 mg ONCE ONE Administration Sodium Chloride 10 ml 01/04/24 20:41 01/04/24 20:42 Sodium Chloride 0.9% 10ml Syr (Rad Only) IV 02/03/24 20:40 10 ml NEEDED PRN Administration Maintain IV Site ORDERS Category Date Time Status CT abdomen pelvis w con Stat Cat Scan 01/04/24 20:28 Completed Complete Blood Count Auto Diff Stat Lab 01/04/24 19:48 Completed Comprehensive Metabolic Panel Stat Lab 01/04/24 19:48 Completed Lipase Stat Lab 01/04/24 19:48 Completed Rapid PCR Covid and Flu A/B Stat Lab 01/04/24 19:57 Completed T4 (Thyroxine) Stat Lab 01/04/24 19:48 Completed TSH [Thyroid Stimulating Hormone] Stat Lab 01/04/24 19:48 Completed UA [Urinalysis and Microscopic] Stat Lab 01/04/24 20:46 Completed VBG [Venous Blood Gas] Stat RT 01/04/24 19:38 Completed Medical Decision Narrative: In summary, this patient is a 53-year-old male presenting to the Emergency Department for evaluation of nausea, vomiting, diarrhea, and abdominal cramp. Differential diagnoses considered include but are not limited to viral gastroenteritis, bacterial enteritis, dehydration, pancreatitis, cholecystitis, appendicitis. Ruling out the most morbid conditions drove assessment. It should be noted patient's history includes hypertension, hyperlipidemia, diabetes, CAD which may or may not be at goal therapy. This complicates all aspects of care by increasing patient's risk for morbidity. I reviewed patient's past medical records and noted his previous PCP and GI evaluations as per HPI. I noted his previous colonoscopy which was insufficient for screening. Also noted his weight loss, which they felt was due to Mounjaro. On exam, the patient is lying in bed in no acute distress with benign abdominal exam. He has no localizable tenderness. Workup included CBC, CMP, VBG, lactic acid, lipase, urinalysis, TSH, T4, viral swab, and diarrhea panel. He was given a bolus of IV fluids as well as IV Toradol and Zofran for symptomatic improvement. Labs demonstrated significantly elevated lipase without significant leukocytosis or elevation lactic acid. He has no known history of alcohol abuse or prior bouts of pancreatitis. Liver enzymes and bilirubin are normal. given acute pancreatitis, CT scan was ordered to evaluate for potential complication. I independently interpreted CT scan prior to the radiologist read and noted no obvious pancreatic abscess. Please see their read for final interpretation. On reassessment, the patient is resting comfortably with improvement in symptoms. He states he is feeling a lot better. He is able to tolerate oral intake. At this time, I feel that symptoms are related to acute pancreatitis, but no findings that would suggest severe pancreatitis or significant complication on labs or imaging. Since he is able to tolerate oral intake and pain is controlled, patient was deemed to be appropriate for discharge home after shared decision making conversation was had. He was given instructions for bowel rest, prescriptions for oxycodone and Zofran, and strict return precautions. He was discharged after all questions were answered Critical Care Critical Care Time Critical Care Time: No
[2024-01-04] MEDS: LACTATED RINGERS 1000ML 1,000 ML 999 ML IV (19:50)
[2024-01-04] MEDS: ONDANSETRON 4MG/2ML VIAL 4 MG IV (19:54)
[2024-01-04] MEDS: KETOROLAC 30MG/ML VIAL 15 MG IV (19:54)
[2024-01-04 20:01] LABS: VBG Base Excess -3.9 mmol/L (-2.4-2.3); VBG HCO3 20.9 mmol/L (23-30); VBG Oxygen Saturation 84.1 % (50-70); VBG PCO2 34.6 mmol/L (35-51); VBG PO2 48.9 mmol/L (28-40)
[2024-01-04 20:02] LABS: Lactate Venous 3.3 mmol/L (0.4-2.0)
[2024-01-04 20:04] LABS: Coronavirus 19, PCR Not Detected (NotDetected); Influenza A, PCR Not Detected (NotDetected); Influenza B, PCR Not Detected (NotDetected)
[2024-01-04 20:14] LABS: Basophils # 0.1 K/mm3 (0-0.2); Eosinophils # 0.1 K/mm3 (0.0-0.4); Eosinophils % 0.9 % (0.1-12.0); Hematocrit 54.4 % (42.0-52.0); Hemoglobin 17.4 g/dL (14.1-18.0); Lymphocytes # 1.3 K/mm3 (0.7-4.5); Lymphocytes % 20.4 % (10-50); Mean Corpuscular Volume 99.8 fl (80-94); Mean Platelet Volume 7.7 fl (7.4-10.4); Monocytes # 0.6 K/mm3 (0.1-1.0); Monocytes % 8.6 % (1.7-9.3); Neutrophils # 4.4 K/mm3 (1.8-7.8); Neutrophils % 69.1 % (37.0-80.0); Platelet Count 201 K/mm3 (142-424); Red Blood Count 5.45 M/mm3 (4.60-6.20); Red Cell Distribution Width 14.1 % (11.5-17.5); White Blood Count 6.4 K/mm3 (4.8-10.8)
[2024-01-04 20:16] LABS: Albumin Level 4.6 g/dl (3.5-5.0); Chloride 104 mmol/L (98-107); Potassium 4.1 mmoL/L (3.5-5.1); Sodium 136 mmol/L (136-145)
[2024-01-04 20:19] LABS: Alanine Aminotransferase 33 U/L (12-78); Albumin/Globulin Ratio 1.5 (1.1-1.8); Alkaline Phosphatase 82 U/L (38-126); Anion Gap 12.1 mEq/L (5-15); Aspartate Amino Transferase 29 U/L (17-59); Bilirubin,Total 0.8 mg/dl (0.2-1.3); Blood Urea Nitrogen 18 mg/dl (9-20); Calcium 9.3 mg/dl (8.4-10.2); Carbon Dioxide 24 mmol/L (22.0-30.0); Creatinine Clearance Estimated 89 mL/min (50-200); Estimated Glomerular Filt Rate 78 ml/min (>60); GFR (African American) 94 ML/MIN (>60); Globulin 3.1 g/dL (1.3-3.2); Glucose 268 mg/dl (74-100); Total Protein,Serum 7.7 g/dl (6.3-8.2)
[2024-01-04 20:26] LABS: Lipase 855 U/L (23-300)
--- NOTE | 2024-01-04 20:28 | CT_ITS ---
PROCEDURE INFORMATION: Exam: CT Abdomen And Pelvis With Contrast Exam date and time: 01/04/2024 8:41 PM Age: 53 years old Clinical indication: Abdominal pain; Additional info: Abd pain/n/v/can, elevated lipase TECHNIQUE: Imaging protocol: Computed tomography of the abdomen and pelvis with contrast. Radiation optimization: All CT scans at this facility use at least one of these dose optimization techniques: automated exposure control; mA and/or kV adjustment per patient size (includes targeted exams where dose is matched to clinical indication); or iterative reconstruction. Contrast material: ISOVUE; Contrast volume: 75 ml; Contrast route: IV; COMPARISON: CT ABDOMEN PELVIS W CON 06/06/2020 2:39 PM FINDINGS: Lungs: Lung bases are clear. Liver: Normal. No mass. Gallbladder and biliary ducts: Normal. No calcified stones. No ductal dilation. Pancreas: Normal. No ductal dilation. Spleen: Normal. No splenomegaly. Adrenal glands: Normal. No mass. Kidneys and ureters: Normal. No hydronephrosis. Stomach and bowel: Unremarkable. No obstruction. No mucosal thickening. Appendix: Appendix is normal. No evidence of appendicitis. Intraperitoneal space: Unremarkable. No free air. No significant fluid collection. Vasculature: Unremarkable. No abdominal aortic aneurysm. Lymph nodes: Unremarkable. No enlarged lymph nodes. Urinary bladder: Unremarkable as visualized. Reproductive: Unremarkable as visualized. Bones/joints: Unremarkable. No acute fracture. Soft tissues: Unremarkable. IMPRESSION: No acute findings.
--- NOTE | 2024-01-04 20:28 | PC.NURSE ---
Critical received from lab of patient lipase 038
[2024-01-04 20:35] LABS: T4 (Thyroxine) 9.4 ug/dl (5.53-11.0)
[2024-01-04] MEDS: SODIUM CHLORIDE 0.9% 10ML SYR (RAD ONLY) 10 ML IV (20:42)
[2024-01-04] MEDS: IOPAMIDOL-370 (76%);100ML BOTTLE 75 ML IV (20:42)
[2024-01-04 20:49] LABS: Thyroid Stimulating Hormone 3.69 uIU/mL (0.465-4.68)
[2024-01-04 20:59] LABS: Microscopic, Urine URINE MICROSCOPIC (MICROSCOPIC)
[2024-01-04 21:01] LABS: Appearance,Urine CLEAR (Clear); Bilirubin,Urine Negative (Negative); Blood, Urine Negative (Negative); Color,Urine YELLOW (Yellow); Glucose,Urine (UA) 2+ (Negative); Ketones,Urine TRACE (Negative); Leukocyte Esterase,Urine Negative (Negative); Nitrate,Urine Negative (Negative); Protein,Urine Negative (Negative); Specific Gravity, Urine >= 1.030 (1.005-1.030); Urobilinogen,Urine 0.2 EU/dl (0.2)
[2024-01-04 21:13] LABS: Bacteria,Urine 1+ /lpf; Mucus,Urine 1+ /lpf
--- NOTE | 2024-01-04 21:47 | PC.NURSE ---
Pt given PO fluids, tolerating well
== END 2024-01-04 22:33 | disposition home or self-care (01) ==
PROVIDERS: Emergency Provider Emergency Medicine; PCP Student in an Organized Health Care Education/Training Program
DX: K85.90 Acute pancreatitis without necrosis or infection, unspecified (principal); R11.2 Nausea with vomiting, unspecified; R19.7 Diarrhea, unspecified; R53.1 Weakness
CPT/HCPCS: 74177; 80050; 80053; 81001; 82803; 83690; 84436; 84443; 85025; 87636; 96361; 96374; 96375; 99285; J1885; J2405; J7120; Q9967

== ENCOUNTER 2024-01-07 14:32 | Outpatient (CLI) | payer BC, SELFPAY ==
--- NOTE | 2024-01-07 14:35 | XR_ITS ---
FINAL REPORT CLINICAL HISTORY: cough, hemoptysis COMPARISON: 03/09/2022 FINDINGS: TWO-VIEW CHEST The heart size is normal. The mediastinum is normal. The lungs are clear. There is no pneumothorax. IMPRESSION: No acute cardiopulmonary process. Reviewed, Interpreted and Dictated by Willie Ramirez MD Transcribed by Mirian Glez Authenticated and [facility]
[2024-01-07 18:27] LABS: Basophils % 0.7 % (0.1-2.0); Eosinophils % 0.4 % (0.1-12.0); Hematocrit 51.2 % (42.0-52.0); Hemoglobin 16.7 g/dL (14.1-18.0); Lymphocytes # 1.1 K/mm3 (0.7-4.5); Lymphocytes % 19.9 % (10-50); Mean Corpuscular HGB Conc 32.6 g/dL (31.8-35.4); Mean Corpuscular Hemoglobin 32.1 pg (27.0-31.2); Mean Corpuscular Volume 98.6 fl (80-94); Mean Platelet Volume 8.1 fl (7.4-10.4); Monocytes # 0.5 K/mm3 (0.1-1.0); Monocytes % 9.1 % (1.7-9.3); Neutrophils % 69.9 % (37.0-80.0); Platelet Count 200 K/mm3 (142-424); Red Blood Count 5.19 M/mm3 (4.60-6.20); Red Cell Distribution Width 14.1 % (11.5-17.5); White Blood Count 5.7 K/mm3 (4.8-10.8)
[2024-01-07 18:36] LABS: Alanine Aminotransferase 19 U/L (12-78); Albumin Level 4.5 g/dl (3.5-5.0); Albumin/Globulin Ratio 1.5 (1.1-1.8); Alkaline Phosphatase 83 U/L (38-126); Anion Gap 14.6 mEq/L (5-15); Aspartate Amino Transferase 25 U/L (17-59); Bilirubin,Total 0.8 mg/dl (0.2-1.3); Blood Urea Nitrogen 18 mg/dl (9-20); Calcium 9.8 mg/dl (8.4-10.2); Carbon Dioxide 24 mmol/L (22.0-30.0); Chloride 104 mmol/L (98-107); Estimated Glomerular Filt Rate 88 ml/min (>60); GFR (African American) 106 ML/MIN (>60); Globulin 3.1 g/dL (1.3-3.2); Glucose 189 mg/dl (74-100); Lipase 440 U/L (23-300); Potassium 4.6 mmoL/L (3.5-5.1); Sodium 138 mmol/L (136-145); Total Protein,Serum 7.6 g/dl (6.3-8.2)
== END 2024-01-07 23:59 | disposition home or self-care (01) ==
LOC: LAB.DROPOF 14:32
PROVIDERS: PCP Student in an Organized Health Care Education/Training Program; Visit Provider Student in an Organized Health Care Education/Training Program
DX: R05.9 Cough, unspecified (principal); R04.2 Hemoptysis; K85.90 Acute pancreatitis without necrosis or infection, unspecified
CPT/HCPCS: 71046; 80053; 83690; 85025

== ENCOUNTER 2024-01-21 16:44 | Outpatient (CLI) | payer BC, SELFPAY ==
[2024-01-21 18:08] LABS: Microscopic, Urine URINE MICROSCOPIC (MICROSCOPIC)
[2024-01-21 19:35] LABS: Appearance,Urine CLEAR (Clear); Bilirubin,Urine Negative (Negative); Blood, Urine Negative (Negative); Color,Urine YELLOW (Yellow); Glucose,Urine (UA) Negative (Negative); Ketones,Urine Negative (Negative); Leukocyte Esterase,Urine Negative (Negative); Nitrate,Urine Negative (Negative); PH,Urine 5.5 (5.0-8.5); Protein,Urine Negative (Negative); Specific Gravity, Urine >= 1.030 (1.005-1.030); Urobilinogen,Urine 0.2 EU/dl (0.2)
[2024-01-21 19:45] LABS: Squamous Epithelial Cell,Urine Occasional #/hpf (0-5)
[2024-01-21 19:54] LABS: Lipase 164 U/L (23-300)
[2024-01-22 10:45] LABS: HIV (1&2) Antibody Rapid NONREACTIVE (NONREACTIVE)
[2024-01-23 07:12] LABS: HBsAg Screen Negative (Negative); HCV Ab Non Reactive (Non Reactive); Hep A Ab, IGM Negative (Negative); Hep B Core Ab, IgM Negative (Negative)
[2024-01-23 13:17] LABS: Rapid Plasma Reagin Ab Titer Non Reactive titer (NonRea<1:1)
[2024-01-26 00:08] LABS: Neisseria gonorrhoeae, NAA Negative (Negative)
[2024-01-26 14:19] LABS: HSV-1 DNA Negative (Negative); HSV-2 DNA Negative (Negative)
== END 2024-01-21 23:59 | disposition home or self-care (01) ==
LOC: LAB.DROPOF 16:44
PROVIDERS: PCP Student in an Organized Health Care Education/Training Program; Visit Provider Student in an Organized Health Care Education/Training Program
DX: Z11.3 Encounter for screening for infections with a predominantly sexual mode of transmission (principal); Z20.2 Contact with and (suspected) exposure to infections with a predominantly sexual mode of transmission; Z87.19 Personal history of other diseases of the digestive system
CPT/HCPCS: 86703; 80074; 81001; 83690; 86593; 87491; 87529; 87591

== ENCOUNTER 2024-01-22 15:20 | Outpatient (CLI) | payer BC, SELFPAY ==
[2024-01-25 16:12] LABS: H. pylori Breath Test Negative (Negative)
== END 2024-01-22 23:59 | disposition home or self-care (01) ==
LOC: LAB 15:20
PROVIDERS: PCP Student in an Organized Health Care Education/Training Program; Visit Provider Student in an Organized Health Care Education/Training Program
DX: R10.9 Unspecified abdominal pain (principal); R11.2 Nausea with vomiting, unspecified
CPT/HCPCS: 83013

== ENCOUNTER 2024-02-08 10:08 | Outpatient (CLI) | payer BC, SELFPAY ==
[2024-02-09 14:17] LABS: PSA, Free 0.29 ng/mL; Prostate Specific Ag 0.9 ng/mL (0.0-4.0)
== END 2024-02-08 23:59 | disposition home or self-care (01) ==
LOC: LAB 10:09
PROVIDERS: PCP Student in an Organized Health Care Education/Training Program; Visit Provider Urology
DX: N40.0 Benign prostatic hyperplasia without lower urinary tract symptoms (principal)
CPT/HCPCS: 36415; 84153; 84154

== ENCOUNTER 2024-02-10 14:16 | Outpatient (CLI) | payer BC, SELFPAY ==
--- NOTE | 2024-02-10 14:30 | US_ITS ---
FINAL REPORT CLINICAL HISTORY: pain FINDINGS: Limited sonographic images of the urinary bladder were obtained. The bladder filled measures 247 mL. Postvoid volume is 4.48 mL. IMPRESSION: Normal postvoid residual. Reviewed, Interpreted and Dictated by Lilian Narvaez MD Transcribed by Mirian Glez Authenticated and [facility]
== END 2024-02-10 23:59 | disposition home or self-care (01) ==
LOC: RAD 14:17
PROVIDERS: PCP Student in an Organized Health Care Education/Training Program; Visit Provider Urology
DX: N40.0 Benign prostatic hyperplasia without lower urinary tract symptoms (principal)
CPT/HCPCS: 76857

== ENCOUNTER 2024-02-11 12:14 | Outpatient (POV) | payer BC, SELFPAY ==
[2024-02-11 13:27] VITALS: BP 116/82; PULSE 53; RESP 18; O2SAT 99; BMI 24.2
--- NOTE | 2024-02-11 13:35 | A.OFFVIS_ITS ---
[facility] Disclaimer: The information contained in this section may have been updated after the patient was seen, as this information can be updated by other users. Medical History (Updated 02/08/24 @ 09:56 by Saji Bonds MD) Painful urination Left-sided nosebleed Vomiting Lower abdominal pain Pancreatitis Back pain Herniated disc Left-sided epistaxis Decreased sensation of foot Neuropathy Coronary artery calcification seen on CAT scan Diabetes mellitus, type 2 Hyperlipidemia Hypertension Surgical History History of nasal cauterization H/O arthroscopic knee surgery Family History Father Cancer Brain Ca; Grandmother Cancer Lung Ca; Other Alcoholism Asthma Coronary artery disease Diabetes Hyperlipidemia Hypertension No significant family history Social History Smoking Status: Never smoker alcohol intake: never substance use type: marijuana current occupational status: employed Travel in the last 8 weeks: None household members: spouse housing: house marital status: number of children: 7 caffeine: No do you feel safe at home: Yes victim of physical abuse: No victim of emotional abuse: No victim of sexual abuse: No would you like helpful sources: No PM Subjective & Objective Subjective Subjective:: Patient is a pleasant 53-year-old male who presents today for follow-up. Today he rates his pain an 8 out of 10. He denies any new trauma or injury. He does state that he is had a change of work duties and feels like this is aggravated his overall back pain. Patient has in the past had lumbar epidurals that did provide significant relief of at least 50% or more however he does state today that he would prefer not to do the injection because he feels so good with these that he typically can cause additional pain due to overdoing it. Patient does state that he is interested in possible medication therapy. Patient has been tried on muscle relaxers in the past and states he cannot tolerate these with his other medications. Patient has recently had a short time dose of oxycodone from an outside provider. His Patricio has been reviewed and is appropriate. Review of Systems: General: No recent weight changes, no fever, no sleep disturbances Respiratory: No cough, no shortness of air, no recurring pulmonary infections Cardiovascular/peripheral vascular: No chest pain, no palpitations, no edema, no shortness of breath Gastrointestinal: No new onset incontinence, normal bowel movements reported Genitourinary: No new onset incontinence Musculoskeletal: Low back pain, leg pain Psychiatric: [Normal mood/affect] Neurological: [Denies weakness in extremities], [denies balance issues] Pain at rest (0-10 scale): 8 Objective Objective:: Physical Exam: General: Alert and oriented x3, no acute distress, pleasant and cooperative Lungs: Respirations even and unlabored, symmetrical chest expansion Eyes: PERRL Musculoskeletal: Flexion and extension of lumbar [spine] somewhat guarded secondary to pain, [antalgic gait noted] Neurological: Speech clear, no gross sensory deficit Has patient had previous pain injection?: No Conservative treatment options previously tried: Home exercise plan Length of treatment: Longer than 6 weeks Meds Home Medications and Allergies Home Medications ?Medication ?Instructions ?Recorded ?Confirmed ?Type blood-glucose meter (OneTouch #1 ea 02/20/23 02/11/24 Rx Ultra2 Meter) lancets 31 gauge #100 ea 02/20/23 02/11/24 Rx blood sugar diagnostic (Blood #50 ea 06/04/23 02/11/24 Rx Glucose Test strips) duloxetine 60 mg capsule,delayed 60 mg PO BID 12/15/23 02/11/24 History release lisinopril 5 mg tablet 5 mg PO DAILY 12/15/23 02/11/24 History sitagliptin phosphate 100 mg 100 mg PO DAILY 12/15/23 02/11/24 History tablet (Januvia) pantoprazole 20 mg tablet,delayed 20 mg PO DAILY #30 tabs 01/21/24 02/11/24 Rx release oxybutynin chloride 10 mg 10 mg PO DAILY #90 tabs 02/08/24 02/11/24 Rx tablet,extended release 24 hr tadalafil 20 mg tablet (Cialis) 20 mg PO DAILY 30 days #14 tabs 02/08/24 02/11/24 Rx tadalafil 5 mg tablet (Cialis) 5 mg PO DAILY #30 tabs 02/08/24 02/11/24 Rx tamsulosin 0.4 mg capsule (Flomax) 0.4 mg PO DAILY #30 caps 02/08/24 02/11/24 Rx New Prescriptions to Start Prescriptions: Allergies Allergy/AdvReac Type Severity Reaction Status Date / Time metformin AdvReac Gastrointestinal Verified 02/08/24 09:21 Upset Assessment and Plan *Assessment and plan (1) Degenerative disc disease, lumbar: Status: Chronic Category: Medical Code(s): M51.36 - Other intervertebral disc degeneration, lumbar region Plan I did counselor dormitory the patient that we can start a 2-week dose of gabapentin 100 mg 3 times daily. Patient will return to clinic in 2 weeks for reevaluation of symptoms and plan of care. Patient has been instructed to contact the clinic with any concerns before the next appointment. Dr. Hebert has reviewed this note and agrees with this plan of care. This note was dictated using voice recognition software and make contain errors or omissions. All injections are used with Lidocaine or Bupivacaine and Depo Medrol.
== END 2024-02-11 23:59 | disposition home or self-care (01) ==
PROVIDERS: PCP Student in an Organized Health Care Education/Training Program; Visit Provider Nurse Practitioner Family
DX: M51.36 Other intervertebral disc degeneration, lumbar region (principal); F12.90 Cannabis use, unspecified, uncomplicated; Z79.84 Long term (current) use of oral hypoglycemic drugs; E11.9 Type 2 diabetes mellitus without complications
CPT/HCPCS: 99212; G0463

== ENCOUNTER 2024-03-16 14:19 | Outpatient (POV) | payer BC, SELFPAY ==
--- NOTE | 2024-03-16 14:39 | EXP.PAIN.SOA ---
[facility] Disclaimer: The information contained in this section may have been updated after the patient was seen, as this information can be updated by other users. Medical History Epistaxis Painful urination Left-sided nosebleed Vomiting Lower abdominal pain Pancreatitis Back pain Herniated disc Left-sided epistaxis Decreased sensation of foot Neuropathy Chronic sensorimotor polyneuropathy mainly of demyelinating type, moderate. Coronary artery calcification seen on CAT scan 2021 CTA chest-mild coronary artery calcification Diabetes mellitus, type 2 Hyperlipidemia Hypertension Surgical History History of nasal cauterization H/O arthroscopic knee surgery Family History Father Cancer Brain Ca; Grandmother Cancer Lung Ca; Other Alcoholism Asthma Coronary artery disease Diabetes Hyperlipidemia Hypertension No significant family history Social History Smoking Status: Never smoker alcohol intake: never substance use type: marijuana current occupational status: employed Travel in the last 8 weeks: None household members: spouse housing: house marital status: number of children: 7 caffeine: No do you feel safe at home: Yes victim of physical abuse: No victim of emotional abuse: No victim of sexual abuse: No would you like helpful sources: No PM Subjective & Objective Subjective Subjective:: Patient is a pleasant 53-year-old male who presents today for medication refill and follow-up. Today he rates his pain a 6 out of 10. Patient was scheduled to see us sooner however has recently had a fall where he ended up injuring his left arm. He does present today with that extremity in a sling. He does state that he had to recently go to a nerve doctor. Patient does state from our last visit that the gabapentin that we sent in of 100 mg 3 times a day did seem like it really helped. Patient states it did take about 2 days for him to get used to the medication however he is doing well with that except he has ran out. Patient is requesting refills. His Patricio has been reviewed and is appropriate. Review of Systems: General: No recent weight changes, no fever, no sleep disturbances Respiratory: No cough, no shortness of air, no recurring pulmonary infections Cardiovascular/peripheral vascular: No chest pain, no palpitations, no edema, no shortness of breath Gastrointestinal: No new onset incontinence, normal bowel movements reported Genitourinary: No new onset incontinence Musculoskeletal: Neuropathy, chronic back pain Psychiatric: [Normal mood/affect] Neurological: [Denies weakness in extremities], [denies balance issues] Pain at rest (0-10 scale): 6 Objective Objective:: Physical Exam: General: Alert and oriented x3, no acute distress, pleasant and cooperative Lungs: Respirations even and unlabored, symmetrical chest expansion Eyes: PERRL Musculoskeletal: Flexion and extension of lumbar [spine] somewhat guarded secondary to pain, [antalgic gait noted] Neurological: Speech clear, no gross sensory deficit Has patient had previous pain injection?: No Conservative treatment options previously tried: Home exercise plan Length of treatment: Longer than 12 weeks Meds Home Medications and Allergies Home Medications ?Medication ?Instructions ?Recorded ?Confirmed ?Type blood-glucose meter (OneTouch #1 ea 02/20/23 02/29/24 Rx Ultra2 Meter) lancets 31 gauge #100 ea 02/20/23 02/29/24 Rx blood sugar diagnostic (Blood #50 ea 06/04/23 02/29/24 Rx Glucose Test strips) duloxetine 60 mg capsule,delayed 60 mg PO BID 12/15/23 02/29/24 History release lisinopril 5 mg tablet 5 mg PO DAILY 12/15/23 02/29/24 History sitagliptin phosphate 100 mg 100 mg PO DAILY 12/15/23 02/29/24 History tablet (Januvia) pantoprazole 20 mg tablet,delayed 20 mg PO DAILY #30 tabs 01/21/24 02/29/24 Rx release oxybutynin chloride 10 mg 10 mg PO DAILY #90 tabs 02/22/24 02/29/24 Rx tablet,extended release 24 hr tadalafil 5 mg tablet (Cialis) 5 mg PO DAILY #30 tabs 02/22/24 02/29/24 Rx tamsulosin 0.4 mg capsule (Flomax) 0.4 mg PO DAILY #30 caps 02/22/24 02/29/24 Rx cyclobenzaprine 10 mg tablet 10 mg PO TID 02/26/24 02/29/24 History ketorolac 10 mg tablet 10 mg PO Q6H 02/26/24 02/29/24 History gabapentin 100 mg capsule 100 mg PO TID #90 caps 03/16/24 Rx New Prescriptions to Start Prescriptions: gabapentin Irena Swan Allergies Allergy/AdvReac Type Severity Reaction Status Date / Time metformin AdvReac Gastrointestinal Verified 02/29/24 13:06 Upset Assessment and Plan *Assessment and plan (1) Degenerative disc disease, thoracic: Status: Chronic Category: Medical Code(s): M51.34 - Other intervertebral disc degeneration, thoracic region (2) Degenerative disc disease, lumbar: Status: Chronic Category: Medical Code(s): M51.36 - Other intervertebral disc degeneration, lumbar region (3) Neuropathy: Problem Comment: Chronic sensorimotor polyneuropathy mainly of demyelinating type, moderate. Status: Chronic Category: Medical Code(s): G62.9 - Polyneuropathy, unspecified Plan I did deputy general counsel the patient that we we will send in a 3-month supply of gabapentin 100 mg 3 times daily. Patient will return to clinic in 3 months for reevaluation of symptoms and plan of care. We will plan on doing a 90-day supply at his next visit. Patient has been instructed to contact the clinic with any concerns before the next appointment. Dr. Hebert has reviewed this note and agrees with this plan of care. This note was dictated using voice recognition software and make contain errors or omissions. All injections are used with Lidocaine or Bupivacaine and Depo Medrol.
[2024-03-16 14:41] VITALS: BP 115/99; PULSE 104; RESP 14; O2SAT 98; BMI 24.7
== END 2024-03-16 23:59 | disposition home or self-care (01) ==
PROVIDERS: PCP Student in an Organized Health Care Education/Training Program; Visit Provider Nurse Practitioner Family
DX: M51.34 Other intervertebral disc degeneration, thoracic region (principal); M51.369 Other intervertebral disc degeneration, lumbar region without mention of lumbar back pain or lower extremity pain; G62.9 Polyneuropathy, unspecified
CPT/HCPCS: 99212; G0463

== ENCOUNTER 2024-04-25 06:58 | Outpatient (CLI) | payer OTHER, SELFPAY ==
--- NOTE | 2024-04-25 07:05 | MR_ITS ---
FINAL REPORT CLINICAL HISTORY: SHOULDER PAIN. BEST IMAGES. COMPARISON: None FINDINGS: Multiplanar MR imaging of the left shoulder was performed after the intra-articular injection of dilute gadolinium solution. There is motion artifact on all of the images decreasing sensitivity of this exam. Partial tear of the articular surface of the supraspinatus tendon measuring less than 50% tendon thickness. No full-thickness tear identified. There is no evidence of contrast leakage from the glenohumeral joint to the subacromial/subdeltoid bursa. Moderate AC joint arthropathy noted. Edema is seen in the distal acromion. Fluid is noted in the bursa. There is a SLAP tear extending to the posterior labrum. There is contrast extravasation inferiorly from the glenohumeral joint and humeral attachment. The inferior glenohumeral ligament has an abnormal appearance consistent with HAGL. The long head of the biceps tendon is intact. There is no evidence of fracture. Multiple subchondral cysts are seen in the humeral head. The musculature is intact. No soft tissue mass or cyst is identified. IMPRESSION: SLAP tear. Partial tear articular surface supraspinatus tendon. HAGL. Degenerative changes. Reviewed, Interpreted and Dictated by Layo Howard III, MD Transcribed by Marlene Eid Authenticated and [facility]
--- NOTE | 2024-04-25 07:13 | IR_ITS ---
FINAL REPORT CLINICAL HISTORY: SHOULDER PAIN 46.07 dap 0.23 fluoro FINDINGS: Left shoulder injection for MRI arthrogram Attending radiologist: Dr. Howard Physician Structural Steel Ironworker: Aleksandar Orozco PA-C HISTORY: . Left shoulder pain PROCEDURE: After informed consent was obtained, a time-out was performed. Utilizing local anesthesia and sterile technique, with direct fluoroscopic guidance, access to the joint was obtained . A small amount of contrast was injected to confirm needle tip location. Additional gadolinium contrast was injected. IMPRESSION: Status post injection for MRI arthrogram without immediate complication. Please see MRI report. Fluoro time: 23 seconds DAP: 46.07 uGy.m2 Films reviewed , interpreted and dictated by Dr. Howard. Transcribed by Aleksandar Orozco PA-C. Reviewed, Interpreted and Dictated by Layo Howard III, MD Transcribed by MARTINA Andrew Authenticated and [facility]
--- NOTE | 2024-04-25 07:13 | XR_ITS ---
FINAL REPORT CLINICAL HISTORY: RULE OUT METALLIC FOREIGN BODY FOR MRI FINDINGS: 2 views were obtained. No acute fracture or malalignment. The paranasal sinuses are symmetric. No radiopaque foreign body identified. IMPRESSION: No radiopaque foreign body. Reviewed, Interpreted and Dictated by Layo Howard III, MD Transcribed by Dorita Bryant Authenticated and . [facility]
[2024-04-25] MEDS: IOPAMIDOL-370 (76%);100ML BOTTLE 20 ML IV (08:36)
[2024-04-25] MEDS: SODIUM CHLORIDE 0.9% 10ML SYR (RAD ONLY) 10 ML IV ×2 (08:36)
[2024-04-25] MEDS: GADOTERIDOL INJ 10ML SYRINGE IV (13:22)
== END 2024-04-25 23:59 | disposition home or self-care (01) ==
LOC: RAD 06:59
PROVIDERS: PCP Student in an Organized Health Care Education/Training Program; Visit Provider Orthopaedic Surgery Adult Reconstructive Orthopaedic Surgery
DX: M25.512 Pain in left shoulder (principal); Z03.823 Encounter for observation for suspected inserted (injected) foreign body ruled out
CPT/HCPCS: 70200; 73040; 73222; A9576; Q9967

== ENCOUNTER 2024-06-16 10:09 | Outpatient (CLI) | payer OTHER, SELFPAY ==
--- NOTE | 2024-06-16 10:13 | XR_ITS ---
FINAL REPORT TECHNIQUE: Chest PA & Lateral CLINICAL HISTORY: pre-op left shoulder cough COMPARISON: None FINDINGS: 2 views of the chest were performed. The heart size is normal. The mediastinum is within normal limits. There is no acute cardiopulmonary process. There are no pleural effusions. There is no pneumothorax. The bony thorax appears intact. IMPRESSION: No acute cardiopulmonary process. Reviewed, Interpreted and Dictated by Willie Ramirez MD Transcribed by Carisa Zuniga Authenticated and . [facility]
[2024-06-16 18:07] LABS: Basophils # 0.1 K/mm3 (0-0.2); Basophils % 0.7 % (0.1-2.0); Eosinophils % 0.6 % (0.1-12.0); Hematocrit 48.6 % (42.0-52.0); Hemoglobin 16.6 g/dL (14.1-18.0); Lymphocytes # 1.4 K/mm3 (0.7-4.5); Lymphocytes % 19.8 % (10-50); Mean Corpuscular HGB Conc 34.2 g/dL (31.8-35.4); Mean Corpuscular Hemoglobin 32.2 pg (27.0-31.2); Mean Corpuscular Volume 94.4 fl (80-94); Monocytes # 0.7 K/mm3 (0.1-1.0); Monocytes % 9.6 % (1.7-9.3); Neutrophils # 4.8 K/mm3 (1.8-7.8); Platelet Count 255 K/mm3 (142-424); Red Blood Count 5.15 M/mm3 (4.60-6.20); Red Cell Distribution Width 12.6 % (11.5-17.5); White Blood Count 6.9 K/mm3 (4.8-10.8)
[2024-06-16 19:02] LABS: Blood Urea Nitrogen 15 mg/dl (9-20); Calcium 10.2 mg/dl (8.4-10.2); Carbon Dioxide 25 mmol/L (22.0-30.0); Chloride 102 mmol/L (98-107); Estimated Glomerular Filt Rate 88 ml/min (>60); GFR (African American) 106 ML/MIN (>60); Glucose 153 mg/dl (74-100); Sodium 141 mmol/L (136-145)
== END 2024-06-16 23:59 | disposition home or self-care (01) ==
LOC: RAD 10:10
PROVIDERS: PCP Student in an Organized Health Care Education/Training Program; Visit Provider Student in an Organized Health Care Education/Training Program
DX: Z01.818 Encounter for other preprocedural examination (principal)
CPT/HCPCS: 71046; 80048; 85025

== ENCOUNTER 2024-08-18 08:29 | Outpatient (POV) | payer SELFPAY ==
[2024-08-18 08:38] VITALS: BP 147/95; PULSE 95; RESP 18; O2SAT 99; BMI 23.6
--- NOTE | 2024-08-18 08:48 | A.OFFVIS_ITS ---
[facility] Disclaimer: The information contained in this section may have been updated after the patient was seen, as this information can be updated by other users. Medical History Epistaxis Painful urination Left-sided nosebleed Vomiting Lower abdominal pain Pancreatitis Back pain Herniated disc Left-sided epistaxis Decreased sensation of foot Neuropathy Chronic sensorimotor polyneuropathy mainly of demyelinating type, moderate. Coronary artery calcification seen on CAT scan 2021 CTA chest-mild coronary artery calcification Diabetes mellitus, type 2 Hyperlipidemia Hypertension Surgical History History of nasal cauterization H/O arthroscopic knee surgery Family History Father Cancer Brain Ca; Grandmother Cancer Lung Ca; Other Alcoholism Asthma Coronary artery disease Diabetes Hyperlipidemia Hypertension No significant family history Social History Smoking Status: Never smoker alcohol intake: never substance use type: marijuana current occupational status: employed Travel in the last 8 weeks: None household members: spouse housing: house marital status: number of children: 7 caffeine: No do you feel safe at home: Yes victim of physical abuse: No victim of emotional abuse: No victim of sexual abuse: No would you like helpful sources: No PM Subjective & Objective Subjective Subjective:: Patient is a pleasant 53-year-old male who presents today for 3-month follow-up and medication refill. Today he rates his pain a 7 out of 10. Patient does state from our last visit he ended that tearing his rotator cuff along the left side and is scheduled for upcoming surgery. Patient does also make mention that he is no longer at the job that he was at for 13 years that he was let go after his injury. Patient is currently managed with gabapentin 100 mg 3 times a day from our office. He denies any side effects. He is asking if there is additional adjustment that could be made to this dosage. He is having allover generalized joint pain. His Patricio has been reviewed and is appropriate. Review of Systems: General: No recent weight changes, no fever, no sleep disturbances Respiratory: No cough, no shortness of air, no recurring pulmonary infections Cardiovascular/peripheral vascular: No chest pain, no palpitations, no edema, no shortness of breath Gastrointestinal: No new onset incontinence, normal bowel movements reported Genitourinary: No new onset incontinence Musculoskeletal: Low back pain, left shoulder pain Psychiatric: [Normal mood/affect] Neurological: [Denies weakness in extremities], [denies balance issues] Pain at rest (0-10 scale): 7 Objective Objective:: Physical Exam: General: Alert and oriented x3, no acute distress, pleasant and cooperative Lungs: Respirations even and unlabored, symmetrical chest expansion Eyes: PERRL Musculoskeletal: Flexion and extension of lumbar [spine] somewhat guarded secondary to pain, [antalgic gait noted] Neurological: Speech clear, no gross sensory deficit Has patient had previous pain injection?: No Conservative treatment options previously tried: Prescription medications Length of treatment: Longer than 12 weeks Meds Home Medications and Allergies Home Medications ?Medication ?Instructions ?Recorded ?Confirmed ?Type blood-glucose meter (OneTouch #1 ea 02/20/23 08/18/24 Rx Ultra2 Meter) lancets 31 gauge #100 ea 02/20/23 08/18/24 Rx blood sugar diagnostic (Blood #50 ea 06/04/23 08/18/24 Rx Glucose Test strips) duloxetine 60 mg capsule,delayed 60 mg PO BID 12/15/23 08/18/24 History release lisinopril 5 mg tablet 5 mg PO DAILY 12/15/23 08/18/24 History sitagliptin phosphate 100 mg 100 mg PO DAILY 12/15/23 08/18/24 History tablet (Januvia) cyclobenzaprine 10 mg tablet 10 mg PO TID 02/26/24 08/18/24 History ketorolac 10 mg tablet 10 mg PO Q6H 02/26/24 08/18/24 History pantoprazole 20 mg tablet,delayed 20 mg PO DAILY #30 tabs 04/25/24 08/18/24 Rx release meloxicam 15 mg tablet 15 mg PO DIRECTED Pain 05/30/24 08/18/24 History oxybutynin chloride 10 mg 10 mg PO DAILY #90 tabs 05/30/24 08/18/24 Rx tablet,extended release 24 hr tadalafil 20 mg tablet (Cialis) 20 mg PO DAILY #14 tabs 05/30/24 08/18/24 Rx tamsulosin 0.4 mg capsule (Flomax) 0.4 mg PO DAILY 90 days #90 caps 05/30/24 08/18/24 Rx diltiazem HCl 120 mg 120 mg PO DAILY #30 caps 06/27/24 08/18/24 Rx capsule,extended release 24 hr tramadol 50 mg tablet 50 mg PO Q6H PRN Pain 06/27/24 08/18/24 History gabapentin 100 mg capsule 200 mg (2 x 100 mg) PO TID #180 08/18/24 Rx caps New Prescriptions to Start Prescriptions: gabapentin Irena Swan Allergies Allergy/AdvReac Type Severity Reaction Status Date / Time metformin AdvReac Gastrointestinal Verified 08/03/24 07:45 Upset Assessment and Plan *Assessment and plan (1) Chronic low back pain: Status: Chronic Qualifiers: Back pain laterality: bilateral Sciatica laterality: sciatica of right side Sciatica presence: with sciatica Qualified Code(s): M54.41 - Lumbago with sciatica, right side; G89.29 - Other chronic pain Category: Medical Code(s): M54.50 - Low back pain, unspecified; G89.29 - Other chronic pain (2) Left shoulder pain: Status: Acute Category: Medical Code(s): M25.512 - Pain in left shoulder Plan I will increase the patient's gabapentin to 200 mg 3 times daily and provide a 3-month supply of this medication. I did discuss with the patient in future we can always see about additional injection therapy. Patient has tried injections in the past and has gotten some good improvement however often times it was very temporary. Patient will return to clinic in 3 months for reevaluation of symptoms and plan of care. Patient has been instructed to contact the clinic with any concerns before the next appointment. Dr. Hebert has reviewed this note and agrees with this plan of care. This note was dictated using voice recognition software and make contain errors or omissions. All injections are used with Lidocaine, Bupivacaine and Depo Medrol. Occasionally urine drug screen is needed to verify patient's compliance with our office pain contract. This is ordered based off specific treatments related to chronic pain with the potential to abuse certain medications.
== END 2024-08-18 23:59 | disposition home or self-care (01) ==
PROVIDERS: Visit Provider Nurse Practitioner Family
DX: M54.41 Lumbago with sciatica, right side (principal); G89.29 Other chronic pain; M25.512 Pain in left shoulder
CPT/HCPCS: 99212; G0463

== ENCOUNTER 2024-11-15 08:41 | Outpatient (POV) | payer MEDICAID, SELFPAY ==
--- OUTSIDE RECORDS SUMMARY | 2024-11-15 08:58 | XMS_ITS | Continuity of Care Document ---
Author Organization [employer] [facility] Address [address] [place] [address] Assessment Encounter Date Assessment Date Assessment LastModified by Organization Details LastModified Time 11/04/2024 11/04/2024 Follow up in 2 months for a1c, annual wellness and foot exam Not available 11/04/2024 09:34:44 Plan of Treatment Reminders Order Date Submit Date Provider Last Modified By Organization Details Last Modified Time Details Appointments None record ed. Lab None record ed. Referral None record ed. Procedures None record ed. Surgeries None record ed. Imaging None record ed. Medication Orders None record ed. Patient TargetsNo targets recorded. Patient Instructions Encounter Date Encounter Id Patient Instructions Last Modified By Organization Details Last Modified Time 11/04/2024 [id number] learning about type 2 diabetes Not available 11/04/2024 09:15:57 type 2 diabetes: care instructions Not available 11/04/2024 09:15:57 high blood pressure: care instructions Not available 11/04/2024 09:15:57 learning about high blood pressure Not available 11/04/2024 09:15:57 Reason for Referral None Reported. Problems Name Problem SNOMED Code Status Onset Date Resolution Date Notes Provider Name and Address Organization Details Recorded Time Gastroesophage al reflux disease without esophagitis 378941907 Active 2024 KEITH PHAN NP [address] [place], [address], [employer] 11:54:59 Essential hypertension 32875980 Active 2024 KEITH PHAN NP [address] [place], [address], [employer] 5 11:55:52 Type 2 diabetes mellitus 39362598 Active 2024 KEITH PHAN NP [address] [place], [address], [employer] 5 11:57:52 Problem Notes None recorded. Medical Equipment None Reported. Allergies Allergen ID Allergen Name Allergen Category Reaction Reaction Severity Criticality Documentation Date Start Date Code Code System Note Provider Name and Address Organization Details Recorded Time 45294 aspirin medicatio n Not available Not available Not available 09/29/2024 1191 RxNorm Sharon Trudi Ning by [employer], [employer] 11:09:07 38459 Jardiance medicatio n Not available Not available Not available 09/29/2024 87597 59 RxNorm Sharon Trudi [employer], [employer] 11:09:18 59094 metformin medicatio n Not available Not available Not available 09/29/2024 6809 RxNorm Sharon Trudi [employer], [employer] 11:09:28 02969 fentanyl medicatio n Not available Not available Not available 09/29/2024 4337 RxNorm Sharon Trudi [employer], [employer] 11:09:47 Medications Name Sig Start Date Stop Date Status Note LastModified by Organization Details LastModified Time cyclobenzap rine 10 mg tablet TAKE 1 TABLET BY MOUTH THREE TIMES DAILY NEEDED 09/29 completed Not Available Not Available Not Available oxybutynin chloride ER 10 mg tablet,exte nded release 24 hr TAKE 1 TABLET BY MOUTH ONCE DAILY active Not Available Not Available No t Available meloxicam 15 mg tablet TAKE 1 TABLET BY MOUTH ONCE DAILY 09/29 completed Not Available Not Available Not Available tramadol 50 mg tablet TAKE 1 TABLET BY MOUTH EVERY 6 HOURS NEEDED FOR PAIN active Not Available Not Available No t Available ketorolac 10 mg tablet TAKE 1 TABLET BY MOUTH EVERY 4 HOURS NEEDED NOT TO EXCEED 40MG IN 24 HOURS FOR UP TO 5 DAYS TOTAL USE 09/29 completed Not Available Not Available Not Available pantoprazol e 20 mg tablet,adolph yed release Take 1 tablet every day by oral route. active Not Available Not Available No t Available bisoprolol fumarate 5 mg tablet TAKE 1 TABLET BY MOUTH ONCE DAILY 09/29 completed Not Available Not Available Not Available tamsulosin 0.4 mg capsule TAKE 1 CAPSULE BY MOUTH ONCE DAILY active Not Available Not Available No t Available pantoprazol e 40 mg tablet,adolph yed release TAKE ONE TABLET BY MOUTH EVERY DAY active Not Available Not Available No t Available lisinopril 5 mg tablet TAKE ONE TABLET BY MOUTH EVERY DAY active Not Available Not Available No t Available gabapentin 100 mg capsule TAKE 2 CAPSULES BY MOUTH THREE TIMES DAILY active Not Available Not Available No t Available ondansetron 4 mg disintegrat ing tablet DISSOLVE 1 TABLET IN MOUTH EVERY 8 HOURS NEEDED FOR NAUSEA AND VOMITING FOR 4 DAYS 09/29 completed Not Available Not Available Not Available oxycodone 5 mg tablet TAKE 1 TABLET BY MOUTH EVERY 8 HOURS NEEDED FOR PAIN active Not Available Not Available No t Available tadalafil 5 mg tablet TAKE 1 TABLET BY MOUTH ONCE DAILY 09/29 completed Not Available Not Available Not Available tadalafil 20 mg tablet TAKE 1 TABLET BY MOUTH ONCE DAILY ADMINISTE Dejah OTERO 60 MINUTES BEFORE SEXUAL ACTIVITY. DO NOT USE MORE THAN 1 DOSE PER 24 HOURS active Not Available Not Available No t Available duloxetine 60 mg capsule,del ayed release TAKE 1 CAPSULE BY MOUTH TWICE DAILY FOR CHRONIC BACK PAIN (MAX DAILY DOSE 2 CAPSULES) active Not Available Not Available No t Available Januvia 50 mg tablet TAKE ONE TABLET BY MOUTH EVERY DAY active Not Available Not Available No t Available Vitals Date Recorded Body height Provider Name an d Address Organization Details Last Updated DateTime 11/04/2024 175.26 cm Massiel Christie [employer] 11/04/2024 08:32:19 Date Recorded Body mass index (BMI) Body weight Body temperature Heart rate Oxygen saturation Oxygen saturation in Arterial blood by Pulse oximetry Systolic blood pressure Diastolic blood pressure Systolic blood pressure Diastolic blood pressure Provider Name and Address Organization Details Last Updated DateTime 25.5 kg/m2 67341.9 9 g 96.3 [degF] 87 /min 98 % 98 % 179 mm[Hg] 79 mm[Hg] 126 mm[Hg] 88 mm[Hg] Elisabeth Mckeon [employer]. 08:46:37 Social History Question Answer Notes LastModified by Organizat ion Details LastModified Time Tobacco Smoking Status Never Smoker Sharon Trudihortencia vargas [employer] 09/29/2024 11:10:40 Do You Have An Advance Directive? No Information n ot available 09/29/2024 Is Your Home Air Conditioned? Yes Information not available 09/29/2024 Do You Wear A Helmet When Biking? No Information not available 09/29/2024 Are You Blind Or Do You Have Difficulty Seeing? Yes Information n ot available 09/29/2024 What Is Your Level Of Caffeine Consumption? Moderate Information not available 09/29/2024 What Type Of Shoe Caser Do You Use? None Information not available 09/29/2024 In The 14 Days Before Symptom Onset, Have You Had Close Contact With A Laboratory-confirm ed COVID-19 While That Case Was Ill? No Information n ot available 09/29/2024 In The 14 Days Before Symptom Onset, Have You Had Close Contact With A Person Who Is Under Investigation For COVID-19 While That Person Was Ill? No Information not available 09/29/2024 Have You Been To An Area Known To Be High Risk For COVID-19? No Information not available 09/29/2024 Are You Deaf Or Do You Have Serious Difficulty Hearing? No Information not available 09/29/2024 What Type Of Diet Are You Following? REGULAR Information n ot available 09/29/2024 Which Illicit Or Recreational Drugs Have You Used? Medical Information not available 09/29/2024 What Is The Highest Grade Or Level Of School You Have Completed Or The Highest Degree You Have Received? [id number] Information not available 09/29/2024 How Many Days Of Moderate To Strenuous Exercise, Like A Brisk Walk, Did You Do In The Last 7 Days? 3 Information not available 09/29/2024 Have There Been Any Changes To Your Family Or Social Situation? Yes Information no t available 09/29/2024 Are There Any Guns Present In Your Home? No Information not available 09/29/2024 Which Of Your Hands Is Dominant? Right Information n ot available 09/29/2024 What Is Your Home Situation? Other Information not available 09/29/2024 How Many Years Have You Used Illicit Or Recreational Drugs? 35 Information not available 09/29/2024 Do You Have A Medical Power Of Fund Development Manager? No Information not available 09/29/2024 What Was The Date Of Your Most Recent Tobacco Screening? 11/04/2024 [email or web address] Information not available 11/04/2024 Do You Have Any Pets? No Information not available 09/29/2024 Do You Use Protection During Sex? No Information not available 09/29/2024 What Is Your Relationship Status? Information not available 09/29/2024 Have You Repeated Any Grades? No Information not available 09/29/2024 Do You Use Your Seat Belt Or Car Seat Routinely? Yes Information not available 09/29/2024 Are You Sexually Active? Yes Information not available 09/29/2024 Do You Have Any Siblings? Yes Information not available 09/29/2024 Do You Have Smoke And Carbon Monoxide Detectors In Your Home? Yes Information not available 09/29/2024 Are You Passively Exposed To Smoke? No Information no t available 09/29/2024 Are There Any Smokers In Your House? Yes Information not available 09/29/2024 Do You Participate In Social Media? No Information not available 09/29/2024 Do You Use Sunscreen Routinely? No Information not available 09/29/2024 Has Tobacco Cessation Counseling Been Provided? No Information not available 09/29/2024 Have You Recently Traveled Abroad? No Information not available 09/29/2024 Have You Used IV Drugs? No Information not available 09/29/2024 Do You Have Difficulty Walking Or Climbing Stairs? Yes Information not available 09/29/2024 Do You Have Any Dietary Restrictions? No Information not available 09/29/2024 Sex: Unknown Functional Status Question Answer Note LastModified by Organizat ion Details LastModified Time Do you use any illicit or recreational drugs? Yes Information not available 09/29/2024 Do you or have you ever used any other forms of tobacco or nicotine? No Information not available 09/29/2024 What is your level of alcohol consumption? None Information not available 09/29/2024 Are you currently employed? No Information not available 09/29/2024 Are you able to walk? YESWOREST Information not available 09/29/2024 Do you have difficulty doing errands alone? No Information not available 09/29/2024 Are you able to care for yourself? Yes Information n ot available 09/29/2024 Do you have difficulty dressing or bathing? No Information not available 09/29/2024 What is your exercise level? Moderate Information not available 09/29/2024 Mental Status Question Answer Note LastModified by Organization D etails LastModified Time Do you have difficulty concentrating, remembering or making decisions? No Information no t available 09/29/2024 Are you or have you been involved with bullying? Yes Information not available 09/29/2024 Family History Nothing Reported. Medical History Condition Response Hospitalizations N ADD/ADHD N Emergency room visit since last appointm ent. N Abuse/Domestic Violence N Immunizations Vaccine Type Date Status Note Provider Nam e and Address Organization Details Recorded Time Hep B, adult 01/20/2008 completed Not Available [employer] 11/04/2024 08:20:56 Hep B, adult 02/22/2008 completed Not Available [employer] 11/04/2024 08:20:56 Hep B, adult 06/26/2008 completed Not Available [employer] 11/04/2024 08:20:56 Past Encounters Encounter ID Performer Location Encounter Start Date Encounter Closed Date Diagnosis/Indication Diagnosis SNOMED-CT Code Diagnosis ICD10 Code Diagnosis Note [id number] KEITH PHAN NP [facility] [address] [place] [address] 11/04/2024 08:19:58 11/04/2024 10:02:14 Essential hypertension 88607184 I10 Continue to monitor salt intake, recommend 30 min of exercise 4-5 days per week.Monit or blood pressure a few times per week and bring log back in for next visit to review. Type 2 can betes mellitus 36757267 E11.9 Has previously tried metformin but was unable to tolerate.R estarted Januvia, denies side effects. Health Concerns Section Related Observation LastModified by Organization Detai ls LastModified Time None Recorded Concern Status LastModified by Organization Details LastModified Time None Recorded Payers Encounter Date Sequence Insurance Name Policy Number Policy Rolle Covered Member ID Rolle Member ID Guarantor Name 11/04/2024 1 PASSPORT BY [employer] (MEDICAID REPLACEMENT - HMO) Irving Edmonds [id number] Irving Edmonds Notes Date Note Type Note Provider Name and Address Organization Details Recorded Time 11/04/2024 text/html presents today f or follow up after establishing care visit. Reports tolerating restart of januvia well. Previously took it, however did not take it for some time due to financial reasons. Now has restarted blood pressure medications as well. Had diabetic eye appointment this week, is being sent to specialist for further evaluation. No acute concerns at this time. KEITH PHAN NP [address] [place], [address], [place] [facility] [employer] 11/04/2024 09:35:14
--- OUTSIDE RECORDS SUMMARY | 2024-11-15 08:58 | XMS_ITS | Continuity of Care Document ---
Author Organization [facility] [employer] [facility] Address [address] [place] [address] Assessment No assessment recorded. Plan of Treatment Reminders Order Date Submit Date Provider Last Modified By Organization Details Last Modified Time Details Appointments None recorded. Lab lipid panel, serum 2024 025 [facility], [address] [place] [address], [id number], 5 04:08:40 HbA1c (hemoglobin A1c), blood 2024 025 [facility], [address] [place] [address], [phone], 12:04:20 CMP, serum or plasma 2024 025 [facility], [address] [place] [address], [address], 5 04:08:39 CBC w/ auto diff 2024 025 [facility], [address] [place] [address], [address], 5 04:08:38 Referral None recorded. Procedures None recorded. Surgeries None recorded. Imaging None recorded. Medication Orders Januvia 50 mg tablet 2024 025 [facility], [address] [place] [address], [address], 10:33:49 lisinopril 5 mg tablet 2024 025 [facility], [address] [place] [address], [address], 10:33:50 pantoprazol e 40 mg tablet,adolph yed release 2024 025 [facility], [address] [place] [address], [address], 10:33:52 Patient TargetsNo targets recorded. Patient Instructions Encounter Date Encounter Id Patient Instructions Last Modified By Organization Details Last Modified Time 09/29/2024 [id number] learning about t ype 2 diabetes Not available 09/29/2024 12:04:20 type 2 diabetes: care instructions Not available 09/29/2024 12:04:20 high blood press ure: care instructions Not available 09/29/2024 12:04:21 learning about h igh blood pressure Not available 09/29/2024 12:04:21 gastroesophageal reflux disease (GERD): care instructions Not available 09/29/2024 14:48:53 Reason for Referral None Reported. Results Created Date Observation Date Name Description Value Unit Range Abnormal Flag Note LastModifiedBy Organization Detail LastModifiedTime 09/30/19 25 09/29/2024 HbA1c (hemo globi n A1c), blood HbA1c 7.3 Not Available [address], [address], 09/29/2024 11:22:37 Result Notes None recorded. Problems Name Problem SNOMED Code Status Onset Date Resolution Date Notes Provider Name and Address Organization Details Recorded Time Gastroesophage al reflux disease without esophagitis 540682772 Active 2024 KEITH PHAN NP [address] [place], [address], [facility] 05/15/202 5 11:54:59 Essential hypertension 43559515 Active 2024 KEITH PHAN NP [address] [place], [address], [employer] 5 11:55:52 Type 2 diabetes mellitus 44529680 Active 2024 KEITH PHAN NP [address] [place], [address], [employer] 5 11:57:52 Problem Notes None recorded. Medical Equipment None Reported. Allergies Allergen ID Allergen Name Allergen Category Reaction Reaction Severity Criticality Documentation Date Start Date Code Code System Note Provider Name and Address Organization Details Recorded Time 98365 aspirin medicatio n Not available Not available Not available 09/29/2024 1191 RxNorm Sharon Shankse Zaldiva, [employer] 11:09:07 36127 Jardiance medicatio n Not available Not available Not available 09/29/2024 04072 59 RxNorm Sharonnimco Shankse Zaldiva, [employer] 11:09:18 11357 metformin medicatio n Not available Not available Not available 09/29/2024 6809 RxNorm Sharonnimco Shankse Zaldiva, [employer] 11:09:28 93099 fentanyl medicatio n Not available Not available Not available 09/29/2024 4337 RxNorm Sharonnimco Shankse Zaldiva, [employer] 11:09:47 Medications Name Sig Start Date [...] 1 TABLET BY MOUTH ONCE DAILY ADMINISTE R LEOLAA TELY 60 MINUTES BEFORE SEXUAL ACTIVITY. DO NOT [...] No t Available Vitals Date Recorded Body weight Body mass index (BMI) Body height Heart rate Oxygen saturation Oxygen saturation in Arterial blood by Pulse oximetry Body temperature Systolic blood pressure Diastolic blood pressure Provider Name and Address Organization Details Last Updated DateTime 5 78789.5 8 g 25.6 kg/m2 175.26 cm 101 /min 97 % 97 % 98.3 [degF] 115 mm[Hg] 75 mm[Hg] [facility] [employer] [facility]. 11:13:24 Social History Question Answer Notes LastModified by Organizat ion Details LastModified Time Tobacco Smoking Status Never Smoker Sharon vargas, [facility], [facility]. 09/29/2024 11:10:40 Do You Have An Advance [...] Information not available 09/29/2024 What Type Of Behavioral Instructor Do You Use? None Information not available [...] Or The Highest Degree You Have Received? [id number] Information not available 09/29/2024 How Many Days [...] Do You Have A Medical Power Of Parks And Recreation Worker? No Information not available 09/29/2024 What Was [...] History Nothing Reported. Medical History Condition Response Emergency room visit since last appointm ent. N Hospitalizations N ADD/ADHD N Abuse/Domestic Violence N Immunizations Vaccine Type [...] SNOMED-CT Code Diagnosis ICD10 Code Diagnosis Note [id number] KEITH PHAN NP [facility] [address] [place] [address] 09/29/2024 10:44:24 09/29/2024 17:27:35 Gastroesophageal reflux disease without esophagitis 532413230 K21.9 Essential hypertension 98955948 I10 Type 2 can betes mellitus 31738269 E11.9 Has previously tried metformin but was unable to tolerate. Hyperlipid emia screening 209968962 Z13.220 Health Concerns Section Related Observation LastModified by Organization Detai ls LastModified Time None Recorded Concern Status LastModified by Organization Details LastModified Time None Recorded Payers Encounter Date Sequence Insurance Name Policy Number Policy Rolle Covered Member ID Rolle Member ID Guarantor Name 09/29/2024 1 PASSPORT BY [employer] (MEDICAID REPLACEMENT - HMO) Irving Edmonds [id number] Irving Edmonds Notes Date Note Type Note Provider Name and Address Organization Details Recorded Time 09/29/2024 text/html Presents today t o establish care and request med refills, changing providers as his insurance coverage has changed. Past medical history includes chronic back pain (follows with pain management at [facility] and applications support specialist in [facility]), shoulder pain, erectile dysfunction as well as the following:hypertens ion: takes 5mg lisinopril daily. States he needs refills as he is now out. Denies dry cough or swelling with lisinopril use. Denies headache, blurry or changing vision, and chest pain.History of Afib. Has seen cardiology in the past. Patient adamantly declines ASA, antiarrhythmic, and anticoagulant use. [facility] cardiology repeatedly discussed need for these medication and risk associated with not taking them.Diabetes Mellitus type 2- Takes januvia. Tolerates well. Does not take metformin. At previous PCP he tried it and did not tolerate the medication or the side effects.BPH- states condition is stable on oxybutynin and tamsulosin daily.GERD- tolerates 20mg daily well, however has inadequate relief. Would like to discuss changing medication or dose.Has no acute complaints today. KEITH PHAN NP [address] [place], [address], [facility] [employer] [facility] 09/29/2024 14:50:15
--- OUTSIDE RECORDS SUMMARY | 2024-11-15 08:58 | XMS_ITS | Data Portability ---
Author Organization [facility] [place] Address [address] [place] [address] Assessment Encounter Date Assessment Date Assessment LastModified by Organization Details LastModified Time 11/04/2024 11/04/2024 Follow up in 2 months for a1c, annual wellness and foot exam Not available 11/04/2024 09:34:44 Plan of Treatment Reminders Order Date Submit Date Provider Last Modified By Organization Details Last Modified Time Details Appointments None recorded. Lab lipid panel, serum 2024 025 [facility], [address] [place] [address], [id number], 5 04:08:40 HbA1c (hemoglobin A1c), blood [address], [address], 5 12:04:20 CMP, serum or plasma 2024 025 [facility] [address] [place] [address], [id number], 5 04:08:39 CBC w/ auto diff 2024 025 [facility] [address] [place] [address], [address], 5 04:08:38 Referral None recorded. Procedures None recorded. Surgeries None recorded. Imaging None recorded. Medication Orders Januvia 50 mg tablet 2024 025 [facility], [address] [place] [address], [address], 10:33:49 lisinopril 5 mg tablet 2024 025 [facility], [address] [place] [address], [address], 10:33:50 pantoprazol e 40 mg tablet,adolph yed release 2024 [facility], [address] [place] [address], [address], 10:33:52 Patient TargetsNo targets recorded. Patient Instructions Encounter Date Encounter Id Patient Instructions Last Modified By Organization Details Last Modified Time 09/29/2024 [id number] learning about t ype 2 diabetes Not available 09/29/2024 12:04:20 type 2 diabetes: care instructions Not available 09/29/2024 12:04:20 high blood press ure: care instructions Not available 09/29/2024 12:04:21 learning about h igh blood pressure Not available 09/29/2024 12:04:21 gastroesophageal reflux disease (GERD): care instructions Not available 09/29/2024 14:48:53 11/04/2024 [id number] learning about t ype 2 diabetes Not available 11/04/2024 09:15:57 type 2 diabetes: care instructions Not available 11/04/2024 09:15:57 high blood press ure: care instructions Not available 11/04/2024 09:15:57 learning about h igh blood pressure Not available 11/04/2024 09:15:57 Reason for Referral None Reported. Results Created Date Observation Date Name Description Value Unit Range Abnormal Flag Note LastModifiedBy Organization Detail LastModifiedTime 09/30/1909/29/2024 HbA1c (hemo globi n A1c), blood HbA1c 7.3 Not Available [address], [place], [address], 09/29/2024 11:22:37 10/01/19 25 10/01/2024 CBC WITH DIFFE RENTI AL/PL ATELE T WBC 5.0 x10e3 /uL 3.4-10 .8 normal Not Available [facility]) [address] [facility], [place], [address], 10/01/2024 04:08:38 10/01/19 25 10/01/2024 CBC WITH DIFFE RENTI AL/PL ATELE T RBC 5.14 x10e6 /uL 4.14-5 .80 normal Not Available [facility] ([facility]) [address] [place], [address], 10/01/2024 04:08:38 10/01/19 25 10/01/2024 CBC WITH DIFFE RENTI AL/PL ATELE T hemoglobin 16.1 g/dL 13.0-1 7.7 normal Not Available [facility] ([facility]) [address] [facility], [place], [address], 10/01/2024 04:08:38 10/01/19 25 10/01/2024 CBC WITH DIFFE RENTI AL/PL ATELE T hematocrit 49.2 % 37.5-5 1.0 normal Not Available [facility] ([facility]) [address] [place], [address], 10/01/2024 04:08:38 10/01/19 25 10/01/2024 CBC WITH DIFFE RENTI AL/PL ATELE T MCV 96 fL 79-97 normal Not Available [facility] ([facility]) [address] [place], [address], 10/01/2024 04:08:38 10/01/19 25 10/01/2024 CBC WITH DIFFE RENTI AL/PL ATELE T MCH 31.3 pg 26.6-3 3.0 normal Not Available [facility] ([facility]) [address] [facility], [place], [address], 10/01/2024 04:08:38 10/01/19 25 10/01/2024 CBC WITH DIFFE RENTI AL/PL ATELE T MCHC 32.7 g/dL 31.5-3 5.7 normal Not Available [facility] ([facility]) [address] [facility], [place], [address], 10/01/2024 04:08:38 10/01/19 25 10/01/2024 CBC WITH DIFFE RENTI AL/PL ATELE T RDW 13.1 % 11.6-1 5.4 Not Available [facility] ([facility]) [address] [facility], [place], [address], 10/01/2024 04:08:38 10/01/19 25 10/01/2024 CBC WITH DIFFE RENTI AL/PL ATELE T platelets 160 x10e3 /uL 150-45 0 normal Not Available [facility] ([facility]) [address] [facility], [place], [address], 10/01/2024 04:08:38 10/01/19 25 10/01/2024 CBC WITH DIFFE RENTI AL/PL ATELE T neutrophils 57 % not estab. normal Not Available [facility] ([facility]) [address] [facility], [place], [address], 10/01/2024 04:08:38 10/01/19 25 10/01/2024 CBC WITH DIFFE RENTI AL/PL ATELE T lymphs 30 % not estab. normal Not Available [facility] ([facility]) [address] [facility], [place], [address], 10/01/2024 04:08:38 10/01/19 25 10/01/2024 CBC WITH DIFFE RENTI AL/PL ATELE T monocytes 11 % not estab. normal Not Available [facility] ([facility]) [address] [place], [address], 10/01/2024 04:08:38 10/01/19 25 10/01/2024 CBC WITH DIFFE RENTI AL/PL ATELE T eos 1 % not estab. normal Not Available [facility] ([facility]) [address] [place], [address], 10/01/2024 04:08:38 10/01/19 25 10/01/2024 CBC WITH DIFFE RENTI AL/PL ATELE T basos 1 % not estab. 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 0 normal Not Available [facility] ([facility]) [address] [place], [address], 10/01/2024 04:08:38 10/01/19 25 10/01/2024 CBC WITH DIFFE RENTI AL/PL ATELE T lymphs (absolute) 1.5 x10e3 /uL 0.7-3. 1 normal Not Available [facility] ([facility]) [address] [place], [address], 10/01/2024 04:08:38 10/01/19 25 10/01/2024 CBC WITH DIFFE RENTI AL/PL ATELE T monocytes(ab solute) 0.6 x10e3 /uL 0.1-0. 9 normal Not Available [facility] ([facility]) [address] [facility], [place], [address], 10/01/2024 04:08:38 10/01/19 25 10/01/2024 CBC WITH DIFFE RENTI AL/PL ATELE T eos (absolute) 0.1 x10e3 /uL 0.0-0. 4 normal Not Available [facility] ([facility]) [address] [facility], [place], [address], 10/01/2024 04:08:38 10/01/19 25 10/01/2024 CBC WITH DIFFE RENTI AL/PL ATELE T baso (absolute) 0.0 x10e3 /uL 0.0-0. 2 normal Not Available [facility] ([facility]) [address] [place], [address], 10/01/2024 04:08:38 10/01/19 25 10/01/2024 CBC WITH DIFFE RENTI AL/PL ATELE T immature granulocytes 0 % not estab. Not Available [facility] ([facility]) [address] [place], [address], 10/01/2024 04:08:38 10/01/19 25 10/01/2024 CBC WITH DIFFE RENTI AL/PL ATELE T immature grans (abs) 0.0 x10e3 /uL 0.0-0. 1 Not Available [facility] ([facility]) [address] [place], [address], 10/01/2024 04:08:38 10/01/19 25 10/01/2024 CBC WITH DIFFE RENTI AL/PL ATELE T NRBC SUBMARINE WORKER Not Available [facility] ([facility]) [address] [facility], [place], [address], 10/01/2024 04:08:38 10/01/19 25 10/01/2024 CBC WITH DIFFE RENTI AL/PL HANNA T hematology comments: SUBMARINE WORKER Not Available [facility] ([facility]) [address] [facility] [place], [address], 10/01/2024 04:08:38 10/01/19 25 10/01/2024 COMP. METAB OLIC PANEL (14) glucose 143 mg/dL 70-99 above high normal Not Available [facility] ([facility]) [address] [facility] [place], [address], 10/01/2024 04:08:39 10/01/19 25 10/01/2024 COMP. METAB OLIC PANEL (14) BUN 16 mg/dL 6-24 normal Not Available [facility] ([facility]) [address] [facility] [place], [address], 10/01/2024 04:08:39 10/01/19 25 10/01/2024 COMP. METAB OLIC PANEL (14) creatinine 0.78 mg/dL 0.76-1 .27 normal Not Available [facility] ([facility]) [address] [place], [address], 10/01/2024 04:08:39 10/01/19 25 10/01/2024 COMP. METAB OLIC PANEL (14) eGFR 106 mL/mi n/1.7 3 >59 normal Not Available [facility] ([facility]) [address] [place], [address], 10/01/2024 04:08:39 10/01/19 25 10/01/2024 COMP. METAB OLIC PANEL (14) BUN/creatini ne ratio 21 9-20 above high normal Not Available [facility] ([facility]) [address] [place], [address], 10/01/2024 04:08:39 10/01/19 25 10/01/2024 COMP. METAB OLIC PANEL (14) sodium 140 mmol/ L 134-14 4 normal Not Available [facility] ([facility]) [address] [facility], [place], [address], 10/01/2024 04:08:39 10/01/19 25 10/01/2024 COMP. METAB OLIC PANEL (14) potassium 4.4 mmol/ L 3.5-5. 2 normal Not Available [facility] ([facility]) [address] [place], [address], 10/01/2024 04:08:39 10/01/19 25 10/01/2024 COMP. METAB OLIC PANEL (14) chloride 102 mmol/ L 96-106 normal Not Available [facility] ([facility]) [address] [place], [address], 10/01/2024 04:08:39 10/01/19 25 10/01/2024 COMP. METAB OLIC PANEL (14) carbon dioxide, total 22 mmol/ L 20-29 normal Not Available [facility] ([facility]) [address] [place], [address], 10/01/2024 04:08:39 10/01/19 25 10/01/2024 COMP. METAB OLIC PANEL (14) calcium 9.7 mg/dL 8.7-10 .2 normal Not Available [facility] ([facility]) [address] [place], [address], 10/01/2024 04:08:39 10/01/19 25 10/01/2024 COMP. METAB OLIC PANEL (14) protein, total 6.7 g/dL 6.0-8. 5 normal Not Available [facility] ([facility]) [address] [facility] [place], [address], 10/01/2024 04:08:39 10/01/19 25 10/01/2024 COMP. METAB OLIC PANEL (14) albumin 4.5 g/dL 3.8-4. 9 normal Not Available [facility] ([facility]) [address] [facility] [place], [address], 10/01/2024 04:08:39 10/01/19 25 10/01/2024 COMP. METAB OLIC PANEL (14) globulin, total 2.2 g/dL 1.5-4. 5 Not Available [facility] ([facility]) [address] [facility] [place], [address], 10/01/2024 04:08:39 10/01/19 25 10/01/2024 COMP. METAB OLIC PANEL (14) bilirubin, total 0.5 mg/dL 0.0-1. 2 normal Not Available [facility] ([facility]) [address] [facility] [place], [address], 10/01/2024 04:08:39 10/01/19 25 10/01/2024 COMP. METAB OLIC PANEL (14) alkaline phosphatase 106 IU/L 44-121 normal Not Available [facility] ([facility]) [address] [facility] [place], [address], 10/01/2024 04:08:39 10/01/19 25 10/01/2024 COMP. METAB OLIC PANEL (14) AST (SGOT) 15 IU/L 0-40 normal Not Available [facility] ([facility]) [address] [facility] [place], [address], 10/01/2024 04:08:39 10/01/19 25 10/01/2024 COMP. METAB OLIC PANEL (14) ALT (SGPT) 14 IU/L 0-44 normal Not Available [facility] ([facility]) [address] [facility] [place], [address], 10/01/2024 04:08:39 10/01/19 25 10/01/2024 LIPID PANEL cholesterol, total 193 mg/dL 100-19 9 normal Not Available [facility] ([facility]) [address] [facility] [place], [address], 10/01/2024 04:08:40 10/01/19 25 10/01/2024 LIPID PANEL triglyceride s 182 mg/dL 0-149 above high normal Not Available [facility] ([facility]) [address] [place], [address], 10/01/2024 04:08:40 10/01/19 25 10/01/2024 LIPID PANEL HDL cholesterol 46 mg/dL >39 normal Not Available [facility] ([facility]) [address] [place], [address], 10/01/2024 04:08:40 10/01/19 25 10/01/2024 LIPID PANEL VLDL cholesterol rosa 32 mg/dL 5-40 Not Available [facility] ([facility]) [address] [place], [address], 10/01/2024 04:08:40 10/01/19 25 10/01/2024 LIPID PANEL LDL chol calc (rust) 115 mg/dL 0-99 above high normal Not Available [facility] ([facility]) [address] [place], [address], 10/01/2024 04:08:40 10/01/1910/01/2024 LIPID PANEL 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 Problems Name Problem SNOMED Code Status Onset Date Resolution Date Notes Provider Name and Address Organization Details Recorded Time Gastroesophage al reflux disease without esophagitis 614674669 Active 2024 KEITH PHAN NP [address] [place], [address], [employer] 11:54:59 Essential hypertension 51224224 Active 2024 KEITH PHAN NP [address] [place], [address], [employer] 11:55:52 Type 2 diabetes mellitus 42089917 Active 2024 KEITH PHAN, LONNIE [address] [place], [address], [employer] 11:57:52 Problem Notes None recorded. Medical Equipment None Reported. Allergies Allergen ID Allergen Name Allergen Category Reaction Reaction Severity Criticality Documentation Date Start Date Code Code System Note Provider Name and Address Organization Details Recorded Time 39816 aspirin medicatio n Not available Not available Not available 09/29/2024 1191 RxNorm Sharon Trudi [employer], [employer] 11:09:07 85941 Jardiance medicatio n Not available Not available Not available 09/29/2024 53102 59 RxNorm Sharon Trudi [employer], [employer] 11:09:18 95308 metformin medicatio n Not available Not available Not available 09/29/2024 6809 RxNorm Sharon Trudi [employer], [employer] 11:09:28 68064 fentanyl medicatio n Not available Not available Not available 09/29/2024 4337 RxNorm Sharon Trudi [employer], [employer] 11:09:47 Medications Name Sig Start Date [...] TABLET BY MOUTH ONCE DAILY ADMINISTE R APPROXIMA TELY 60 MINUTES BEFORE SEXUAL ACTIVITY. DO [...] and Address Organization Details Last Updated DateTime 80522.5 8 g 25.6 kg/m2 175.26 cm 101 /min 97 % 97 % 98.3 [degF] 115 mm[Hg] 75 mm[Hg] Sharon [employer]. 11:13:24 Date Recorded Body height Provider Name an d Address Organization Details Last Updated DateTime 11/04/2024 175.26 cm Massiel Longoria [facility] [facility] [employer] 11/04/2024 08:32:19 Date Recorded Body mass index (BMI) Body weight Body temperature Heart rate Oxygen saturation Oxygen saturation in Arterial blood by Pulse oximetry Systolic blood pressure Diastolic blood pressure Systolic blood pressure Diastolic blood pressure Provider Name and Address Organization Details Last Updated DateTime 25.5 kg/m2 34672.9 9 g 96.3 [degF] 87 /min 98 % 98 % 179 mm[Hg] 79 mm[Hg] 126 mm[Hg] 88 mm[Hg] Elisabeth Mckeon [employer]. 08:46:37 Social History Question Answer Notes LastModified by Organizat ion Details LastModified Time Tobacco Smoking Status Never Smoker Sharon Trudihortencia vargas [employer]. 09/29/2024 11:10:40 Do You Have An Advance [...] Information not available 09/29/2024 What Type Of Information Writer Do You Use? None Information not available [...] Or The Highest Degree You Have Received? LI83040-7 Information not available 09/29/2024 How Many Days [...] Do You Have A Medical Power Of Child Care Giver? No Information not available 09/29/2024 What Was [...] History Nothing Reported. Medical History Condition Response ADD/ADHD N Hospitalizations N Emergency room visit since last appointm [...] SNOMED-CT Code Diagnosis ICD10 Code Diagnosis Note [id number] KEITH PHAN NP [place] [address] 09/29/2024 10:44:24 09/29/2024 17:27:35 Gastroesophageal reflux disease without esophagitis 417527814 K21.9 Essential hypertension 24280979 I10 Type 2 can betes mellitus 52391227 E11.9 Has previously tried metformin but was unable to tolerate. Hyperlipid emia screening 133654644 Z13.020 [id number] KEITH PHAN NP [place] [address] 11/04/2024 08:19:58 11/04/2024 10:02:14 Essential hypertension 61460023 I10 Continue to monitor salt intake, recommend 30 min of exercise 4-5 days per week.Monit or blood pressure a few times per week and bring log back in for next visit to review. Type 2 can betes mellitus 06440555 E11.9 Has previously tried metformin but was unable to tolerate.R estarted Eligio, denies side effects. 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 Past medical history includes chronic back pain (follows with pain management at [facility] and underwriting specialist in [facility]), shoulder pain, erectile dysfunction as well as the following:hypertens ion: takes 5mg lisinopril daily. States he needs refills as he is now out. Denies dry cough or swelling with lisinopril use. Denies headache, blurry or changing vision, and chest pain.History of Afib. Has seen cardiology in the past. Patient adamantly declines ASA, antiarrhythmic, and anticoagulant use. States [facility] cardiology repeatedly discussed need for these medication [...] acute complaints today. KEITH PHAN NP [address] [place], [address], [employer]. 09/29/2024 14:50:15 11/04/2024 text/html presents today f or follow [...] at this time. KEITH PHAN NP [address] [place], [address], [employer]. 11/04/2024 09:35:14
--- NOTE | 2024-11-15 09:43 | EXP.PAIN.SOA ---
[facility] Disclaimer: The information contained in this section may have been updated after the patient was seen, as this information can be updated by other users. Medical History Epistaxis Painful urination Left-sided nosebleed Vomiting Lower abdominal pain Pancreatitis Back pain Herniated disc Left-sided epistaxis Decreased sensation of foot Neuropathy Chronic sensorimotor polyneuropathy mainly of demyelinating type, moderate. Coronary artery calcification seen on CAT scan 2021 CTA chest-mild coronary artery calcification Diabetes mellitus, type 2 Hyperlipidemia Hypertension Surgical History History of nasal cauterization H/O arthroscopic knee surgery Family History Father Cancer Brain Ca; Grandmother Cancer Lung Ca; Other Alcoholism Asthma Coronary artery disease Diabetes Hyperlipidemia Hypertension No significant family history Social History Smoking Status: Never smoker alcohol intake: never substance use type: marijuana current occupational status: employed Travel in the last 8 weeks?: None household members: spouse housing: house marital status: number of children: 7 caffeine: No do you feel safe at home: Yes victim of physical abuse: No victim of emotional abuse: No victim of sexual abuse: No would you like helpful sources: No PM Subjective & Objective Subjective Subjective:: Patient is a pleasant 53-year-old male who presents today for 3-month follow-up and medication refill. Today he rates his pain a 6 out of 10. He denies any new trauma or injury. He does state that he is still having the chronic low back pain that is a constant throbbing. He is also still having more severe left shoulder pain that has been going on since around February 2024 related to a rotator cuff tear. Patient states that shoulder is worse than his low back. He states he has very limited movement and does have some numbness related to this. Patient states the pain does interfere with his ability to perform activities of daily living such as cooking and cleaning. Patient is interested in possible injection therapy for this pain. Patient is currently managed with gabapentin 200 mg 3 times a day. He is asking if there is any additional adjustment that we can do for this. He denies any side effects. His Patricio has been reviewed and is appropriate. Review of Systems: General: No recent weight changes, no fever, no sleep disturbances Respiratory: No cough, no shortness of air, no recurring pulmonary infections Cardiovascular/peripheral vascular: No chest pain, no palpitations, no edema, no shortness of breath Gastrointestinal: No new onset incontinence, normal bowel movements reported Genitourinary: No new onset incontinence Musculoskeletal: Left shoulder pain Psychiatric: [Normal mood/affect] Neurological: [Denies weakness in extremities], [denies balance issues] Pain at rest (0-10 scale): 6 Objective Objective:: Physical Exam: General: Alert and oriented x3, no acute distress, pleasant and cooperative Lungs: Respirations even and unlabored, symmetrical chest expansion Eyes: PERRL Musculoskeletal: Flexion and extension of left shoulder somewhat guarded secondary to pain, [antalgic gait noted] point tenderness noted around the anterior supraspinatus Neurological: Speech clear, no gross sensory deficit Has patient had previous pain injection?: No Conservative treatment options previously tried: Home exercise plan Length of treatment: Longer than 12 weeks Meds Home Medications and Allergies Home Medications ?Medication ?Instructions ?Recorded ?Confirmed ?Type blood-glucose meter (OneTouch #1 ea 02/20/23 08/18/24 Rx Ultra2 Meter) lancets 31 gauge #100 ea 02/20/23 08/18/24 Rx blood sugar diagnostic (Blood #50 ea 06/04/23 08/18/24 Rx Glucose Test strips) duloxetine 60 mg capsule,delayed 60 mg PO BID 12/15/23 08/18/24 History release lisinopril 5 mg tablet 5 mg PO DAILY 12/15/23 08/18/24 History sitagliptin phosphate 100 mg 100 mg PO DAILY 12/15/23 08/18/24 History tablet (Januvia) cyclobenzaprine 10 mg tablet 10 mg PO TID 02/26/24 08/18/24 History ketorolac 10 mg tablet 10 mg PO Q6H 02/26/24 08/18/24 History pantoprazole 20 mg tablet,delayed 20 mg PO DAILY #30 tabs 04/25/24 08/18/24 Rx release meloxicam 15 mg tablet 15 mg PO DIRECTED Pain 05/30/24 08/18/24 History oxybutynin chloride 10 mg 10 mg PO DAILY #90 tabs 05/30/24 08/18/24 Rx tablet,extended release 24 hr tadalafil 20 mg tablet (Cialis) 20 mg PO DAILY #14 tabs 05/30/24 08/18/24 Rx tamsulosin 0.4 mg capsule (Flomax) 0.4 mg PO DAILY 90 days #90 caps 05/30/24 08/18/24 Rx diltiazem HCl 120 mg 120 mg PO DAILY #30 caps 06/27/24 08/18/24 Rx capsule,extended release 24 hr tramadol 50 mg tablet 50 mg PO Q6H PRN Pain 06/27/24 08/18/24 History gabapentin 100 mg capsule 200 mg (2 x 100 mg) PO TID #180 08/18/24 Rx caps New Prescriptions to Start Prescriptions: Allergies Allergy/AdvReac Type Severity Reaction Status Date / Time metformin AdvReac Gastrointestinal Verified 08/03/24 07:45 Upset Assessment and Plan *Assessment and plan (1) Left shoulder pain: Status: Acute Category: Medical Code(s): M25.512 - Pain in left shoulder Plan Patient is experiencing worsening pain in his left shoulder with limited range of motion. Patient has seen orthopedics for this injury and did have 1 injection that he states did not seem to make much improvement. Patient is unsure what exactly it was. He has continued conservative treatment including oral medication, heat and ice, topicals, previous physical therapy and at home stretching exercise for longer than 12 weeks. I did discuss with the patient that I do believe he would benefit from a left suprascapular nerve block. Risk and benefits were discussed with the patient and he would like to proceed forward with this plan of care. I will also refill his gabapentin and change it to 300 mg 3 times a day. Patient is requesting the pharmacy be changed to [facility]. Patient will be scheduled for a left suprascapular nerve block without fluoroscopic or ultrasound guidance. Patient has been instructed to contact the clinic with any concerns before the next appointment. Dr. Hebert has reviewed this note and agrees with this plan of care. This note was dictated using voice recognition software and make contain errors or omissions. All injections are used with Lidocaine, Bupivacaine and dexamethasone. Occasionally urine drug screen is needed to verify patient's compliance with our office pain contract. This is ordered based off specific treatments related to chronic pain with the potential to abuse certain medications.
[2024-11-15 10:15] VITALS: BP 144/91; BP 162/96; PULSE 73; RESP 14; O2SAT 100; BMI 25.1
== END 2024-11-15 23:59 | disposition home or self-care (01) ==
PROVIDERS: Visit Provider Nurse Practitioner Family
DX: M25.512 Pain in left shoulder (principal); Z79.899 Other long term (current) drug therapy
CPT/HCPCS: 99212; G0463

== ENCOUNTER 2024-12-05 11:15 | Outpatient (POV) | payer MEDICAID, SELFPAY ==
[2024-12-05 11:22] VITALS: BP 140/90; PULSE 104; RESP 16; O2SAT 100; BMI 26.1
--- NOTE | 2024-12-05 11:44 | EXP.PAIN.SOA ---
[facility] Disclaimer: The information contained in this section may have been updated after the patient was seen, as this information can be updated by other users. Medical History Epistaxis Painful urination Left-sided nosebleed Vomiting Lower abdominal pain Pancreatitis Back pain Herniated disc Left-sided epistaxis Decreased sensation of foot Neuropathy Chronic sensorimotor polyneuropathy mainly of demyelinating type, moderate. Coronary artery calcification seen on CAT scan 2021 CTA chest-mild coronary artery calcification Diabetes mellitus, type 2 Hyperlipidemia Hypertension Surgical History History of nasal cauterization H/O arthroscopic knee surgery Family History Father Cancer Brain Ca; Grandmother Cancer Lung Ca; Other Alcoholism Asthma Coronary artery disease Diabetes Hyperlipidemia Hypertension No significant family history Social History Smoking Status: Never smoker alcohol intake: never substance use type: marijuana current occupational status: other Travel in the last 8 weeks?: None household members: spouse housing: house marital status: number of children: 7 caffeine: No do you feel safe at home: Yes victim of physical abuse: No victim of emotional abuse: No victim of sexual abuse: No would you like helpful sources: No PM Subjective & Objective Subjective Subjective:: Patient is a pleasant 53-year-old male who presents today for his medication refill and follow-up. Patient does state that the increase of the gabapentin to 300 mg 3 times a day did seem to help. He states that he does at least seem to make it a little bit more manageable. Patient denies any new falls however does state that he did get tangled up with his 100 pound dog and ended up pulling his upper 1:30 direction and feels like he is a lot more stoved up today. Patient denies any other changes. His Patricio has been reviewed and is appropriate. He is scheduled for his injection tomorrow of his shoulder. Review of Systems: General: No recent weight changes, no fever, no sleep disturbances Respiratory: No cough, no shortness of air, no recurring pulmonary infections Cardiovascular/peripheral vascular: No chest pain, no palpitations, no edema, no shortness of breath Gastrointestinal: No new onset incontinence, normal bowel movements reported Genitourinary: No new onset incontinence Musculoskeletal: Back pain Psychiatric: [Normal mood/affect] Neurological: [Denies weakness in extremities], [denies balance issues] Pain at rest (0-10 scale): 8 Objective Objective:: Physical Exam: General: Alert and oriented x3, no acute distress, pleasant and cooperative Lungs: Respirations even and unlabored, symmetrical chest expansion Eyes: PERRL Musculoskeletal: Flexion and extension of lumbar [spine] somewhat guarded secondary to pain, [antalgic gait noted] Neurological: Speech clear, no gross sensory deficit Has patient had previous pain injection?: No Conservative treatment options previously tried: Home exercise plan Length of treatment: Longer than 12 weeks Meds Home Medications and Allergies Home Medications ?Medication ?Instructions ?Recorded ?Confirmed ?Type blood-glucose meter (OneTouch #1 ea 02/20/23 12/05/24 Rx Ultra2 Meter) lancets 31 gauge #100 ea 02/20/23 12/05/24 Rx blood sugar diagnostic (Blood #50 ea 06/04/23 12/05/24 Rx Glucose Test strips) duloxetine 60 mg capsule,delayed 60 mg PO BID 12/15/23 12/05/24 History release lisinopril 5 mg tablet 5 mg PO DAILY 12/15/23 12/05/24 History sitagliptin phosphate 100 mg 100 mg PO DAILY 12/15/23 12/05/24 History tablet (Januvia) cyclobenzaprine 10 mg tablet 10 mg PO TID 02/26/24 12/05/24 History ketorolac 10 mg tablet 10 mg PO Q6H 02/26/24 12/05/24 History pantoprazole 20 mg tablet,delayed 20 mg PO DAILY #30 tabs 04/25/24 12/05/24 Rx release meloxicam 15 mg tablet 15 mg PO DIRECTED Pain 05/30/24 12/05/24 History oxybutynin chloride 10 mg 10 mg PO DAILY #90 tabs 05/30/24 12/05/24 Rx tablet,extended release 24 hr tadalafil 20 mg tablet (Cialis) 20 mg PO DAILY #14 tabs 05/30/24 12/05/24 Rx tamsulosin 0.4 mg capsule (Flomax) 0.4 mg PO DAILY 90 days #90 caps 05/30/24 12/05/24 Rx diltiazem HCl 120 mg 120 mg PO DAILY #30 caps 06/27/24 12/05/24 Rx capsule,extended release 24 hr tramadol 50 mg tablet 50 mg PO Q6H PRN Pain 06/27/24 12/05/24 History gabapentin 100 mg capsule 200 mg (2 x 100 mg) PO TID #180 08/18/24 12/05/24 Rx caps gabapentin 300 mg capsule 300 mg PO TID #90 caps 11/15/24 12/05/24 Rx New Prescriptions to Start Prescriptions: Allergies Allergy/AdvReac Type Severity Reaction Status Date / Time metformin AdvReac Gastrointestinal Verified 08/03/24 07:45 Upset Assessment and Plan *Assessment and plan (1) Left shoulder pain: Status: Acute Category: Medical Code(s): M25.512 - Pain in left shoulder (2) Degenerative disc disease, lumbar: Status: Chronic Category: Medical Code(s): M51.369 - Other intervertebral disc degeneration, lumbar region without mention of lumbar back pain or lower extremity pain (3) Degenerative disc disease, thoracic: Status: Chronic Category: Medical Code(s): M51.34 - Other intervertebral disc degeneration, thoracic region Plan I will refill the patient's gabapentin and change it to 4 times per day and provide a 3-month supply of this medication. I will also send in a 5-day dose of prednisone 20 mg twice daily. Patient is scheduled for an injection tomorrow and we will follow-up with him after that injection noted 2-week appointment. Patient agrees with this plan of care. Patient has been instructed to contact the clinic with any concerns before the next appointment. Dr. Hebert has reviewed this note and agrees with this plan of care. This note was dictated using voice recognition software and make contain errors or omissions. All injections are used with Lidocaine, Bupivacaine and dexamethasone. Occasionally urine drug screen is needed to verify patient's compliance with our office pain contract. This is ordered based off specific treatments related to chronic pain with the potential to abuse certain medications.
== END 2024-12-05 23:59 | disposition home or self-care (01) ==
PROVIDERS: Visit Provider Nurse Practitioner Family
DX: M25.512 Pain in left shoulder (principal); M51.360 Other intervertebral disc degeneration, lumbar region with discogenic back pain only; M51.34 Other intervertebral disc degeneration, thoracic region; Z79.899 Other long term (current) drug therapy
CPT/HCPCS: 99212; G0463

== ENCOUNTER 2024-12-06 10:40 | Day surgery (SDC) | payer MEDICAID, SELFPAY ==
[2024-12-06 10:52] VITALS: BP 135/88; PULSE 57; RESP 18; O2SAT 100; BMI 25.4
[2024-12-06 11:11] VITALS: BP 124/88; PULSE 91; RESP 18; O2SAT 97
[2024-12-06] MEDS: LIDOCAINE 1% 5ML PF VIAL 5 ML (11:11)
[2024-12-06] MEDS: BUPIVACAINE 0.25% 10ML INJ 25 MG IJ (11:11)
[2024-12-06] MEDS: DEXAMETHASONE 10MG/ML 1ML VIAL 10 MG (11:11)
[2024-12-06 11:13] VITALS: BP 124/88; PULSE 96; RESP 18; O2SAT 96
[2024-12-06 11:18] VITALS: BP 155/80; PULSE 95; RESP 18; O2SAT 97
--- NOTE | 2024-12-06 11:18 | EXP.PAIN.PRO ---
Procedure Date: 12/06/24 Time: 11:00 Anesthesiologist:: Sam Mercado CRNA Complications:: None Pre-procedure Diagnosis:: DJD left shoulder. Chronic left shoulder pain. Post-procedure Diagnosis:: Same. Indications for Procedure:: Patient is a very pleasant 53-year-old male who comes our clinic today for left suprascapular nerve block. Patient describes left shoulder pain as constant, dull, aching. He has 5/5 strength in the left arm. However, limited range of motion secondary to left shoulder pain. He rates his pain 7/10. Procedure Details:: Details of the procedure explained to the patient. The patient taken procedure and placed in the sitting position. The over the left shoulder and scapula was cleaned using chlorhexidine as a cleansing solution. Using a 25-gauge inch and half needle the left suprascapular notch was identified. After negative aspiration 4 cc of 1% lidocaine +4 cc of 0.25% Marcaine and 10 mg of dexamethasone was injected. Patient tolerated procedure without difficulty. No complications. Plan and Disposition:: Patient was discharged without incident.
== END 2024-12-06 11:18 | disposition home or self-care (01) ==
PROVIDERS: Visit Provider Nurse Anesthetist, Certified Registered
DX: G89.29 Other chronic pain (principal); M25.512 Pain in left shoulder; M19.012 Primary osteoarthritis, left shoulder; M54.50 Low back pain, unspecified; E11.9 Type 2 diabetes mellitus without complications; I10 Essential (primary) hypertension; E78.5 Hyperlipidemia, unspecified; I25.10 Atherosclerotic heart disease of native coronary artery without angina pectoris; G60.8 Other hereditary and idiopathic neuropathies; Z88.8 Allergy status to other drugs, medicaments and biological substances; Z79.84 Long term (current) use of oral hypoglycemic drugs; Z79.899 Other long term (current) drug therapy
CPT/HCPCS: 64418; J0665; J1100; J2003

== ENCOUNTER 2024-12-20 14:49 | Outpatient (POV) | payer MEDICAID, SELFPAY ==
[2024-12-20 15:01] VITALS: BP 125/68; PULSE 100; RESP 14; O2SAT 97; BMI 26.6
--- NOTE | 2024-12-20 15:35 | EXP.PAIN.SOA ---
[facility] Disclaimer: The information contained in this section may have been updated after the patient was seen, as this information can be updated by other users. Medical History Epistaxis Painful urination Left-sided nosebleed Vomiting Lower abdominal pain Pancreatitis Back pain Herniated disc Left-sided epistaxis Decreased sensation of foot Neuropathy Chronic sensorimotor polyneuropathy mainly of demyelinating type, moderate. Coronary artery calcification seen on CAT scan 2021 CTA chest-mild coronary artery calcification Diabetes mellitus, type 2 Hyperlipidemia Hypertension Surgical History History of nasal cauterization H/O arthroscopic knee surgery Family History Father Cancer Brain Ca; Grandmother Cancer Lung Ca; Other Alcoholism Asthma Coronary artery disease Diabetes Hyperlipidemia Hypertension No significant family history Social History Smoking Status: Never smoker alcohol intake: never substance use type: marijuana current occupational status: other Travel in the last 8 weeks?: None household members: spouse housing: house marital status: number of children: 7 caffeine: No do you feel safe at home: Yes victim of physical abuse: No victim of emotional abuse: No victim of sexual abuse: No would you like helpful sources: No PM Subjective & Objective Subjective Subjective:: Patient is a pleasant 53-year-old male who presents today for follow-up of his left suprascapular nerve block on 12/06/2024. He does relate that it did give 60% relief and feels like it is still helping some. He has noticed more pain within the shoulder joint itself. Patient does have a chronic history of shoulder pain but does also have a tear. He does state whether or not if we could try another injection for his shoulder he feels like it would help additionally. He states he is still having issues with some range of motion and that it does interfere with his ability perform activities of daily living such as cooking and cleaning. Patient denies any prior surgical intervention for his left shoulder. Patient is prescribed gabapentin 300 mg 4 times a day from our office. He denies any side effects. His Patricio has been reviewed and is appropriate. Review of Systems: General: No recent weight changes, no fever, no sleep disturbances Respiratory: No cough, no shortness of air, no recurring pulmonary infections Cardiovascular/peripheral vascular: No chest pain, no palpitations, no edema, no shortness of breath Gastrointestinal: No new onset incontinence, normal bowel movements reported Genitourinary: No new onset incontinence Musculoskeletal: Left shoulder pain Psychiatric: [Normal mood/affect] Neurological: [Denies weakness in extremities], [denies balance issues] Pain at rest (0-10 scale): 7 Objective Objective:: Physical Exam: General: Alert and oriented x3, no acute distress, pleasant and cooperative Lungs: Respirations even and unlabored, symmetrical chest expansion Eyes: PERRL Musculoskeletal: Flexion and extension of left shoulder somewhat guarded secondary to pain, [antalgic gait noted] Neurological: Speech clear, no gross sensory deficit Has patient had previous pain injection?: Yes Percent improvement in pain since last injection: 60% Conservative treatment options previously tried: Home exercise plan Length of treatment: Longer than 12 weeks Meds Home Medications and Allergies Home Medications ?Medication ?Instructions ?Recorded ?Confirmed ?Type blood-glucose meter (OneTouch #1 ea 02/20/23 12/20/24 Rx Ultra2 Meter) lancets 31 gauge #100 ea 02/20/23 12/20/24 Rx blood sugar diagnostic (Blood #50 ea 06/04/23 12/20/24 Rx Glucose Test strips) duloxetine 60 mg capsule,delayed 60 mg PO BID 12/15/23 12/20/24 History release lisinopril 5 mg tablet 5 mg PO DAILY 12/15/23 12/20/24 History sitagliptin phosphate 100 mg 100 mg PO DAILY 12/15/23 12/20/24 History tablet (Januvia) cyclobenzaprine 10 mg tablet 10 mg PO TID 02/26/24 12/20/24 History ketorolac 10 mg tablet 10 mg PO Q6H 02/26/24 12/20/24 History pantoprazole 20 mg tablet,delayed 20 mg PO DAILY #30 tabs 04/25/24 12/20/24 Rx release meloxicam 15 mg tablet 15 mg PO DIRECTED Pain 05/30/24 12/20/24 History oxybutynin chloride 10 mg 10 mg PO DAILY #90 tabs 05/30/24 12/20/24 Rx tablet,extended release 24 hr tadalafil 20 mg tablet (Cialis) 20 mg PO DAILY #14 tabs 05/30/24 12/20/24 Rx tamsulosin 0.4 mg capsule (Flomax) 0.4 mg PO DAILY 90 days #90 caps 05/30/24 12/20/24 Rx diltiazem HCl 120 mg 120 mg PO DAILY #30 caps 06/27/24 12/20/24 Rx capsule,extended release 24 hr tramadol 50 mg tablet 50 mg PO Q6H PRN Pain 06/27/24 12/20/24 History gabapentin 100 mg capsule 200 mg (2 x 100 mg) PO TID #180 08/18/24 12/20/24 Rx caps gabapentin 300 mg capsule 300 mg PO TID #120 caps 12/05/24 12/20/24 Rx prednisone 20 mg tablet 20 mg PO BID #10 tabs 12/05/24 12/20/24 Rx New Prescriptions to Start Prescriptions: Allergies Allergy/AdvReac Type Severity Reaction Status Date / Time metformin AdvReac Gastrointestinal Verified 08/03/24 07:45 Upset Assessment and Plan *Assessment and plan (1) Left shoulder pain: Status: Acute Category: Medical Code(s): M25.512 - Pain in left shoulder Plan Patient has had significant improvement with the suprascapular nerve block but is having more pain directly around the shoulder joint itself. He did have limited range of motion during today's visit. I did discuss with the patient that he may benefit from a intra-articular shoulder injection. Risk and benefits were discussed with the patient would like to proceed forward with this plan of care. Patient has tried and failed conservative therapy including oral medication, heat and ice, topicals, at home stretching exercise for longer than 12 weeks. Patient has had chronic shoulder pain for longer than 3 months. Patient will be submitted for a left intra-articular shoulder injection without fluoroscopic or ultrasound guidance. Patient has been instructed to contact the clinic with any concerns before the next appointment. Dr. Hebert has reviewed this note and agrees with this plan of care. This note was dictated using voice recognition software and make contain errors or omissions. All injections are used with Lidocaine, Bupivacaine and dexamethasone. Occasionally urine drug screen is needed to verify patient's compliance with our office pain contract. This is ordered based off specific treatments related to chronic pain with the potential to abuse certain medications.
== END 2024-12-20 23:59 | disposition home or self-care (01) ==
LOC: SC.PAIN 14:50
PROVIDERS: Visit Provider Nurse Practitioner Family
DX: M25.512 Pain in left shoulder (principal); Z79.899 Other long term (current) drug therapy

== ENCOUNTER 2025-01-24 09:56 | Day surgery (SDC) | payer MEDICAID, SELFPAY ==
[2025-01-24 09:50] VITALS: BP 144/88; PULSE 92; RESP 18; O2SAT 98; BMI 25.8
[2025-01-24 10:05] VITALS: BP 154/95; PULSE 96; RESP 18; O2SAT 97
[2025-01-24] MEDS: BUPIVACAINE 0.25% 10ML INJ 25 MG IJ (10:09)
[2025-01-24] MEDS: LIDOCAINE 1% 5ML PF VIAL 5 ML (10:09)
[2025-01-24] MEDS: DEXAMETHASONE 10MG/ML 1ML VIAL 10 MG (10:09)
--- NOTE | 2025-01-24 10:09 | EXP.PAIN.PRO ---
Procedure Date: 01/24/25 Time: 10:10 Anesthesiologist:: Ovi Mercado CRNA Complications:: None Pre-procedure Diagnosis:: DJD left shoulder. Chronic left shoulder pain. Rotator cuff tear left shoulder. Post-procedure Diagnosis:: Same. Indications for Procedure:: Patient is a very pleasant 54-year-old male who comes our clinic today for a left intra-articular shoulder injection. Patient has 5/5 strength in left arm. However, limited range of motion secondary to chronic left shoulder pain. He reports responding well to previous intra-articular injections in the left shoulder. He rates his pain 6/10. Procedure Details:: Procedure Details: Left shoulder intra-articular injection Informed consent was obtained risk and benefits of the procedure were explained to the patient. Patient was taken to the procedure room. The Left shoulder was prepped using ChloraPrep. A 25-gauge needle was used posteriorly to inject 10 mL bupivacaine 0.25% and 10 mg of dexamethasone. Patient tolerated procedure well with no complications. Plan and Disposition:: Patient was discharged without incident.
[2025-01-24 10:18] VITALS: BP 139/86; PULSE 87; RESP 18; O2SAT 100
== END 2025-01-24 10:18 | disposition home or self-care (01) ==
PROVIDERS: Visit Provider Nurse Practitioner Family
DX: M19.012 Primary osteoarthritis, left shoulder (principal); M75.102 Unspecified rotator cuff tear or rupture of left shoulder, not specified as traumatic; G89.29 Other chronic pain; E11.42 Type 2 diabetes mellitus with diabetic polyneuropathy; I10 Essential (primary) hypertension; I25.10 Atherosclerotic heart disease of native coronary artery without angina pectoris; Z88.8 Allergy status to other drugs, medicaments and biological substances; Z79.1 Long term (current) use of non-steroidal anti-inflammatories (NSAID); Z79.899 Other long term (current) drug therapy
CPT/HCPCS: 20610; J0665; J1100; J2003

== ENCOUNTER 2025-03-31 08:19 | Outpatient (CLI) | payer MEDICAID, SELFPAY ==
--- OUTSIDE RECORDS SUMMARY | 2025-03-31 08:22 | XMS_ITS | Data Portability ---
Author Organization [facility] [employer] [place] [facility] [place] Address [address] [place] [address] Assessment Encounter Date Assessment Date Assessment LastModified by Organization Details LastModified Time 11/04/2024 11/04/2024 Follow up in 2 months for a1c, annual wellness and foot exam Not available 11/04/2024 09:34:44 Plan of Treatment Reminders Order Date Submit Date Provider Last Modified By Organization Details Last Modified Time Details Appointments None recorded. Lab HbA1c (hemoglobin A1c), blood [address], [address], 5 09:22:12 lipid panel, serum 2024 025 [facility], [address] [place] [address], [address], 5 04:08:40 HbA1c (hemoglobin A1c), blood [address], [address], 5 12:04:20 CMP, serum or plasma 2024 025 [facility], [address] [place] [address], [address], 04:08:39 CBC w/ auto diff 2024 [facility], [address] [facility], [place], [address], 04:08:38 Referral None recorded. Procedures None recorded. Surgeries None recorded. Imaging None recorded. Medication Orders losartan 50 mg tablet 2024 [facility], [address] [place] [address], [address], 14:03:58 losartan 25 mg tablet 2024 [facility], [address] [place] [address], [address], 13:55:16 Januvia 50 mg tablet 2024 025 [facility], [address] [place] [address], [address], 14:56:56 lisinopril 5 mg tablet 2024 [email or web address] [place] [address], [address] [place] [address], [address], 09:07:06 pantoprazol e 40 mg tablet,adolph yed release 2024 025 [facility], [address] [place] [address], [address], 14:56:56 Patient TargetsNo targets recorded. Patient Instructions Encounter Date Encounter Id Patient Instructions Last Modified By Organization Details Last Modified Time 09/29/2024 [id number] learning about t ype 2 diabetes Not available 09/29/2024 12:04:20 type 2 diabetes: care instructions Not available 09/29/2024 12:04:20 high blood press ure: care instructions Not available 09/29/2024 12:04:21 learning about h igh blood pressure Not available 09/29/2024 12:04:21 gastroesophageal reflux disease (GERD): care instructions Not available 09/29/2024 14:48:53 11/04/2024 [id number] learning about t ype 2 diabetes Not available 11/04/2024 09:15:57 type 2 diabetes: care instructions Not available 11/04/2024 09:15:57 high blood press ure: care instructions Not available 11/04/2024 09:15:57 learning about h igh blood pressure Not available 11/04/2024 09:15:57 01/26/2025 [id number] learning about t ype 2 diabetes Not available 01/27/2025 13:05:55 type 2 diabetes: care instructions Not available 01/27/2025 13:05:55 high blood press ure: care instructions Not available 01/27/2025 13:05:55 learning about h igh blood pressure Not available 01/27/2025 13:05:55 02/03/2025 [id number] learning about t ype 2 diabetes Not available 02/03/2025 09:22:12 type 2 diabetes: care instructions Not available 02/03/2025 09:22:12 high blood press ure: care instructions Not available 02/03/2025 09:22:12 learning about h igh blood pressure Not available 02/03/2025 09:22:12 02/16/2025 [id number] high blood press ure: care instructions Not available 02/16/2025 16:07:35 learning about h igh blood pressure Not available 02/16/2025 16:07:35 Reason for Referral None Reported. Results Created Date Observation Date Name Description Value Unit Range Abnormal Flag Note LastModifiedBy Organization Detail LastModifiedTime 09/30/19 25 09/29/2024 HbA1c (hemo globi n A1c), blood HbA1c 7.3 Not Available [address], [address], 09/29/2024 11:22:37 10/01/19 25 10/01/2024 CBC WITH DIFFE RENTI AL/PL ATELE T WBC 5.0 x10e3 /uL 3.4-10 .8 normal Not Available [facility] ([facility]) [address] [place], [address], 10/01/2024 04:08:38 10/01/19 25 10/01/2024 CBC WITH DIFFE RENTI AL/PL ATELE T RBC 5.14 x10e6 /uL 4.14-5 .80 normal Not Available [facility] ([facility]) [address] [place], [address], 10/01/2024 04:08:38 10/01/19 25 10/01/2024 CBC WITH DIFFE RENTI AL/PL ATELE T hemoglobin 16.1 g/dL 13.0-1 7.7 normal Not Available [facility] ([facility]) [address] [place], [address], 10/01/2024 04:08:38 10/01/19 25 10/01/2024 CBC WITH DIFFE RENTI AL/PL ATELE T hematocrit 49.2 % 37.5-5 1.0 normal Not Available [facility] ([facility]) [address] [place], [address], 10/01/2024 04:08:38 10/01/1910/01/2024 CBC WITH DIFFE RENTI AL/PL ATELE T MCV 96 fL 79-97 normal Not Available [facility] ([facility]) [address] [place], [address], 10/01/2024 04:08:38 10/01/19 25 10/01/2024 CBC WITH DIFFE RENTI AL/PL ATELE T MCH 31.3 pg 26.6-3 3.0 normal Not Available [facility] ([facility]) [address] [facility] [place], [address], 10/01/2024 04:08:38 10/01/19 25 10/01/2024 CBC WITH DIFFE RENTI AL/PL ATELE T MCHC 32.7 g/dL 31.5-3 5.7 normal Not Available [facility] ([facility]) [address] [facility], [place], [address], 10/01/2024 04:08:38 10/01/19 25 10/01/2024 CBC WITH DIFFE RENTI AL/PL ATELE T RDW 13.1 % 11.6-1 5.4 Not Available [facility] ([facility]) [address] [facility], [place], [address], 10/01/2024 04:08:38 10/01/19 25 10/01/2024 CBC WITH DIFFE RENTI AL/PL ATELE T platelets 160 x10e3 /uL 150-45 0 normal Not Available [facility] ([facility]) [address] [facility], [place], [address], 10/01/2024 04:08:38 10/01/19 25 10/01/2024 CBC WITH DIFFE RENTI AL/PL ATELE T neutrophils 57 % not estab. normal Not Available [facility] ([facility]) [address] [place], [address], 10/01/2024 04:08:38 10/01/19 25 10/01/2024 CBC WITH DIFFE RENTI AL/PL ATELE T lymphs 30 % not estab. normal Not Available [facility] ([facility]) [address] [place], [address], 10/01/2024 04:08:38 10/01/19 25 10/01/2024 CBC WITH DIFFE RENTI AL/PL ATELE T monocytes 11 % not estab. normal Not Available [facility] ([facility]) [address] [place], [address], 10/01/2024 04:08:38 10/01/19 25 10/01/2024 CBC WITH DIFFE RENTI AL/PL ATELE T eos 1 % not estab. normal Not Available [facility] ([facility]) [address] [place], [address], 10/01/2024 04:08:38 10/01/19 25 10/01/2024 CBC WITH DIFFE RENTI AL/PL ATELE T basos 1 % not estab. normal Not Available [facility] ([facility]) [address] [place], [address], 10/01/2024 04:08:38 10/01/19 25 10/01/2024 CBC WITH DIFFE RENTI AL/PL ATELE T immature cells CPR INSTRUCTOR Not Available [facility] ([facility]) [address] [place], [address], 10/01/2024 04:08:38 10/01/19 25 10/01/2024 CBC WITH DIFFE RENTI AL/PL ATELE T neutrophils (absolute) 2.8 x10e3 /uL 1.4-7. 0 normal Not Available [facility] ([facility]) [address] [place], [address], 10/01/2024 04:08:38 10/01/19 25 10/01/2024 CBC WITH DIFFE RENTI AL/PL ATELE T lymphs (absolute) 1.5 x10e3 /uL 0.7-3. 1 normal Not Available [facility] ([facility]) [address] [place], [address], 10/01/2024 04:08:38 10/01/19 25 10/01/2024 CBC WITH DIFFE RENTI AL/PL ATELE T monocytes(ab solute) 0.6 x10e3 /uL 0.1-0. 9 normal Not Available [facility] ([facility]) [address] [place], [address], 10/01/2024 04:08:38 10/01/19 25 10/01/2024 CBC WITH DIFFE RENTI AL/PL ATELE T eos (absolute) 0.1 x10e3 /uL 0.0-0. 4 normal Not Available [facility] ([facility]) [address] [facility], [place], [address], 10/01/2024 04:08:38 10/01/19 25 10/01/2024 CBC WITH DIFFE RENTI AL/PL ATELE T baso (absolute) 0.0 x10e3 /uL 0.0-0. 2 normal Not Available [facility] ([facility]) [address] [facility], [place], [address], 10/01/2024 04:08:38 10/01/19 25 10/01/2024 CBC WITH DIFFE RENTI AL/PL ATELE T immature granulocytes 0 % not estab. Not Available [facility] ([facility]) [address] [facility], [place], [address], 10/01/2024 04:08:38 10/01/19 25 10/01/2024 CBC WITH DIFFE RENTI AL/PL ATELE T immature grans (abs) 0.0 x10e3 /uL 0.0-0. 1 Not Available [facility] ([facility]) [address] [place], [address], 10/01/2024 04:08:38 10/01/19 25 10/01/2024 CBC WITH DIFFE RENTI AL/PL ATELE T NRBC CPR INSTRUCTOR Not Available [facility] ([facility]) [address] [place], [address], 10/01/2024 04:08:38 10/01/19 25 10/01/2024 CBC WITH DIFFE RENTI AL/PL ATELE T hematology comments: CPR INSTRUCTOR Not Available [facility] ([facility]) [address] [place], [address], 10/01/2024 04:08:38 10/01/19 25 10/01/2024 COMP. METAB OLIC PANEL (14) glucose 143 mg/dL 70-99 above high normal Not Available [facility] ([facility]) [address] [place], [address], 10/01/2024 04:08:39 10/01/19 25 10/01/2024 COMP. METAB OLIC PANEL (14) BUN 16 mg/dL 6-24 normal Not Available [facility] ([facility]) [address] [place], [address], 10/01/2024 04:08:39 10/01/19 25 10/01/2024 COMP. METAB OLIC PANEL (14) creatinine 0.78 mg/dL 0.76-1 .27 normal Not Available [facility] ([facility]) [address] [place], [address], 10/01/2024 04:08:39 10/01/19 25 10/01/2024 COMP. METAB OLIC PANEL (14) eGFR 106 mL/mi n/1.7 3 >59 normal Not Available [facility] ([facility]) [address] [place], [address], 10/01/2024 04:08:39 10/01/19 25 10/01/2024 COMP. METAB OLIC PANEL (14) BUN/creatini ne ratio 21 9-20 above high normal Not Available [facility] ([facility]) [address] [place], [address], 10/01/2024 04:08:39 10/01/19 25 10/01/2024 COMP. METAB OLIC PANEL (14) sodium 140 mmol/ L 134-14 4 normal Not Available [facility] ([facility]) [address] [place], [address], 10/01/2024 04:08:39 10/01/19 25 10/01/2024 COMP. METAB OLIC PANEL (14) potassium 4.4 mmol/ L 3.5-5. 2 normal Not Available [facility] ([facility]) [address] [facility] [place], [address], 10/01/2024 04:08:39 10/01/19 25 10/01/2024 COMP. METAB OLIC PANEL (14) chloride 102 mmol/ L 96-106 normal Not Available [facility] ([facility]) [address] [facility] [place], [address], 10/01/2024 04:08:39 10/01/19 25 10/01/2024 COMP. METAB OLIC PANEL (14) carbon dioxide, total 22 mmol/ L 20-29 normal Not Available [facility] ([facility]) [address] [facility] [place], [address], 10/01/2024 04:08:39 10/01/19 25 10/01/2024 COMP. METAB OLIC PANEL (14) calcium 9.7 mg/dL 8.7-10 .2 normal Not Available [facility] ([facility]) [address] [facility] [place], [address], 10/01/2024 04:08:39 10/01/19 25 10/01/2024 COMP. METAB OLIC PANEL (14) protein, total 6.7 g/dL 6.0-8. 5 normal Not Available [facility] ([facility]) [address] [facility] [place], [address], 10/01/2024 04:08:39 10/01/19 25 10/01/2024 COMP. METAB OLIC PANEL (14) albumin 4.5 g/dL 3.8-4. 9 normal Not Available [facility] ([facility]) [address] [facility] [place], [address], 10/01/2024 04:08:39 10/01/19 25 10/01/2024 COMP. METAB OLIC PANEL (14) globulin, total 2.2 g/dL 1.5-4. 5 Not Available [facility] ([facility]) [address] [facility] [place], [address], 10/01/2024 04:08:39 10/01/19 25 10/01/2024 COMP. METAB OLIC PANEL (14) bilirubin, total 0.5 mg/dL 0.0-1. 2 normal Not Available [facility] ([facility]) [address] [facility] [place], [address], 10/01/2024 04:08:39 10/01/19 25 10/01/2024 COMP. METAB OLIC PANEL (14) alkaline phosphatase 106 IU/L 44-121 normal Not Available [facility] ([facility]) [address] [facility] [place], [address], 10/01/2024 04:08:39 10/01/19 25 10/01/2024 COMP. METAB OLIC PANEL (14) AST (SGOT) 15 IU/L 0-40 normal Not Available [facility] ([facility]) [address] [facility] [place], [address], 10/01/2024 04:08:39 10/01/19 25 10/01/2024 COMP. METAB OLIC PANEL (14) ALT (SGPT) 14 IU/L 0-44 normal Not Available [facility] ([facility]) [address] [facility] [place], [address], 10/01/2024 04:08:39 10/01/19 25 10/01/2024 LIPID PANEL cholesterol, total 193 mg/dL 100-19 9 normal Not Available [facility] ([facility]) [address] [facility] [place], [address], 10/01/2024 04:08:40 10/01/19 25 10/01/2024 LIPID PANEL triglyceride s 182 mg/dL 0-149 above high normal Not Available [facility] ([facility]) [address] [facility] [place], [address], 10/01/2024 04:08:40 10/01/19 25 10/01/2024 LIPID PANEL HDL cholesterol 46 mg/dL >39 normal Not Available [facility] ([facility]) [address] [facility], [place], [address], 10/01/2024 04:08:40 10/01/19 25 10/01/2024 LIPID PANEL VLDL cholesterol rosa 32 mg/dL 5-40 Not Available [facility] ([facility]) [address] [facility], [place], [address], 10/01/2024 04:08:40 10/01/19 25 10/01/2024 LIPID PANEL LDL chol calc ([facility]) 115 mg/dL 0-99 above high normal Not Available [facility] ([facility]) [address] [facility], [place], [address], 10/01/2024 04:08:40 10/01/19 25 10/01/2024 LIPID PANEL LDL calc comment: CPR INSTRUCTOR Not Available [facility] ([facility]) [address] [facility], [place], [address], 10/01/2024 04:08:40 02/04/20 25 02/03/2025 HbA1c (hemo globi n A1c), blood HbA1c 7.1% Not Available [address], [address], 02/03/2025 09:11:48 Result Notes None recorded. Problems Name Problem SNOMED Code Status Onset Date Resolution Date Notes Provider Name and Address Organization Details Recorded Time Gastroesophage al reflux disease without esophagitis 609816736 Active 2024 KEITH PHAN NP [address] [place], [address], [facility] [employer] 11:54:59 Essential hypertension 51238930 Active 2024 KEITH PHAN NP [address] [place], [address], [employer] 5 11:55:52 Type 2 diabetes mellitus 06551118 Active 2024 KEITH CARNEYLONNIE MARCUS [address] [place], [address], [employer] 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 5 08:15:29 Problem Notes None recorded. Medical Equipment None Reported. Allergies Allergen ID Allergen Name Allergen Category Reaction Reaction Severity Criticality Documentation Date Start Date Code Code System Note Provider Name and Address Organization Details Recorded Time 69729 aspirin medicatio n Not available Not available Not available 09/29/2024 1191 RxNorm Sharon Trudi [employer] 11:09:07 98121 Jardiance medicatio n Not available Not available Not available 09/29/2024 48015 59 RxNorm Sharon Trudi [facility] 11:09:18 25676 metformin medicatio n Not available Not available Not available 09/29/2024 6809 RxNorm Sharon Trudi [facility] 11:09:28 53551 fentanyl medicatio n Not available Not available Not available 09/29/2024 4337 RxNorm Sharon Trdui [facility] 11:09:47 Medications Name Sig Start Date Stop Date Status Note LastModified by Organization Details LastModified Time losartan 50 mg tablet TAKE 1 TABLET BY MOUTH EVERY DAY 2024 active Not Available Not Available Not Avai lable cyclobenzap rine 10 mg tablet TAKE 1 [...] completed Not Available Not Available Not Available prednisone 20 mg tablet TAKE 1 TABLET BY MOUTH TWICE DAILY active Not Available Not Available No t Available tramadol 50 mg tablet TAKE 1 [...] Not Available Not Available No t Available losartan 25 mg tablet TAKE 1 TABLET BY MOUTH EVERY DAY active Not Available Not Available No t Available gabapentin 300 mg capsule TAKE 1 CAPSULE BY MOUTH 4 TIMES DAILY active Not Available Not Available No t Available lisinopril 5 mg tablet TAKE ONE TABLET BY MOUTH EVERY DAY 02/03 completed Not Available Not Available Not Available gabapentin 100 mg capsule TAKE 2 [...] TABLET BY MOUTH ONCE DAILY ADMINISTE Dejah YUN TELY 60 MINUTES BEFORE SEXUAL ACTIVITY. DO [...] blood by Pulse oximetry Body temperature Systolic And Diastolic Provider Name and Address Organization Details Last Updated DateTime 5 59224.5 8 g 25.6 kg/m2 175.26 cm 101 /min 97 % 97 % 98.3 [degF] 115/75 mm[Hg] Sharon Trudi [employer] 11:13:24 Date Recorded Body height Provider Name an d Address Organization Details Last Updated DateTime 11/04/2024 175.26 cm Massiel Longoria [employer] 11/04/2024 08:32:19 Date Recorded Body mass index (BMI) Body weight Body temperature Heart rate Oxygen saturation Oxygen saturation in Arterial blood by Pulse oximetry Systolic And Diastolic Systolic And Diastolic Provider Name and Address Organization Details Last Updated DateTime 5 25.5 kg/m2 17847.9 9 g 96.3 [degF] 87 /min 98 % 98 % 179/79 mm[Hg] 126/88 mm[Hg] [employer] 5 08:46:37 Date Recorded Body height Body mass index (BMI) Body weight Oxygen saturation Oxygen saturation in Arterial blood by Pulse oximetry Heart rate Body temperature Systolic And Diastolic Provider Name and Address Organization Details Last Updated DateTime 5 175.26 cm 26.5 kg/m2 72326.8 3 g 98 % 98 % 89 /min 97.5 [degF] 127/88 mm[Hg] [employer] 5 10:34:35 Date Recorded Body height Body mass index (BMI) Body weight Oxygen saturation Oxygen saturation in Arterial blood by Pulse oximetry Heart rate Body temperature Systolic And Diastolic Systolic And Diastolic Provider Name and Address Organization Details Last Updated DateTime 5 175.26 cm 26.6 kg/m2 89809.0 3 g 98 % 98 % 74 /min 95.9 [degF] 155/90 mm[Hg] 153/100 mm[Hg] [employer] 5 09:06:47 Date Recorded Body height Body height Body mass index (BMI) Body weight Oxygen saturation Oxygen saturation in Arterial blood by Pulse oximetry Heart rate Body temperature Systolic And Diastolic Systolic And Diastolic Provider Name and Address Organization Details Last Updated DateTime 175.26 cm 175.26 cm 26.9 kg/m2 22537.8 1 g 97 % 97 % 86 /min 97.8 [degF] 149/88 mm[Hg] 146/91 mm[Hg] Elisabeth Mckeon [employer] 15:57:20 Social History Question Answer Notes LastModified by Organizat ion Details LastModified Time Tobacco Smoking Status Never Smoker Sharon vargas [employer] 09/29/2024 11:10:40 Do You Have An Advance Directive? No Information not available 09/29/2024 Is Your Home Air Conditioned? Yes Information not available 09/29/2024 Do You Wear A Helmet When Biking? No Information not available 09/29/2024 Are You Blind Or Do You Have Difficulty Seeing? Yes Information not available 09/29/2024 What Is Your Level Of Caffeine Consumption? Moderate Information not available 09/29/2024 Are You A Caregiver? No [email or web address] Information not available 02/16/2025 What Type Of Micro Lab Analyst Do You Use? None Information not available 09/29/2024 In The 14 Days Before Symptom Onset, Have You Had Close Contact With A Laboratory-confir med COVID-19 While That Case Was Ill? No Information not available 09/29/2024 In The 14 [...] Of Diet Are You Following? REGULAR Information not available 09/29/2024 Which Illicit Or Recreational Drugs Have You Used? Medical Information not available 09/29/2024 What Is The Highest Grade Or Level Of School You Have Completed Or The Highest Degree You Have Received? [id number] Information not available 09/29/2024 How Many Days Of Moderate To Strenuous Exercise, Like A Brisk Walk, Did You Do In The Last 7 Days? 5 [email or web address] Information not available 02/16/2025 On Those Days That You Engage In Moderate To Strenuous Exercise, How Many Minutes, On Average, Do You Exercise? 15 [email or web address] Information not available 02/16/2025 Have There Been Any Changes To Your Family Or Social Situation? Yes Information no t available 09/29/2024 Are There Any Guns Present In Your Home? No Information not available 09/29/2024 Which Of Your Hands Is Dominant? Right Information not available 09/29/2024 Do You Engage In Moderate/heavy Exercise (e.g. Brisk Walk, Jogging, Strength Training, Etc)? Yes [email or web address] Information not available 02/16/2025 What Is Your Home Situation? Other Information not available 09/29/2024 How Many Times In The Past Year Have You Used An Illegal Drug Or Used A Prescription Medication For Nonmedical Reasons? 0 [email or web address] Information not available 02/16/2025 How Many Years Have You Used Illicit Or Recreational Drugs? 35 Information not available 09/29/2024 Where Do You Live? SingleLevelHouse [email or web address] Information not available 02/16/2025 Are You Following A Low Salt Diet? Yes [email or web address] Information not available 02/16/2025 Do You Have A Medical Power Of Senior Data Analyst? No Information not available 09/29/2024 What Was The Date Of Your Most Recent Tobacco Screening? 02/16/2025 [email or web address] Information not available 02/16/2025 Do You Have Any Pets? No Information not available 09/29/2024 Do You Use Protection During Sex? No Information not available 09/29/2024 What Is Your Relationship Status? Information not available 09/29/2024 Have You Repeated Any Grades? No Information not available 09/29/2024 Do You Wear A Seatbelt When Driving Or As A Passenger? Yes [email or web address] Information not available 02/16/2025 Do You Use Your Seat Belt Or [...] Social Media? No Information not available 09/29/2024 What Types Of Sporting Activities Do You Participate In? None [email or web address] Information not available 02/16/2025 Do You Use Sunscreen Routinely? No Information not available 09/29/2024 Has Tobacco Cessation Counseling Been Provided? No Information not available 09/29/2024 Have You Recently Traveled Abroad? No Information not available 09/29/2024 Have You Used IV Drugs? No Information not available 09/29/2024 Do You Have Difficulty Walking Or Climbing Stairs? Yes Information not available 09/29/2024 Do You Feel Safe In Your Home? Yes [email or web address] Information not available 02/16/2025 Do You Have Any Dietary Restrictions? Yes [email or web address] Information not available 02/16/2025 Sex: Unknown Functional Status Question Answer Note [...] currently employed? No Information not available 09/29/2024 Do you have transportation difficulties? No [email or web address] Information not available 02/16/2025 Are you able to walk independently without assistance or assistive devices? [email or web address] Information not available 09/29/2024 Do you have difficulty doing errands alone? No Information not available 09/29/2024 Are you able to care for yourself independently? Yes Information not available 09/29/2024 Do you have difficulty dressing, bathing, grooming, or toileting? No Information not available 09/29/2024 What is your exercise level? Moderate Information not available 09/29/2024 Mental Status Question Answer Note LastModified by Organizat ion Details LastModified Time Do you feel stressed (tense, restless, nervous, or anxious, or unable to sleep at night)? [id number] Information not available 02/16/2025 Do you have difficulty concentrating, remembering or making decisions? No Information no t available 09/29/2024 Are you or have you been involved with bullying? Yes Information not available 09/29/2024 Family History Nothing Reported. Medical History Condition Response Coronary Artery Disease N Other N Gout N Kidney Stones N Blood Diseases N Hyperthyroidism N Breast Cancer N Blood Transfusion N Emergency room visit since last appointm ent. N Hypothyroidism N Lung Disease N Dermatologic Disorders N Depression N COPD N Developmental or Behavioral Disorders N Defects or Inherited Disease N Breast Problem N Difficulty Swallowing N Anesthesia Complications N History of STI N Anxiety Disorder N Meniere's disease N Autoimmune disease N Muscle, Joint, or Bone Problems N Vision or Eye Problems N Arthritis N Infertility N Polyps N Mental Disorder N Congenital Anomalies N Acid Reflux (GERD) N Cancer N Stroke N Neurologic/Epilepsy N Endometriosis N Bladder or Kidney Problems N High Cholesterol N Liver Disease N Organ Transplant N Psychiatric/Mental Health Condition N Fibromyalgia N Headaches N Schizophrenia N Dialysis N Kidney Disease N Allergies/Hayfever N Heart Problems N Ear or Hearing Problems N Hospitalizations N Learning Disorder N Artificial Joints N Thyroid Problems N GI Problems N Acne N ADD/ADHD N Eating Disorder N Anemia N Constipation N Mental Illness N Ovarian Cancer N Diabetes N Bedwetting N Hepatitis/Liver Disease N Tuberculosis N Eczema N Diverticulitis N Abuse/Domestic Violence N Asthma N Trauma/Violence N Substance Abuse N Amnesia/Cognitive Decline N Reflux/GERD N Depression/ depression N Hepatitis N Heart Disease N Pulmonary Embolism N Tourette Syndrome N Pre-Eclampsia N Hypertension N Chronic Ear Infections N Osteoporosis N Chicken Pox N Autism Spectrum Disorder (ASD) N Thrombophilias N Immunizations Vaccine Type Date Status Note Provider Nam e and Address Organization Details Recorded Time Hep B, adult 01/20/2008 completed Not Available [facility] 02/16/2025 15:54:03 Hep B, adult 02/22/2008 completed Not Available [facility] 02/16/2025 15:54:03 Hep B, adult 06/26/2008 completed Not Available [facility] 02/16/2025 15:54:03 Past Encounters Encounter ID Performer Location Encounter Start Date Encounter Closed Date Diagnosis/Indication Diagnosis SNOMED-CT Code Diagnosis ICD10 Code Diagnosis IMO Codes Diagnosis Note [id number] KEITH PHAN NP [address] [address] 09/29/2024 10:44:24 09/29/2024 17:27:35 Gastroesophageal reflux disease without esophagitis 735656586 K21.9 704010 Essential hypertension 20456052 I10 10706 Type 2 can betes mellitus 95985709 E11.9 [id number] Has previously tried metformin but was unable to tolerate. Hyperlipid emia screening 243048538 Z13.220 839807 [id number] KEITH PHAN NP [address] [address] 11/04/2024 08:19:58 11/04/2024 10:02:14 Essential hypertension 12027428 I10 31516 Continue to monitor salt intake, recommend 30 min of exercise 4-5 days per week.Monit or blood pressure a few times per week and bring log back in for next visit to review. Type 2 can betes mellitus 32627517 E11.9 [id number] Has previously tried metformin but was unable to tolerate.R estartsingh Del Valle, denies side effects. [id number] KEITH PHAN NP [address] [place] [address] 01/26/2025 10:14:22 01/30/2025 14:44:18 Essential hypertension 07987630 I10 61334 Patient driven decision to stop lisinopril . Will keep blood pressure log for 1 week and return for follow up to discuss further BP maintenanc e.Watch sodium intake, be especially aware of sodium in foods that are pre packaged. Choose fresh or frozen vegetables over canned. Type 2 can betes mellitus 40306905 E11.9 [id number] Continue to take medication s as ordered. Discussed impact that good blood pressure control can have on preventing diabetes related complicati ons. [id number] KEITH PHAN NP [place] [address] 02/03/2025 08:53:24 02/03/2025 12:27:11 Type 2 diabetes mellitus 32776682 E11.9 [id number] Continue to take medication s as ordered. Discussed impact that good blood pressure control can have on preventing diabetes related complicati ons. A1c is 7.1, down form 7.3% at last visit. Essential hypertension 82495078 I10 19694 Starting medication as ordered below, will obtain new blood pressure cuff.Follo w up in 2 weeks. [id number] [place] [address] 02/16/2025 15:43:07 02/16/2025 16:12:53 Essential hypertension 50116341 I10 49881 stop losartan 25, start losartan 50 daily. 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 Discussed importance of a well controlled blood gluose and blood pressure. 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 Past medical history includes chronic back pain (follows with pain management at [facility] and site acquisition specialist in [facility]), shoulder pain, erectile dysfunction as well as the following:hypertens ion: takes 5mg lisinopril daily. States he needs refills as he is now out. Denies dry cough or swelling with lisinopril use. Denies headache, blurry or changing vision, and chest pain.History of Afib. Has seen cardiology in the past. Patient adamantly declines ASA, antiarrhythmic, and anticoagulant use. States [facility] cardiology repeatedly discussed need for these medication [...] acute complaints today. KEITH PHAN NP [address] [place], [address], [employer]. 09/29/2024 14:50:15 11/04/2024 text/html ROS as noted in the HPI presents today for follow up after establishing care visit. Reports tolerating restart of januvia well. Previously took it, however did not take it for some time due to financial reasons. Now has restarted blood pressure medications as well. Had diabetic eye appointment this week, is being sent to specialist for further evaluation. No acute concerns at this time. KEITH PHAN NP [address] [place], [address], [employer]. 11/04/2024 09:35:14 01/26/2025 text/html ROS as noted in the HPI Presents today for medication concern. Expresses desire to stop taking lisinopril because he blood pressure is not really high and believes it is causing side effects. Patient reports he continues to have light sensitivity and blurred vision, especially in his left eye. He continues to see Dr. Bryan with [facility] for eye injections. but presents today for concerns that this could be caused by his lisinopril, stating his eye dr mentioned that this medicaton in particular could be making his symptoms worse. Patient reports that he routinely checks his blood pressure at home and is typically 130/70-sandra. . Denies headache, new changes in vison, and dizziness. KEITH PHAN NP [address] [place], [address], [employer]. 01/27/2025 16:51:24 02/03/2025 text/html ROS as noted in the HPI Patient presents today for 1 week follow-up after patient related decision to stop blood pressure medication. Reports that his blood pressure has measured elevated over the last week at his home blood pressure cuff, however he does not believe that that is correct. Denies headaches chest pain shortness of breath. Acknowledges that he does need bp support and is open to starting new medication. KEITH PHAN NP [address] [place], [address], [employer]. 02/03/2025 11:41:42 02/16/2025 text/html ROS as noted in the HPI Presents today for follow up after initiation of blood pressure medication. Denies chest pain, shortness of breath, dizziness.Continues to follow with diabetic home specialist for injections.See's pain management. Pain is currently well controlled. KEITH PHAN NP [address] [place], [address], [employer]. 02/17/2025 16:32:26
--- OUTSIDE RECORDS SUMMARY | 2025-03-31 08:22 | XMS_ITS | Continuity of Care Document ---
Author Organization [place] [facility] [employer] [facility] Address [address] [place] [phone] Assessment No assessment recorded. Plan of Treatment Reminders Order Date Submit Date Provider Last Modified By Organization Details Last Modified Time Details Appointments None recorded. Lab HbA1c (hemoglobi n A1c), blood [address], [address] [place] [address], [phone], 5 09:22:12 Referral None recorded. Procedures None recorded. Surgeries None recorded. Imaging None recorded. Medication Orders losartan 25 mg tablet 2024 025 [facility], [address] [place] [address], [address], 13:55:16 Patient TargetsNo targets recorded. Patient Instructions Encounter Date Encounter Id Patient Instructions Last Modified By Organization Details Last Modified Time 02/03/2025 [id number] learning about type 2 diabetes Not available 02/03/2025 09:22:12 type 2 diabetes: care instructions Not available 02/03/2025 09:22:12 high blood pressure: care instructions Not available 02/03/2025 09:22:12 learning about high blood pressure Not available 02/03/2025 09:22:12 Reason for Referral None Reported. Results Created Date Observation Date Name Description Value Unit Range Abnormal Flag Note LastModifiedBy Organization Detail LastModifiedTime 02/04/20 25 02/03/2025 HbA1c (hemo globi n A1c), blood HbA1c 7.1% Not Available [address], [place], [address], 02/03/2025 09:11:48 Result Notes None recorded. Problems Name Problem SNOMED Code Status Onset Date Resolution Date Notes Provider Name and Address Organization Details Recorded Time Gastroesophage al reflux disease without esophagitis 872873269 Active 2024 KEITH PHAN NP [address] [place] [address], [phone], [employer] 11:54:59 Essential hypertension 89028910 Active 2024 KEITH PHAN NP [address] [place] [address], [address], [employer] 11:55:52 Type 2 diabetes mellitus 76815889 Active 2024 KEITH PHAN NP [address] [place] [address], [address], [employer] 11:57:52 Disorder of eye due to diabetes mellitus 36900019 Active 2024 KEITH PHAN NP [address] [place] [address], [address], [employer] 08:15:29 Problem Notes None recorded. Medical Equipment None Reported. Allergies Allergen ID Allergen Name Allergen Category Reaction Reaction Severity Criticality Documentation Date Start Date Code Code System Note Provider Name and Address Organization Details Recorded Time 68347 aspirin medicatio n Not available Not available Not available 09/29/2024 1191 RxNorm Sharon Trudi [facility], [employer] 11:09:07 96478 Jardiance medicatio n Not available Not available Not available 09/29/2024 18754 59 RxNorm Sharon Trudi null, [employer] 11:09:18 12425 metformin medicatio n Not available Not available Not available 09/29/2024 6809 RxNorm Sharon vargas, [employer] 11:09:28 29884 fentanyl medicatio n Not available Not available Not available 09/29/2024 4337 RxNorm Sharon vargas, [employer] 5 11:09:47 Medications Name Sig Start Date Stop [...] t Available Vitals Date Recorded Body height Body mass index (BMI) Body weight Oxygen saturation Oxygen saturation in Arterial blood by Pulse oximetry Heart rate Body temperature Systolic And Diastolic Systolic And Diastolic Provider Name and Address Organization Details Last Updated DateTime 175.26 cm 26.6 kg/m2 91985.0 3 g 98 % 98 % 74 /min 95.9 [degF] 155/90 mm[Hg] 153/100 mm[Hg] Elisabeth Mckeon [employer], [employer] 09:06:47 Social History Question Answer Notes LastModified by Organizat ion Details LastModified Time Tobacco Smoking Status Never Smoker Sharon vargas [employer] 09/29/2024 11:10:40 Do You Have An Advance [...] available 09/29/2024 Are You A Caregiver? No Information not available 02/16/2025 What Type Of Water Resource Engineer Do You Use? None Information not available [...] Or The Highest Degree You Have Received? [id number] Information not available 09/29/2024 How Many Days Of Moderate To Strenuous Exercise, Like A Brisk Walk, Did You Do In The Last 7 Days? 5 Information not available 02/16/2025 On Those Days That You Engage In Moderate To Strenuous Exercise, How Many Minutes, On Average, Do You Exercise? 15 [email or web address] Information not available 02/16/2025 Have There Been Any Changes To Your Family Or Social Situation? Yes Information no t available 09/29/2024 Are There Any Guns Present In Your Home? No Information not available 09/29/2024 Which Of Your Hands Is Dominant? Right Information not available 09/29/2024 Do You Engage In Moderate/heavy Exercise (e.g. Brisk Walk, Jogging, Strength Training, Etc)? Yes Information not available 02/16/2025 What Is Your Home Situation? Other Information not available 09/29/2024 How Many Times In The Past Year Have You Used An Illegal Drug Or Used A Prescription Medication For Nonmedical Reasons? 0 [email or web address] Information not available 02/16/2025 How Many Years Have You Used Illicit Or Recreational Drugs? 35 Information not available 09/29/2024 Where Do You Live? SingleLevelHouse [email or web address] Information not available 02/16/2025 Are You Following A Low Salt Diet? Yes [email or web address] Information not available 02/16/2025 Do You Have A Medical Power Of Field Nurse Case Manager? No Information not available 09/29/2024 What Was The Date Of Your Most Recent Tobacco Screening? 02/16/2025 [email or web address] Information not available 02/16/2025 Do You Have Any Pets? No Information not available 09/29/2024 Do You Use Protection During Sex? No Information not available 09/29/2024 What Is Your Relationship Status? Information not available 09/29/2024 Have You Repeated Any Grades? No Information not available 09/29/2024 Do You Wear A Seatbelt When Driving Or As A Passenger? Yes [email or web address] Information not available 02/16/2025 Do You Use [...] Sporting Activities Do You Participate In? None [email or web address] Information not available 02/16/2025 Do You Use [...] You Feel Safe In Your Home? Yes [email or web address] Information not available 02/16/2025 Do You Have Any Dietary Restrictions? Yes [email or web address] Information not available 02/16/2025 Sex: Unknown Functional [...] 09/29/2024 Do you have transportation difficulties? No [email or web address] Information not available 02/16/2025 Are you able [...] anxious, or unable to sleep at night)? [id number] Information not available 02/16/2025 Do you have difficulty concentrating, remembering or making decisions? No Information no t available 09/29/2024 Are you or have you been involved with bullying? Yes Information not available 09/29/2024 Family History Nothing Reported. Medical History Condition Response Coronary Artery Disease N Other N Gout N Kidney Stones N Blood Diseases N Hyperthyroidism N Blood Transfusion N Breast Cancer N Emergency room visit since last appointm ent. N COPD N Depression N Dermatologic Disorders N Hypothyroidism N Lung Disease N Developmental or Behavioral Disorders N Defects or Inherited Disease N Breast Problem N Difficulty Swallowing N Anesthesia Complications N History of STI N Meniere's disease N Anxiety Disorder N Muscle, Joint, or Bone Problems N Autoimmune disease N Vision or Eye Problems N Arthritis N Polyps N Infertility N Mental Disorder N Congenital Anomalies N Acid Reflux (GERD) N Cancer N Stroke N Neurologic/Epilepsy N Endometriosis N Bladder or Kidney Problems N High Cholesterol N Liver Disease N Organ Transplant N Psychiatric/Mental Health Condition N Fibromyalgia N Dialysis N Schizophrenia N Headaches N Kidney Disease N Allergies/Hayfever N Heart [...] N Pulmonary Embolism N Tourette Syndrome N Chronic Ear Infections N Pre-Eclampsia N Hypertension N Chicken Pox N Autism Spectrum Disorder (ASD) N Osteoporosis N Thrombophilias N Immunizations Vaccine Type Date [...] ICD10 Code Diagnosis IMO Codes Diagnosis Note [id number] KEITH PHAN NP [address] [address] 01/26/2025 10:14:22 01/30/2025 14:44:18 Essential hypertension 63267342 I10 22883 Patient driven decision to stop lisinopril . Will keep blood pressure log for 1 week and return for follow up to discuss further BP maintenanc e.Watch sodium intake, be especially aware of sodium in foods that are pre packaged. Choose fresh or frozen vegetables over canned. Type 2 can betes mellitus 99619522 E11.9 54705000 Continue to take medication s as ordered. Discussed impact that good blood pressure control can have on preventing diabetes related complicati ons. [id number] KEITH PHAN NP [address] [address] 02/03/2025 08:53:24 02/03/2025 12:27:11 Type 2 diabetes mellitus 94922484 E11.9 90300525 Continue to take medication s as ordered. Discussed impact that good blood pressure control can have on preventing diabetes related complicati ons. A1c is 7.1, down form 7.3% at last visit. Essential hypertension 27836527 I10 22537 Starting medication as ordered below, will obtain new blood pressure cuff.Follo w up in 2 weeks. Health Concerns Section Related Observation LastModified by Organization Detai ls LastModified Time None Recorded Concern Status LastModified by Organization Details LastModified Time None Recorded Payers Encounter Date Sequence Insurance Name Policy Number Policy Rolle Covered Member ID Rolle Member ID Guarantor Name 02/03/2025 1 [employer] (MEDICAID REPLACEMENT - HMO) Irving Edmonds [id number] Irving Edmonds Notes Date Note Type Note Provider Name and Address Organization Details Recorded Time 02/03/2025 text/html ROS as noted in the [...] starting new medication. KEITH PHAN NP [address] [facility], [place], [address], [facility] [employer]. 02/03/2025 11:41:42
--- OUTSIDE RECORDS SUMMARY | 2025-03-31 08:22 | XMS_ITS | Continuity of Care Document ---
Author Organization MD - [employer] [facility] Address [address] [place] [id number] Assessment No assessment recorded. Plan of Treatment Reminders Order Date Submit Date Provider Last Modified By Organization Details Last Modified Time Details Appointments None recorded. Lab None recorded. Referral None recorded. Procedures None recorded. Surgeries None recorded. Imaging None recorded. Medication Orders losartan 50 mg tablet 2024 025 [facility], [address] [place] [address], [address], 14:03:58 Patient TargetsNo targets recorded. Patient Instructions Encounter Date Encounter Id Patient Instructions Last Modified By Organization Details Last Modified Time 02/16/2025 [id number] high blood pressure: care instructions Not available 02/16/2025 16:07:35 learning about high blood pressure Not available 02/16/2025 16:07:35 Reason for Referral None Reported. Results Created Date Observation Date Name Description Value Unit Range Abnormal Flag Note LastModifiedBy Organization Detail LastModifiedTime 02/04/2002/03/2025 HbA1c (hemo globi n A1c), blood HbA1c 7.1% Not Available [address], [id number], 02/03/2025 09:11:48 Result Notes None recorded. Problems Name Problem SNOMED Code Status Onset Date Resolution Date Notes Provider Name and Address Organization Details Recorded Time Gastroesophage al reflux disease without esophagitis 340133789 Active 2024 KEITH PHAN, LONNIE [address] [place], [address], [place] [employer] 11:54:59 Essential hypertension 16300464 Active 2024 KEITH PHAN, LONNIE [address] [place], [address], [employer] 5 11:55:52 Type 2 diabetes mellitus 15504723 Active 2024 KEITH HPAN, LONNIE [address] [place], [address], [place] [employer] 11:57:52 Disorder of eye due to diabetes mellitus 56177908 Active 2024 KEITH PHAN, LONNIE [address] [place] [address], [phone], [employer] 08:15:29 Problem Notes None recorded. Medical Equipment None Reported. Allergies Allergen ID Allergen Name Allergen Category Reaction Reaction Severity Criticality Documentation Date Start Date Code Code System Note Provider Name and Address Organization Details Recorded Time 18351 aspirin medicatio n Not available Not available Not available 09/29/2024 1191 RxNorm Sharon Trudi [employer], [employer] 11:09:07 85172 Jardiance medicatio n Not available Not available Not available 09/29/2024 16480 59 RxNorm Sharon Trudi [employer] 11:09:18 46586 metformin medicatio n Not available Not available Not available 09/29/2024 6809 RxNorm Sharon Trudi [employer], [employer] 11:09:28 28813 fentanyl medicatio n Not available Not available Not available 09/29/2024 4337 RxNorm Sharon Trudi [employer], [employer] 11:09:47 Medications Name Sig Start Date [...] TABLET BY MOUTH ONCE DAILY ADMINISTE Dejah BHAGATAnna MIGUELINAKraig 60 MINUTES BEFORE SEXUAL ACTIVITY. DO NOT [...] Available Vitals Date Recorded Body height Body height Body mass index (BMI) Body weight Oxygen saturation Oxygen saturation in Arterial blood by Pulse oximetry Heart rate Body temperature Systolic And Diastolic Systolic And Diastolic Provider Name and Address Organization Details Last Updated DateTime 175.26 cm 175.26 cm 26.9 kg/m2 48214.8 1 g 97 % 97 % 86 /min 97.8 [degF] 149/88 mm[Hg] 146/91 mm[Hg] Elisabeth Mckeon [employer] 15:57:20 Social History Question Answer Notes LastModified by Organizat ion Details LastModified Time Tobacco Smoking Status Never Smoker Sharon vargas [employer]. 09/29/2024 11:10:40 Do You Have An Advance [...] available 09/29/2024 Are You A Caregiver? No [email or web address] Information not available 02/16/2025 What Type Of Flocculator Operator Do You Use? None Information not available [...] Or The Highest Degree You Have Received? [id number] Information not available 09/29/2024 How Many Days Of Moderate To Strenuous Exercise, Like A Brisk Walk, Did You Do In The Last 7 Days? 5 [email or web address] Information not available 02/16/2025 On Those Days That You Engage In Moderate To Strenuous Exercise, How Many Minutes, On Average, Do You Exercise? 15 [email or web address] Information not available 02/16/2025 Have There Been Any Changes To Your Family Or Social Situation? Yes Information no t available 09/29/2024 Are There Any Guns Present In Your Home? No Information not available 09/29/2024 Which Of Your Hands Is Dominant? Right Information not available 09/29/2024 Do You Engage In Moderate/heavy Exercise (e.g. Brisk Walk, Jogging, Strength Training, Etc)? Yes [email or web address] Information not available 02/16/2025 What Is Your Home Situation? Other Information not available 09/29/2024 How Many Times In The Past Year Have You Used An Illegal Drug Or Used A Prescription Medication For Nonmedical Reasons? 0 Information not available 02/16/2025 How Many Years Have You Used Illicit Or Recreational Drugs? 35 Information not available 09/29/2024 Where Do You Live? SingleLevelHouse [email or web address] Information not available 02/16/2025 Are You Following A Low Salt Diet? Yes [email or web address] Information not available 02/16/2025 Do You Have A Medical Power Of Peanut Sorter? No Information not available 09/29/2024 What Was The Date Of Your Most Recent Tobacco Screening? 02/16/2025 [email or web address] Information not available 02/16/2025 Do You Have Any Pets? No Information not available 09/29/2024 Do You Use Protection During Sex? No Information not available 09/29/2024 What Is Your Relationship Status? Information not available 09/29/2024 Have You Repeated Any Grades? No Information not available 09/29/2024 Do You Wear A Seatbelt When Driving Or As A Passenger? Yes [email or web address] Information not available 02/16/2025 Do You Use [...] Sporting Activities Do You Participate In? None [email or web address] Information not available 02/16/2025 Do You Use [...] You Feel Safe In Your Home? Yes [email or web address] Information not available 02/16/2025 Do You Have Any Dietary Restrictions? Yes [email or web address] Information not available 02/16/2025 Sex: Unknown Functional [...] 09/29/2024 Do you have transportation difficulties? No [email or web address] Information not available 02/16/2025 Are you able [...] anxious, or unable to sleep at night)? [id number] [email or web address] Information not available 02/16/2025 Do you have [...] N Lung Disease N Dermatologic Disorders N COPD N Depression N Developmental or Behavioral Disorders N Defects [...] N High Cholesterol N Liver Disease N Psychiatric/Mental Health Condition N Organ Transplant N Fibromyalgia N Dialysis N Schizophrenia N [...] ICD10 Code Diagnosis IMO Codes Diagnosis Note [id number] KEITH PHAN NP [place] [phone] 01/26/2025 10:14:22 01/30/2025 14:44:18 Essential hypertension 56839840 I10 98030 Patient driven decision to stop lisinopril . Will keep blood pressure log for 1 week and return for follow up to discuss further BP maintenanc e.Watch sodium intake, be especially aware of sodium in foods that are pre packaged. Choose fresh or frozen vegetables over canned. Type 2 can betes mellitus 14574546 E11.9 [id number] Continue to take medication s as ordered. Discussed impact that good blood pressure control can have on preventing diabetes related complicati ons. [id number] KEITH PHAN NP [place] [phone] 02/03/2025 08:53:24 02/03/2025 12:27:11 Type 2 diabetes mellitus 13989008 E11.9 [id number] Continue to take medication s as ordered. Discussed impact that good blood pressure control can have on preventing diabetes related complicati ons. A1c is 7.1, down form 7.3% at last visit. Essential hypertension 92053757 I10 75273 Starting medication as ordered below, will obtain new blood pressure cuff.Follo w up in 2 weeks. [id number] KEITH PHAN NP [address] [phone] 02/16/2025 15:43:07 02/16/2025 16:12:53 Essential hypertension 30094523 I10 32084 stop losartan 25, start losartan 50 daily. 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 Denies chest pain, shortness of breath, dizziness.Continu es to follow with diabetic assurance specialist for injections.See's pain management. Pain is currently well controlled. KEITH PHAN NP [address] [place], [address], [facility] - [employer] 02/17/2025 16:32:26
--- NOTE | 2025-03-31 09:00 | MR_ITS ---
FINAL REPORT TECHNIQUE: Multiplanar MR without contrast CLINICAL HISTORY: low back pain, prior abnormal MRI Lumbar COMPARISON: 07/14/2023 FINDINGS: Sagittal images show normal vertebral height. Alignment is normal. Marrow signal pattern is unremarkable. T12-L1: Unremarkable L1-2: Minimal annular disc bulge. L2-3: Mild annular disc bulge and facet arthropathy. L3-4: Mild annular disc bulge. Moderate facet arthropathy. Borderline central canal stenosis and mild neuroforaminal narrowing. L4-5: Mild annular disc bulge. Moderate facet arthropathy. Mild central canal stenosis, slightly worse. Mild bilateral neuroforaminal narrowing. L5-S1: Minimal annular disc bulge and mild facet arthropathy. IMPRESSION: Lower lumbar degenerative changes, most pronounced at L4-5, slightly worse than prior. Reviewed, Interpreted and Dictated by Lilian Narvaez MD Transcribed by Mirian Glez Authenticated and [facility]
== END 2025-03-31 23:59 | disposition home or self-care (01) ==
LOC: RAD 08:19
PROVIDERS: Visit Provider Specialist
DX: M47.26 Other spondylosis with radiculopathy, lumbar region (principal); M47.27 Other spondylosis with radiculopathy, lumbosacral region; R20.0 Anesthesia of skin; G62.9 Polyneuropathy, unspecified; R93.7 Abnormal findings on diagnostic imaging of other parts of musculoskeletal system
CPT/HCPCS: 72148

== ENCOUNTER 2025-04-11 09:43 | Day surgery (SDC) | payer MEDICAID, SELFPAY ==
[2025-04-11 09:52] VITALS: BP 147/85; PULSE 100; RESP 18; O2SAT 98; BMI 26.6
[2025-04-11] MEDS: LIDOCAINE 1% 5ML PF VIAL 5 ML (10:07)
[2025-04-11] MEDS: DEXAMETHASONE 10MG/ML 1ML VIAL 10 MG (10:08)
[2025-04-11] MEDS: BUPIVACAINE 0.25% 10ML INJ 25 MG IJ (10:08)
[2025-04-11 10:09] VITALS: BP 147/85; PULSE 100; RESP 18; O2SAT 98
[2025-04-11 10:10] VITALS: BP 147/85; PULSE 100; RESP 18; O2SAT 98
--- NOTE | 2025-04-11 10:11 | P.PCN_ITS ---
Procedure Date: 04/11/25 Time: 10:00 Anesthesiologist:: Ovi Mercado CRNA Complications:: None Pre-procedure Diagnosis:: DJD left shoulder. Chronic left shoulder pain. Post-procedure Diagnosis:: Same. Indications for Procedure:: Patient is a pleasant 54-year-old male who comes to clinic today for a left suprascapular nerve block of cortisone and local anesthetic. Patient describes left shoulder pain as constant, dull, aching. Patient has 5/5 strength in the left arm. However limited range of motion secondary to left shoulder pain. He rates pain 7/10. He reports responding well to suprascapular injections in the past. Procedure Details:: Details of the procedure explained to the patient. The patient taken procedure and placed in the sitting position. The over the left shoulder and scapula was cleaned using chlorhexidine as a cleansing solution. Using a 25-gauge inch and half needle the left suprascapular notch was identified. After negative aspiration 4 cc of 1% lidocaine +4 cc of 0.25% Marcaine and 10 mg of de xamethasone was injected. Patient tolerated procedure without difficulty. No complications. Plan and Disposition:: Patient was discharged without incident.
[2025-04-11 10:13] VITALS: BP 129/94; PULSE 93; RESP 16; O2SAT 99
== END 2025-04-11 10:13 | disposition home or self-care (01) ==
PROVIDERS: Visit Provider Nurse Anesthetist, Certified Registered
DX: M19.012 Primary osteoarthritis, left shoulder (principal); I25.10 Atherosclerotic heart disease of native coronary artery without angina pectoris; E78.5 Hyperlipidemia, unspecified; E11.40 Type 2 diabetes mellitus with diabetic neuropathy, unspecified; Z82.49 Family history of ischemic heart disease and other diseases of the circulatory system; Z83.3 Family history of diabetes mellitus; Z83.42 Family history of familial hypercholesterolemia; F17.290 Nicotine dependence, other tobacco product, uncomplicated; Z79.899 Other long term (current) drug therapy; Z88.5 Allergy status to narcotic agent; Z88.8 Allergy status to other drugs, medicaments and biological substances
CPT/HCPCS: 64418; J0665; J1100; J2003